=== PATIENT | female | born 1960 | race Caucasian/White ===

== ENCOUNTER 2021-12-13 11:20 | Emergency (ER) | payer MEDICAID, SELFPAY ==
[2021-12-13] VITALS (23 sets, daily range): BP systolic 115–174; BP diastolic 72–111; PULSE 67–89; RESP 4–20; O2SAT 94–100
--- NOTE | 2021-12-13 11:15 | RT.EKG_ITS ---
APPROVED REPORT Exam: Resting ECG Reason for Exam: Patient Location: E HR:83 bpm ECG Measurements Heart Rate 83 AXIS RI 141 P 57 QRSd 86 QRS -33 QT 361 T 60 QTc 425 Conclusion Sinus rhythm...normal P axis Probable left atrial enlargement Left ventricular hypertrophy
--- NOTE | 2021-12-13 11:43 | ED.GENADUL_ITS ---
Discharge Plan Disposition Patient Disposition: HOME Condition: Improving Discharge Details Clinical Impression: Atypical chest pain, Hydronephrosis Primary Care Provider: Lyubov Delgado ED Provider: Alex Barrett Home Meds and New Rx's Prescriptions: Continued meloxicam 15 mg Tablet 15 mg PO DAILY 0RF valacyclovir 500 mg Tablet 500 mg PO DAILY 0RF fluoxetine 20 mg Capsule 60 mg PO DAILY 0RF Discontinued nitrofurantoin monohyd/m-cryst 100 mg Capsule 100 mg PO DAILY 0RF Discharge Instructions Instructions: Chest Pain (ED), DASH Eating Plan (ED) Additional Instructions: Our care management team will place a follow-up for you to urology clinic for recheck. You no longer have signs of active urinary tract infection. You may stop the previously prescribed nitrofurantoin. Please observe a low-salt diet. Please see enclosed information on the Dash diet. Please follow-up with your regular doctor in [place] next week for recheck. Continue once or twice daily home blood pressure monitoring. Return return to the emergency department for any acute concerns. Your work-up today included blood work with cardiac troponin, screening blood work, CT scan of the chest as well as abdomen and pelvis Medical Decision Making 61-year-old female presents from home. She was seen by her primary care physician yesterday for urinary tract infection symptoms sent for which she was placed on nitrofurantoin. At that visit they noted high blood pressure and patient was instructed to check the blood pressures at home. This morning she noted hypertension to 150s over 100 or so at home. This is associated with left frontal headache and left anterior chest discomfort. Patient presents to the ER with a blood pressure 170/110, pulse of 83, oxygenating normally. A broad differential diagnosis is considered, including pneumonia, pneumonitis, gastritis, acute coronary syndrome, PE, hypertensive crisis. Note of recent diagnosis of UTI. Patient given clonidine and a GI cocktail. She is referred for laboratory testing, EKG, chest x-ray. Chest x-ray without acute pulmonary findings. Laboratory analysis notes a white count of 4, hematocrit 42, platelets 217. Chemistries reassuring, troponin negative, D-dimer elevated at 737. Patient referred for CT of the chest to rule out PE given the elevated D-dimer. There is no evidence of chest pathology, but note is made of right hydronephrosis. The patient's urine does not show any evidence of infection, nor of hematuria. We will have her follow-up with Dr. Hendricks in clinic. I discussed with her that she may stop the previously prescribed nitrofurantoin. I will have her observe the Dash diet with low salt and ongoing checks of blood pressure at home. She will follow-up with her primary care for recheck. She is stable and improved, appropriate for discharge to home HPI General Mode of arrival: ambulatory . Date/Time Provider Initiated Documentation: 12/13/21 11:21 . Limitations to Documentation: no limitations . Information obtained by: patient . History of Present Illness 61 year old F presents to the emergency department with the chief complaint of Left-sided chest pain and headache with elevated blood pressure, described as moderate, Quality is described as dull, and is localized to the left. Patient reports no radiation. Patient started experiencing this hour(s) and it has been constant. improves with No relieving factors improve symptom(s), No exacerbating factors reported . Patient notes chest pain and headaches; denies cough, fever/chills, nausea/vomiting and syncope. Patient did receive the following treatments prior to arrival, none Related Data Home Medications Medication Instructions Recorded Confirmed fluoxetine 20 mg capsule 60 mg PO DAILY 12/13/21 12/13/21 meloxicam 15 mg tablet 15 mg PO DAILY 12/13/21 12/13/21 valacyclovir 500 mg tablet 500 mg PO DAILY 12/13/21 12/13/21 Allergies Allergy/AdvReac Type Severity Reaction Status Date / Time iodine Allergy Unverified 12/13/21 13:06 General Stated Complaint: Chest Pain MILA: 2 Review of Systems Narrative: Taking nitrofurantoin for UTI. Has mild upper epigastric burning discomfort. No vomiting, no change to stool. 8 systems were reviewed and otherwise negative PFSH All Active Problems (Updated 12/13/21 @ 18:06 by Alex Barrett MD) Atypical chest pain (Acute) Hydronephrosis (Acute) Medical History (Updated 12/13/21 @ 18:06 by Alex Barrett MD) Breast CA HTN (hypertension) Social History Smoking/Tobacco Use Status: Former Tobacco Use Smoking risk assessment performed?: Yes Drug use: Socially Substance use type: marijuana Do you feel safe at home: Yes Do you feel safe in your relationship?: Yes Exam Narrative Exam Narrative: GEN: awake, alert, oriented 3. Pleasant, well groomed, interactive. HEAD: Normocephalic, atraumatic ENT: Mucous membranes moist, oropharynx unremarkable, External ear exam unremarkable EYES: PERRL, EOMI NECK: Full ROM, no KAYCE, no menigismus CHEST/RESP: Nontender, clear to auscultation bilateral, no wheeze/rhonchi/rales CARDIOVASCULAR: RRR, no murmur, rub ann-marie. 2+ Rad pulse bilateral ABDOMEN: Soft, nontender, no mass. +Bowel sounds EXT: Full ROM, no edema, no rash Neuro: Grossly normal neurologic exam, conversant, interactive. Psych: Speech fluent, thoughts congruent, affect normal Course Vital Signs Vital signs: Vital Signs Pulse 83 12/13/21 11:30 Respiratory Rate 10 L 12/13/21 11:30 Blood Pressure 173/111 H 12/13/21 11:30 Pulse Oximetry 98 12/13/21 11:30 Pulse 83 12/13/21 11:30 Respiratory Rate 10 L 12/13/21 11:30 Respiratory Effort 12/13/21 11:33 Blood Pressure 173/111 H 12/13/21 11:30 Blood Pressure Position Supine 12/13/21 11:30 Pulse Oximetry 98 12/13/21 11:30 Oxygen Delivery Method Room Air 12/13/21 11:30 Oxygen Flow Rate 0 12/13/21 11:30 Pain Level 3 12/13/21 11:30
[2021-12-13] MEDS: ACETAMINOPHEN 1,000 MG/100 ML BTL 400 MG IVPB (12:04)
[2021-12-13] MEDS: Normal Saline Flush 10 ML SYR IVP (12:05)
[2021-12-13] MEDS: Normal Saline 1,000 ML 125 ML IV (12:05)
[2021-12-13] MEDS: cloNIDine 0.1 MG TAB 0.2 MG PO (12:05)
[2021-12-13] MEDS: Lidocaine 2% Viscous 1 ML Solution 15 ML PO (12:18)
[2021-12-13 12:19] LABS: Absolute Basophil Count 0.03 10^3/uL (0.0-0.2); Absolute Eosinophil Count 0.15 10^3/uL (0.0-0.7); Absolute Lymphocyte Count 1.45 10^3/uL (1.2-3.4); Absolute Monocyte Count 0.39 10^3/uL (0.1-0.8); Absolute Neutrophil Count 2.23 10^3/uL (1.2-6.7); Basophils % 0.7; Eosinophils % 3.5; HCT 42.7 % (36.0-46.0); HGB 14.1 g/dL (11.2-15.7); Lymphocytes % 34.1; MCH 29.7 pg (27.0-33.0); MCV 89.9 fL (80-95); MPV 9.7 fL (8.0-11.0); Monocytes % 9.2; Neutrophils % 52.5; Nucleated RBC 0 %; Platelet Count 217 10^3/uL (130-400); RBC 4.75 10^6/uL (3.93-5.22); RDW 13.6 % (11.7-14.6); RDW-SD 45.3 fL; WBC 4.25 10^3/uL (4.4-10.8)
--- NOTE | 2021-12-13 12:26 | DI.RAD_ITS ---
Exam(s) XR PORTABLE CHEST AP EXAM: XR PORTABLE CHEST AP CLINICAL HISTORY: L chest pain TECHNIQUE: 2D digital imaging was performed of the chest. One image was obtained. An AP view was ob tained. COMPARISON: No exams were available for comparison FINDINGS: MEDIASTINUM: Normal. HEART: Normal. PULMONARY VASCULATURE: Normal. LUNGS: Clear. PLEURAL SPACE: No pleural effusion or pneumothorax. BONE:Within normal limits for the patient's age. OTHER FINDINGS:Normal. IMPRESSION: No acute pulmonary findings. DATA REPOSITORY: RADIATION DOSE DELIVERED:
[2021-12-13 12:35] LABS: ALT 21 U/L (14-59); AST 15 U/L (15-37); Albumin 3.7 g/dL (3.4-5.0); Alkaline Phosphatase 60 U/L (46-116); Anion Gap 12.4 mmol/L (3-11); BUN 14 mg/dL (7-18); Bilirubin, Total 0.4 mg/dL (0.2-1.0); CO2 24.6 mmol/L (21.0-32.0); CREATININE 0.9 mg/dL (0.55-1.02); Calcium 9.1 mg/dL (8.5-10.1); Chloride 103 mmol/L (98-107); Glucose 109 mg/dL (74-106); Potassium 3.9 mmol/L (3.5-5.1); Sodium 140 mmol/L (136-145); Total Protein 7.6 g/dL (6.4-8.2); Troponin I < 50 ng/L (<or=60)
--- NOTE | 2021-12-13 12:45 | DI.CT_ITS ---
Exam(s) CT CHEST PE CTA EXAM: CT CHEST PE CTA CLINICAL HISTORY: L chest pain, elev DDImer. TECHNIQUE: Imaging Protocol: Axial CT angiography was performed with multi-slice acquisition and mu lti-planar and/or 3D reconstructions. CONTRAST MATERIAL: Intravenous: Omnipaque 350 Contrast volume:76 mL COMPARISON: CR XR PORTABLE CHEST AP from 12/13/2021 FINDINGS: Tracheobronchial tree: Patent where visualized. Pulmonary parenchyma: No consolidation or dominant measurable mass. No architectural distortion. Ther e is a 3.8 mm nodule associated with the right minor fissure. There is dependent atelectasis in the lung bases. Pulmonary Arteries: No evidence of filling defect to suggest pulmonary emboli. Mediastinum and Darshnaa: No dominant adenopathy or fluid collection. The esophagus is unremarkable. Visualized thyroid gland: Unremarkable. Pleura: No effusion or pneumothorax. Heart: The heart is not dilated. Coronary artery calcification is present. No pericardial effusion. Aorta: Thoracic aorta non-dilated. No evidence of dissection. Upper abdomen: There is dilatation of the right renal pelvis and asymmetric enhancement of the right kidney relative to the left. This is suspicious for hydronephrosis. There is mild stranding around the right kidney. There is a 1.1 cm round hypodense lesion in the left lobe of the liver. Its appe arance is suggestive of a cyst. Soft tissues: Unremarkable. Bones: Within normal limits for the patient's age. IMPRESSION: 1. No evidence of pulmonary embolism, thoracic aortic dissection or aneurysm. 2. Dilatation of the right renal pelvis and mild stranding around the right kidney. The findings are suspicious for hydronephrosis. Renal colic CT may be obtained for further evaluation. 3. Results of this exam have been verbally communicated with provider. RADIATION DOSE DELIVERED: 445.45mGy.cm Total DLP DATA REPOSITORY: All CT scans at this facility are submitted to the National Radiology Data Registry (NRDR) Dose Index Registry (DIR) with the [employer] ([employer]). RADIATION OPTIMIZATION: All CT scans at this facility use at least one of these dose optimization te chniques: automated exposure control; mA and/or kV adjustment per patient size (includes targeted exa ms where dose is matched to clinical indication); or iterative reconstruction.
[2021-12-13 12:51] LABS: D-Dimer 737 ng/mlFEU (<500)
[2021-12-13] MEDS: Ketorolac 15 MG/ML VIAL IVP (13:07)
[2021-12-13] MEDS: diphenhydrAMINE 50 MG/ML VIAL IVP (13:47)
[2021-12-13] MEDS: methylPREDNISolone SUCC 125 MG VIAL IVP (13:47)
[2021-12-13] MEDS: Omnipaque 350 MG/ML 100 ML BTL IJ (15:13)
--- NOTE | 2021-12-13 15:15 | DI.CT_ITS ---
Exam(s) CT RENAL COLIC WO EXAM: CT RENAL COLIC WO CLINICAL HISTORY: R hydronephrosis, pain. TECHNIQUE: Imaging Protocol: Axial computed tomography images with coronal and sagittal reformatted images were created and reviewed. COMPARISON: CT CT CHEST PE CTA from 12/13/2021 FINDINGS: There is IV contrast present secondary to the patient's CT angiography of the chest from earlier in . ABDOMEN: Lung Bases: Normal where visualized. Liver: Normal density. There is a cyst in the left lobe of the liver. Gallbladder and biliary tract: No radiodense calculus or biliary ductal dilation. Pancreas: Normal density, no abnormal calcifications or inflammatory process. Spleen: Normal. Kidneys: Normal size, contour and axis.There is marked dilatation of the right renal collecting syste m and mild dilatation of the right ureter. The IV contrast lingers in the renal pelvis. No calcifie d stone is seen. The right UVJ cannot be well seen due to the IV contrast in the urinary bladder. N o masses seen. The left kidney is unremarkable without evidence of obstruction. Adrenal glands: No mass is seen. Lymph nodes: Within normal limits. Abdominal Aorta: Abdominal portion non-dilated. PELVIS: Bladder:Symmetric distention, no gross wall thickening. Bowel: No obstruction or bowel wall thickening. Appendix is unremarkable. There is a small hiatal he rnia. Peritoneal cavity: No ascites, collection or mesenteric inflammatory response. No free air. Reproductive organs: Within normal limits. Bones: Within normal limits. Soft Tissues: Within normal limits. IMPRESSION: Hydronephrosis of the right kidney. No stone is visualized. This may however be secondary to obscur ation by the IV contrast material in the collecting system and urinary bladder. Follow-up as clinica lly appropriate. Results of this exam have been verbally communicated with provider. RADIATION DOSE DELIVERED: 1,096.48mGy.cm Total DLP DATA REPOSITORY: All CT scans at this facility are submitted to the National Radiology Data Registry (NRDR) Dose Index Registry (DIR) with the [employer] (ACR). RADIATION OPTIMIZATION: All CT scans at this facility use at least one of these dose optimization te chniques: automated exposure control; mA and/or kV adjustment per patient size (includes targeted exa ms where dose is matched to clinical indication); or iterative reconstruction.
[2021-12-13 15:36] LABS: Troponin I < 50 ng/L (<or=60)
[2021-12-13 17:12] LABS: Bilirubin Negative (Negative); Blood Negative (Negative); Clarity Clear (Clear); Glucose Negative (Negative); Ketones Negative (Negative); Leukocyte Esterase Negative (Negative); Nitrite Negative (Negative); Specific Gravity 1.015 (1.005-1.025); Urobilinogen 0.2 EU/dL (Up TO 0.2)
--- NOTE | 2021-12-13 17:32 | NUR.NOTE ---
Nursing Note: Referral faxed to [facility] for right hydronephrosis, with them to determine time of appt. Isela Lobo
== END 2021-12-13 18:08 | disposition home or self-care (01) ==
LOC: ER 17:51
PROVIDERS: Emergency Provider Emergency Medicine; PCP Nurse Practitioner Family
DX: R07.89 Other chest pain (principal)
CPT/HCPCS: 36415; 71275; 80053; 93005; 96361; 96365; 96375; 99285; 71045; 74176; 81003; 83735; 84484; 85025; 85379; 93010; 99284; J0131; J1200; J1885; J2930; J3490

== ENCOUNTER → 2022-02-21 10:08 | Outpatient (CLI) | payer MEDICAID, SELFPAY ==
--- NOTE | 2022-02-21 10:00 | DI.US_ITS ---
Exam(s) US LOWER EXTREMITY VENOUS RT EXAM: US LOWER EXTREMITY VENOUS RT CLINICAL HISTORY: RT CALF PAIN, M79.661. TECHNIQUE: Ultrasound performed using standard protocol. COMPARISON: No exams were available for comparison FINDINGS: Duplex venous ultrasound was performed according to the usual protocol. The deep veins are freely com pressible throughout and there is normal flow augmentation with manual calf compression. 2D and Doppl er evaluation are unremarkable. IMPRESSION: No evidence of deep venous thrombosis of the right lower extremity. DATA REPOSITORY:
== END ==
PROVIDERS: PCP Nurse Practitioner Family; Visit Provider Nurse Practitioner Family
DX: M79.661 Pain in right lower leg (principal)
CPT/HCPCS: 93971

== ENCOUNTER 2023-03-12 15:57 | Emergency (ER) | payer MEDICAID, SELFPAY ==
[2023-03-12] VITALS (51 sets, daily range): BP systolic 138–211; BP diastolic 80–140; PULSE 64–166; RESP 6–34; TEMP 36.4; O2SAT 85–99
--- NOTE | 2023-03-12 16:00 | RT.EKG_ITS ---
APPROVED REPORT Exam: Resting ECG Reason for Exam: chest pain Patient Location: E HR:74 bpm ECG Measurements Heart Rate 74 AXIS DE 143 P 70 QRSd 84 QRS -3 QT 376 T 59 QTc 417 Conclusion Sinus rhythm...normal P axis, V-rate 60- 99 Probable left atrial enlargement...P >50mS, <-0.10mV V1
--- NOTE | 2023-03-12 16:23 | W.ED.GENAD ---
Discharge Plan Disposition Patient Disposition: Home Discharge Details Clinical Impression: Urinary tract infection, Atypical chest pain, HTN (hypertension) Primary Care Provider: Lyubov Delgado ED Provider: Joshua Santo Meds and New Rx's Prescriptions: New ciprofloxacin HCl 250 mg tablet 250 mg PO BID 7 Days Qty: 14 0RF Continued benzonatate 100 mg capsule 100 mg PO TID PRN (Reason: cough) Qty: 14 0RF Patient Comments: not taking meloxicam 15 mg Tablet 15 mg PO DAILY valacyclovir 500 mg Tablet 500 mg PO DAILY fluoxetine 20 mg Capsule 60 mg PO DAILY losartan 100 mg Tablet 100 mg PO DAILY Discharge Instructions Instructions: Chest Pain (ED), Urinary Tract Infection in Women (ED), Hypertension (ED) Referrals: Lyubov Delgado [Primary Care Provider] - 5 days Discharge Data Discharge Physician: Joshua Santo Medical Decision Making Patient who presents to the emergency department with very high blood pressure chest pain very anxious with urinary symptoms. Patient had labs done urinalysis 2 troponins 3 hours apart and a D-dimer. Urinalysis showed a UTI which was treated with ciprofloxacin. EKG was within normal limits bedside echo shows mild LVH but no abnormality. Labs which included 2 troponins were negative. D-dimer was elevated and she subsequently had a CAT scan angiogram of the chest which shows no pulmonary embolus and no other abnormality. It was concerning that she has had high blood pressure all along is uncontrolled although she was sleeping the blood pressure was 130/80 and on discharge was 140/100. I have advised her to follow-up with her primary care physician for she might need another medication to add to her hypertensive regimen Differential Diagnosis Differential Diagnosis: 1. Uncontrolled hypertension 2. Acute coronary syndrome 3. Urinary tract Medical Records Medical records reviewed: Yes I reviewed the patient's medical records. Imaging Data Radiologic Study: Imaging: CT Scan Radiologist's impression: No acute abnormality no evidence of pulmonary embolus Lab Data Lab results reviewed: Yes I reviewed the patient's lab results. Labs: RUN DATE: 03/12/23 [facility] PAGE 1 RUN TIME: [id number] RUN USER: [place] [address] Sunshine Bernal MD PATIENT REPORT PATIENT: Shannon Brock LOC: [facility] #: [id number] /SX: 1960 F ROOM: RE03/12/[address]: Joshua Santo M.D. STATUS: REG ER BED: DIS: SPEC #: [id number] MARTHA: 03/12/23 STATUS: COMP REQ #: [id number] RECD: 03/12/[address]: Joshua Santo M.D. ENTERED: 03/12/[address]: LYUBOV DELGADO APRN FAX #: ORDERED: Urinalysis, UA Micro Test Result Flag Reference Verified Color Yellow Yellow 03/12/23 Clarity Clear Clear 03/12/23 Specific [place] 1.015 1.005-1.025 03/12/23 pH 7.0 5-8 03/12/23 Leukocyte Esterase Large H Negative 03/12/23 Nitrite Negative Negative 03/12/23 Protein Negative Negative mg/dL 03/12/23 Glucose Negative Negative mg/dL 03/12/23 Ketones Negative Negative mg/dL 03/12/23 Urobilinogen 0.2 Up to 0.2 mg/dL 03/12/23 Bilirubin Negative Negative 03/12/23 Blood Small H Negative 03/12/23 WBC 10-20 H 0-5 HPF 03/12/23 RBC 3-5 H 0-2 HPF 03/12/23 Epithelial Cells Few Negative HPF 03/12/23 Bacteria Moderate Negative HPF 03/12/23 Crystals Negative Negative HPF 03/12/23 Mucus Negative Negative 03/12/23 Casts Negative Negative LPF 03/12/23 C & S Indicated? 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 STATUS: REG ER BED: DIS: SPEC #: [id number] MRATHA: 03/12/23 STATUS: COMP REQ #: [id number] RECD: 03/12/[address]: Joshua Santo M.D. ENTERED: 03/12/23 [facility] DR: LYUBOV DELGADO APRN FAX #: ORDERED: CBC/Diff Test Result Flag Reference Verified WBC 6.30 4.4-10.8 10^3/uL 03/12/23 RBC 4.34 3.93-5.22 10^6/uL 03/12/23 HGB 13.1 11.2-15.7 g/dL 03/12/23 HCT 39.4 36.0-46.0 % 03/12/23 MCV 91 80-95 fL 03/12/23 MCH 30.2 27.0-33.0 pg 03/12/23 MCHC 33.2 32.0-36.0 % 03/12/23 RDW 14.2 11.7-14.6 % 03/12/23 Platelet Count 228 130-400 10^3/uL 03/12/23 MPV 9.4 8.0-11.0 fL 03/12/23 Neutrophils % 54.8 03/12/23 Lymphocytes % 32.2 03/12/23 Monocytes % 10.3 03/12/23 Eosinophils % 1.9 03/12/23 Basophils % 0.6 03/12/23 Immature Grans % 0.2 03/12/23 Nucleated RBC 0.0 0.0-0.3 % 03/12/23 Absolute Neutrophil Count 3.45 1.2-6.7 10^3/uL 03/12/23 Absolute Lymphocyte Count 2.03 1.2-3.4 10^3/uL 03/12/23 Absolute Monocyte Count 0.65 0.1-0.8 10^3/uL 03/12/23-1711 Absolute Eosinophil Count 0.12 0.0-0.7 10^3/uL 03/12/23 Absolute Basophil Count 0.04 0.0-0.2 10^3/uL 03/12/23 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 STATUS: REG ER BED: DIS: SPEC #: [id number] MARTHA: 03/12/23 STATUS: COMP REQ #: [id number] RECD: 03/12/[address]: Joshua Santo M.D. ENTERED: 03/12/23 [facility] DR: LYUBOV DELGADO APRN FAX #: ORDERED: CMP, MG, Troponin I, NT-proBNP Test Result Flag Reference Verified Calcium 9.1 8.5-10.1 mg/dL 03/12/23 Glucose 96 74-106 mg/dL 03/12/23 BUN 19 H 7-18 mg/dL 03/12/23 Creatinine 1.1 H 0.55-1.02 mg/dL 03/12/23 Estimated GFR 56.81 mL/min/1.73m2 03/12/23 The eGFR is calculated from a serum creatinine using the CKD-EPI 2020 equation. Other variables required for the equation are gender and age; this equation does not include a race coefficient. This equation has similar overall performance to previous equations except values may differ, in particular, in patients with higher values of eGFR and younger-aged adults. Total Protein 7.3 6.4-8.2 g/dL 03/12/23 Albumin 3.3 L 3.4-5.0 g/dL 03/12/23 Bilirubin, Total 0.2 0.2-1.0 mg/dL 03/12/23 Alk Phos 54 46-116 U/L 03/12/23 Sodium 138 136-145 mmol/L 03/12/23 Potassium 4.3 3.5-5.1 mmol/L 03/12/23 Chloride 103 98-107 mmol/L 03/12/23 CO2 29.8 21.0-32.0 mmol/L 03/12/23 Anion Gap 5.2 3-11 mmol/L 03/12/23 AST 12 L 15-37 U/L 03/12/23 ALT 18 14-59 U/L 03/12/23 Magnesium 2.0 1.8-2.4 mg/dL 03/12/23 Cardiac Troponin I < 50 <or=60 ng/L 03/12/23 NT-proBNP 433 H <300 pg/mL 03/12/23 NT-proBNP values <300 pg/mL have a 98% negative predictive value for excluding acute congestive heart failure (CHF). NT-proBNP values >450 pg/mL are consistent with CHF in adults <50 years of age. A diagnostic cut-off of 900 pg/mL has been suggested in adults >50 years of age in the absence of renal failure. A cut-off of 1200 pg/mL for patients with an eGFR less than 60 yields a diagnostic sensitivity and specificity of 89% and 72% for acute congestive failure. NOTE: Supra-physiologic doses of Biotin(B7)may cause false negative results. RUN DATE: 03/12/23 [facility] PAGE 1 RUN TIME: [phone] RUN USER: [place] [address] Snushine Bernal MD PATIENT REPORT PATIENT: Shannon Brock LOC: ER U #: [id number] /SX: 1960 F ROOM: RE03/12/[address]: Joshua Santo M.D. STATUS: REG ER BED: DIS: SPEC #: [id number] MARTHA: 03/12/23 STATUS: COMP REQ #: [id number] RECD: 03/12/[address]: Joshua Santo M.D. 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 HPI Narrative: Patient who presents to the emergency department complaining of midsternal on and off chest pain anxiety and also reports urinary frequency and urgency. Patient states she is very frustrated was told her primary care physician and they have not treated her urinary infection that she thinks she has. Patient reports dysuria. Also the patient states that her blood pressure has been high and she is sometimes unable to sleep. Denies any sweating denies any syncope denies any palpitation Related Data Home Medications Medication Instructions Recorded Confirmed fluoxetine 20 mg capsule 60 mg PO DAILY 12/13/21 03/12/23 meloxicam 15 mg tablet 15 mg PO DAILY 12/13/21 03/12/23 valacyclovir 500 mg tablet 500 mg PO DAILY 12/13/21 03/12/23 benzonatate 100 mg capsule 100 mg PO TID PRN cough #14 caps 10/12/22 10/12/22 ciprofloxacin HCl 250 mg tablet 250 mg PO BID 7 days #14 tabs 03/12/23 losartan 100 mg tablet 100 mg PO DAILY 03/12/23 03/12/23 Previous Rx's Medication Instructions Recorded benzonatate 100 mg capsule 100 mg PO TID PRN cough #14 caps 10/12/22 ciprofloxacin HCl 250 mg tablet 250 mg PO BID 7 days #14 tabs 03/12/23 Allergies Allergy/AdvReac Type Severity Reaction Status Date / Time fosaprepitant Allergy Unverified 03/12/23 16:09 iodine Allergy Unverified 03/12/23 16:09 General Stated Complaint: Chest Pain MILA: 3 Review of Systems All systems reviewed & are unremarkable except as noted in HPI and below Constitutional Constitutional: Reports as per HPI and Reports difficulty sleeping Eyes Eyes: Reports as per HPI and Reports system reviewed and no additional complaints, except as documented ENT Ears, Nose, Mouth, and Throat: Reports system reviewed and no additional complaints, except as documented and Reports as per HPI Cardiovascular Cardiovascular: Reports as per HPI and Reports system reviewed and no additional complaints, except as documented Respiratory Respiratory: Reports as per HPI Gastrointestinal Gastrointestinal: Reports as per HPI Genitourinary Genitourinary: Reports nocturia and Reports dysuria Musculoskeletal Musculoskeletal: Reports system reviewed and no additional complaints, except as documented Neurologic Neurologic: Reports system reviewed and no additional complaints, except as documented and Reports as per HPI Psychiatric Psychiatric: Reports anxiety PFSH All Active Problems (Updated 03/12/23 @ 22:19 by Joshua Santo MD) Urinary tract infection (Acute) Atypical chest pain (Acute) HTN (hypertension) (Chronic) Medical History Breast CA HTN (hypertension) Social History Smoking/Tobacco Use Status: Former Tobacco Use Smoking risk assessment performed?: Yes Drug use: Socially Substance use type: marijuana Do you feel safe at home: Yes Do you feel safe in your relationship?: Yes Exam Const General: cooperative, healthy appearing, comfortable and no acute distress HENMT Head: normal to inspection, no palpable skull fracture, normocephalic and atraumatic Eyes General: appearance normal, both eyes and all related structures Eyelids: eyelids normal Pupils: PERRL EOM: EOM intact bilaterally Neck Neck: normal visual inspection, full ROM and no lymphadenopathy Chest Chest: normal inspection of the chest Breast inspection: Other (Patient with bilateral mastectomies) Resp Effort & Inspection: normal respiratory effort and able to speak in complete sentences Auscultation: clear to auscultation bilaterally Cardio Jugular venous pressure: no JVD Palpation: normal PMI Rate: regular rate Rhythm: regular rhythm Heart Sounds: S1 normal and S2 normal GI Inspection: normal to inspection Palpation: soft Back/Spine/Pelvis Back: no CVA tenderness Skin General skin exam: no rashes or lesions noted Neuro General: patient alert, patient awake and patient oriented x3 Cranial Nerves: CN's II-XI intact bilaterally Extrem General: normal to inspection and full ROM Psych Appearance: grossly normal Mood: anxious mood Course Patient presents to the emergency department complaining of chest pain was noted to be hypertensive with initial pressures in 160/125 but subsequently she calmed down and the pressure came down to 130/80. Vital Signs Vital signs: Vital Signs Temperature 36.4 C 03/12/23 16:07 Pulse 81 03/12/23 16:07 Respiratory Rate 18 03/12/23 16:07 Blood Pressure 195/125 H 03/12/23 16:07 Pulse Oximetry 99 03/12/23 16:07 Temperature 36.4 C 03/12/23 16:07 Temperature Source Oral 03/12/23 16:07 Pulse 81 03/12/23 16:07 Respiratory Rate 18 03/12/23 16:07 Respiratory Effort Normal, Non-Labored 03/12/23 16:07 Blood Pressure 195/125 H 03/12/23 16:07 Pulse Oximetry 99 03/12/23 16:07 POCUS Exam (ED) Limited Cardiac Exam DATE OF EXAM: 03/12/23 TIME OF EXAM: 22:17 PROVIDER THAT PERFORMED THE STUDY: Joshua Santo IS THIS A REPEAT EXAM DURING THIS ENCOUNTER: no REASON FOR EXAM: Chest pain VISUALIZED STRUCTURES: Four Chambers, Left atrium, Left ventricle, LVOT, Right atrium, Right ventricle, Aortic valve, Mitral valve, Interventricular septum and IVC VIEW OBTAINED: Apical 4-Chamber, Parasternal long-axis, Parasternal short-axis and Subxiphoid PERTINENT FINDINGS/IMPRESSION: IVC inspiratory collapsability and No apparent abnormalities; No LV dysfunction, No pericardial effusion, No plethoric IVC and No RV dysfunction DIFFERENTIAL DIAGNOSES: Normal left ventricular function normal IVC collapsibility mild LVH no pericardial effusion normal bedside echo Exam complete
--- NOTE | 2023-03-12 16:45 | DI.RAD_ITS ---
Exam(s) XR PORTABLE CHEST AP EXAM: XR PORTABLE CHEST AP CLINICAL HISTORY: chest pain TECHNIQUE: 2D digital imaging was performed of the chest. One image was obtained. An AP view was ob tained. COMPARISON: CR XR PORTABLE CHEST AP from 12/13/2021 FINDINGS: MEDIASTINUM: Normal. HEART: Normal. PULMONARY VASCULATURE: Normal. LUNGS: Clear. PLEURAL SPACE: No pleural effusion or pneumothorax. BONE:Within normal limits for the patient's age. OTHER FINDINGS:Normal. IMPRESSION: No acute pulmonary findings. DATA REPOSITORY: RADIATION DOSE DELIVERED:
[2023-03-12 17:08] LABS: Abs Immature Grans 0.01 10^3/uL (0.0-0.06); Absolute Basophil Count 0.04 10^3/uL (0.0-0.2); Absolute Eosinophil Count 0.12 10^3/uL (0.0-0.7); Absolute Lymphocyte Count 2.03 10^3/uL (1.2-3.4); Absolute Monocyte Count 0.65 10^3/uL (0.1-0.8); Absolute Neutrophil Count 3.45 10^3/uL (1.2-6.7); Basophils % 0.6; Eosinophils % 1.9; HCT 39.4 % (36.0-46.0); HGB 13.1 g/dL (11.2-15.7); Immature Grans % 0.2; Lymphocytes % 32.2; MCH 30.2 pg (27.0-33.0); MCHC 33.2 % (32.0-36.0); MCV 91 fL (80-95); MPV 9.4 fL (8.0-11.0); Monocytes % 10.3; Neutrophils % 54.8; Platelet Count 228 10^3/uL (130-400); RBC 4.34 10^6/uL (3.93-5.22); RDW 14.2 % (11.7-14.6); RDW-SD 47.8 fL
[2023-03-12 17:27] LABS: ALT 18 U/L (14-59); AST 12 U/L (15-37); Albumin 3.3 g/dL (3.4-5.0); Alkaline Phosphatase 54 U/L (46-116); Anion Gap 5.2 mmol/L (3-11); BUN 19 mg/dL (7-18); Bilirubin, Total 0.2 mg/dL (0.2-1.0); CO2 29.8 mmol/L (21.0-32.0); CREATININE 1.1 mg/dL (0.55-1.02); Calcium 9.1 mg/dL (8.5-10.1); Chloride 103 mmol/L (98-107); Estimated GFR 56.81 (mL/min/1.73m2); Glucose 96 mg/dL (74-106); NT-proBNP 433 pg/mL (<300); Potassium 4.3 mmol/L (3.5-5.1); Sodium 138 mmol/L (136-145); Total Protein 7.3 g/dL (6.4-8.2); Troponin I < 50 ng/L (<or=60)
[2023-03-12 17:40] LABS: D-Dimer 752 ng/mlFEU (<500)
--- NOTE | 2023-03-12 17:46 | DI.VRAD_ITS ---
PROCEDURE INFORMATION: Exam: XR Chest Exam date and time: 03/12/2023 5:19 PM Age: 62 years old Clinical indication: Chest pain TECHNIQUE: Imaging protocol: Radiologic exam of the chest. Views: 1 view. COMPARISON: CR XR PORTABLE CHEST AP 12/13/2021 12:12 PM FINDINGS: Lungs: Unremarkable. No consolidation. Pleural spaces: Unremarkable. No pleural effusion. No pneumothorax. Heart/Mediastinum: Unremarkable. No cardiomegaly. Bones/joints: Unremarkable. IMPRESSION: No acute findings. Dictated and Authenticated by: Dorothy Tillman MD. Ordering:JERZY Lewis MD
--- NOTE | 2023-03-12 18:30 | DI.CT_ITS ---
Exam(s) CT CHEST PE CTA EXAM: CT CHEST PE CTA CLINICAL HISTORY: chest pain and dyspnea. TECHNIQUE: Imaging Protocol: Axial CT angiography was performed with multi-slice acquisition and mu lti-planar and/or 3D reconstructions. CONTRAST MATERIAL: Intravenous: Omnipaque 350 contrast volume:100 mL COMPARISON: CT CT RENAL COLIC WO from 12/13/[address] CHEST PE CTA from 12/13/2021 FINDINGS: Tracheobronchial tree: Patent where visualized. Pulmonary parenchyma: No consolidation or dominant measurable mass. There is a stable perifissural no dule associated with the right middle lobe. There also stable peripheral nodules in the medial aspec t of the right lower lobe. The largest nodule is 5 mm. No new pulmonary nodules are seen. There ar e dependent atelectatic changes in the lungs. No focal consolidating infiltrates are present. Pulmonary Arteries: No evidence of filling defect to suggest pulmonary emboli. Mediastinum and [place]arshana: No dominant adenopathy or fluid collection. The esophagus is unremarkable. Visualized thyroid gland: Unremarkable. Pleura: No effusion or pneumothorax. Heart: There is mild cardiomegaly. Mild coronary artery calcification is present. No pericardial ef fusion. Aorta: Thoracic aorta non-dilated. No evidence of dissection. Upper abdomen: There is a stable cyst in the left lobe of the liver. Soft tissues: Unremarkable. Bones: Within normal limits for the patient's age. IMPRESSION: No evidence of pulmonary embolism, thoracic aortic dissection or aneurysm. RADIATION DOSE DELIVERED: 399.07mGy.cm Total DLP DATA REPOSITORY: All CT scans at this facility are submitted to the National Radiology Data Registry (NRDR) Dose Index Registry (DIR) with the [employer] (ACR). RADIATION OPTIMIZATION: All CT scans at this facility use at least one of these dose optimization te chniques: automated exposure control; mA and/or kV adjustment per patient size (includes targeted exa ms where dose is matched to clinical indication); or iterative reconstruction.
[2023-03-12 18:40] LABS: Bilirubin Negative (Negative); Blood Small (Negative); Clarity Clear (Clear); Glucose Negative (Negative); Ketones Negative (Negative); Leukocyte Esterase Large (Negative); Nitrite Negative (Negative); Specific Gravity 1.015 (1.005-1.025); Urobilinogen 0.2 mg/dL (Up to 0.2)
[2023-03-12 18:47] LABS: Bacteria Moderate HPF (Negative); Casts Negative LPF (Negative); Crystals Negative HPF (Negative); Epithelial Cells Few HPF (Negative); Mucus Negative (Negative)
[2023-03-12 18:48] LABS: C & S Indicated? Yes
[2023-03-12] MEDS: diphenhydrAMINE 50 MG/ML VIAL 25 MG IVP (19:30)
[2023-03-12] MEDS: methylPREDNISolone SUCC 125 MG VIAL IVP (19:30)
[2023-03-12] MEDS: Omnipaque 350 MG/ML 100 ML BTL IJ (20:22)
[2023-03-12] MEDS: Normal Saline Flush 10 ML SYR IVP (20:25)
[2023-03-12] MEDS: Normal Saline - Diluent 50 ML VIAL IJ (20:25)
[2023-03-12 20:28] LABS: Troponin I < 50 ng/L (<or=60)
--- NOTE | 2023-03-12 21:31 | DI.VRAD_ITS ---
PROCEDURE INFORMATION: Exam: CTA Chest With Contrast Exam date and time: 03/12/2023 8:39 PM Age: 62 years old Clinical indication: Dyspnea and other: Chest pain TECHNIQUE: Imaging protocol: Computed tomographic angiography of the chest with contrast. 3D rendering (Not supervised by radiologist): MIP and/or 3D reconstructed images were created by the technologist. Contrast material: 350; Contrast volume: 100 ml; Contrast route: INTRAVENOUS (IV); COMPARISON: CT CHEST PE CTA 12/13/2021 2:56 PM FINDINGS: Pulmonary arteries: Normal. No pulmonary emboli. Aorta: Unremarkable. No aortic aneurysm. No aortic dissection. Lungs: Unremarkable. No consolidation. No masses. Pleural spaces: Unremarkable. No pneumothorax. No pleural effusion. Heart: Unremarkable. No cardiomegaly. No pericardial effusion. Lymph nodes: Unremarkable. No enlarged lymph nodes. Bones/joints: Unremarkable. No acute fracture. Soft tissues: Unremarkable. IMPRESSION: No acute findings. Dictated and Authenticated by: Clifford Germain MD. Ordering:JERZY Lewis MD
[2023-03-14 10:33] LABS: Lyme Ab w Rflx to Lyme Confirm Negative (Negative)
== END 2023-03-12 22:26 | disposition home or self-care (01) ==
PROVIDERS: Emergency Provider Emergency Medicine Emergency Medical Services; PCP Nurse Practitioner Family
DX: R07.9 Chest pain, unspecified (principal); N39.0 Urinary tract infection, site not specified; I10 Essential (primary) hypertension; Z87.891 Personal history of nicotine dependence
CPT/HCPCS: 36415; 71275; 80053; 93005; 96374; 96375; 99283; 71045; 81003; 81015; 83735; 83880; 84484; 85025; 85379; 86618; 87086; 93010; 99284; J1200; J2930; J3490

== ENCOUNTER 2023-04-04 12:10 | Outpatient (CLI) | payer MEDICAID, SELFPAY ==
[2023-04-04 12:45] LABS: ALT 21 U/L (14-59); AST 17 U/L (15-37); Albumin 3.6 g/dL (3.4-5.0); Alkaline Phosphatase 51 U/L (46-116); Anion Gap 6.8 mmol/L (3-11); BUN 17 mg/dL (7-18); Bilirubin, Total 0.4 mg/dL (0.2-1.0); CO2 30.2 mmol/L (21.0-32.0); Calcium 9.1 mg/dL (8.5-10.1); Chloride 103 mmol/L (98-107); Glucose 104 mg/dL (74-106); Potassium 3.3 mmol/L (3.5-5.1); Sodium 140 mmol/L (136-145); Total Protein 7.2 g/dL (6.4-8.2)
== END 2023-04-04 12:11 | disposition home or self-care (01) ==
LOC: LBO 12:10
PROVIDERS: PCP Nurse Practitioner Family; Visit Provider Nurse Practitioner Family
DX: N28.9 Disorder of kidney and ureter, unspecified (principal)
CPT/HCPCS: 36415; 80053

== ENCOUNTER 2023-04-08 10:29 | Emergency (ER) | payer MEDICAID, SELFPAY ==
[2023-04-08 10:34] VITALS: BP 146/107; PULSE 94; RESP 18; TEMP 36.7; O2SAT 97
--- NOTE | 2023-04-08 11:30 | DI.CT_ITS ---
Exam(s) CT HEAD WO EXAM: CT HEAD WO CLINICAL HISTORY: headache. TECHNIQUE: Imaging Protocol: Axial computed tomography images with coronal and sagittal reformatted images were created and reviewed COMPARISON: No exams were available for comparison FINDINGS: There are no skull fractures. Small amount of fluid is noted in the lateral aspect of the left spheno id sinus. Other paranasal sinuses are clear. There is no evidence of intracranial hemorrhage, mass effect, or shift of midline structures. There are no extra-axial fluid collections. The ventricles are not enlarged or shifted and there is no blo od within the ventricular system nor within the basal cisterns. Mild periventricular hypodensity noted consistent with chronic small vessel disease. IMPRESSION: No acute intracranial findings on this noninfused CT scan of the brain. RADIATION DOSE DELIVERED: 812.64mGy.cm Total DLP DATA REPOSITORY: All CT scans at this facility are submitted to the National Radiology Data Registry (NRDR) Dose Index Registry (DIR) with the [employer] (ACR). RADIATION OPTIMIZATION: All CT scans at this facility use at least one of these dose optimization te chniques: automated exposure control; mA and/or kV adjustment per patient size (includes targeted exa ms where dose is matched to clinical indication); or iterative reconstruction.
--- NOTE | 2023-04-08 11:34 | ED.GENADUL_ITS ---
Discharge Plan Disposition Patient Disposition: Home Condition: Stable Discharge Details Clinical Impression: Hydronephrosis, Headache, Nausea & vomiting Primary Care Provider: Lyubov Delgado ED Provider: Xavier Mcgee Home Meds and New Rx's Prescriptions: New ondansetron 4 mg tablet,disintegrating 4 mg PO Q8H PRN (Reason: nausea and vomiting) Qty: 30 0RF Continued benzonatate 100 mg capsule 100 mg PO TID PRN (Reason: cough) Qty: 14 0RF Patient Comments: not taking meloxicam 15 mg Tablet 15 mg PO DAILY valacyclovir 500 mg Tablet 500 mg PO DAILY fluoxetine 20 mg Capsule 60 mg PO DAILY losartan 100 mg Tablet 100 mg PO DAILY Discharge Instructions Instructions: Acute Nausea and Vomiting (ED), General Headache (ED) Additional Instructions: call nuclear medicine to arrange for your imaging study. Once this is set call urology office, Dr. Hendricks advised they like to see you the day of your imaging study after the study is complete if you feel more ill, have severe worsening pain or difficulty breathing return to the emergency department you should also follow up with your primary care provider within 1-2 weeks Referrals: Blaine Hendricks MD [ [facility] STAFF PHYSICIAN] - Medical Decision Making 62 yo female with hx of htn who comes in with over a day of n/v with right lower abdominal pain and slowly worsening headache as well. She denies fevers/chills, chest pressure, dyspnea. She also notes a month of worsening general fatigue, does note she had a tick on her a month ago and is unclear how long this was on her for, denies rashes. She arrives hemodyanmically stable. She is caox4 speaking clearly. She has no focal mot or deficits, CN II-XII intact, no meningismus, clear lungs, no murmurs, no leg swelling or calf tenderness. She has a soft abdomen with tenderness in the rlq. Given her n/v and abdominal pain will proceed with cbc, cmp, lipase and ct abdomen pelvis to evaluate for possible appendicitis. 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 Will obtain noncontrast ct to evaluate for possible mass though this seems less likely then tension headache. Will treat with fluids, toradol, zofran and reassess. pt feels significantly better, ambulating on her own without issues. UA contaminated but had a negative culture a month ago with similar symptoms. CT head negative, ct abdomen/pelvis has chronic right hydro but now has left sided hydro. Discussed the case with Dr. Hendricks and advised this can be f/u with them with outpatient nuclear medicine renogram with lasix washout and they will f/u with her the same day. His office was contacted and advised to have patient make the appointment with nuclear medicine then call their office to arrange f/u. CT shows questions colitis but has not had diarrhea. Pt stable and feels well enough for d/c, do not feel she requires abx at this time. Will provide prn zofran, return precautions given Differential Diagnosis Differential Diagnosis: food illness, appendicitis, migraine Imaging Data Radiologic Study: Attestation: I personally reviewed and interpreted this imaging study as follows: Imaging: CT Scan Radiologist's impression: IMPRESSION: 1. There is now prominent bilateral hydronephrosis above the ureteropelvic junctions bilaterally.? Mid-lower ureters are not dilated.? However, there is asymmetric enhancing mural density in left side of the urinary bladder which is either related to cystitis or neoplasm.? Recommend urology consultation for this finding. 2. There is a colitis pattern in the rectosigmoid noted. 3. Small amount of free fluid in the pelvis 4. Radiologic Study #2: Attestation: I personally reviewed and interpreted this imaging study as follows: Imaging: CT Scan Radiologist's impression: IMPRESSION: No acute intracranial findings on this noninfused CT scan of the brain. Lab Data Lab results reviewed: Yes I reviewed the patient's lab results. HPI General Mode of arrival: ambulatory . Date/Time Provider Initiated Documentation: 04/08/23 11:20 . Limitations to Documentation: no limitations . Information obtained by: patient . History of Present Illness 62 year old F presents to the emergency department with the chief complaint of n/v, described as moderate, Patient started experiencing this day(s) (1) and it has been constant. No relieving factors improve symptom(s), No exacerbating factors reported . Patient notes weakness. Patient did receive the following treatments prior to arrival, none Related Data Home Medications Medication Instructions Recorded Confirmed fluoxetine 20 mg capsule 60 mg PO DAILY 12/13/21 03/12/23 meloxicam 15 mg tablet 15 mg PO DAILY 12/13/21 03/12/23 valacyclovir 500 mg tablet 500 mg PO DAILY 12/13/21 03/12/23 benzonatate 100 mg capsule 100 mg PO TID PRN cough #14 caps 10/12/22 10/12/22 losartan 100 mg tablet 100 mg PO DAILY 03/12/23 03/12/23 ondansetron 4 mg disintegrating 4 mg PO Q8H PRN nausea and 04/08/23 tablet vomiting #30 tabs Previous Rx's Medication Instructions Recorded benzonatate 100 mg capsule 100 mg PO TID PRN cough #14 caps 10/12/22 ondansetron 4 mg disintegrating 4 mg PO Q8H PRN nausea and 04/08/23 tablet vomiting #30 tabs Allergies Allergy/AdvReac Type Severity Reaction Status Date / Time fosaprepitant Allergy Unverified 03/12/23 16:09 iodine Allergy Unverified 03/12/23 16:09 General Stated Complaint: Nausea/Vomit/Diar MILA: 3 Review of Systems All systems reviewed & are unremarkable except as noted in HPI and below Constitutional Constitutional: Denies chills and Denies fever(s) Cardiovascular Cardiovascular: Denies chest pain and Denies dyspnea Respiratory Respiratory: Denies cough and Denies dyspnea Gastrointestinal Gastrointestinal: Reports abdominal pain and Reports vomiting Integumentary/Breasts Skin/Breast: Denies rash PFSH All Active Problems (Updated 04/08/23 @ 14:59 by Xavier Mcgee MD) Urinary tract infection (Acute) Atypical chest pain (Acute) HTN (hypertension) (Chronic) Hydronephrosis (Acute) Headache (Acute) Nausea & vomiting (Acute) Medical History Breast CA HTN (hypertension) Social History Smoking/Tobacco Use Status: Former Tobacco Use Smoking risk assessment performed?: Yes Drug use: Socially Substance use type: marijuana Do you feel safe at home: Yes Do you feel safe in your relationship?: Yes Course Vital Signs Vital signs: Vital Signs Temperature 36.7 C 04/08/23 10:34 Pulse 94 H 04/08/23 10:34 Respiratory Rate 18 04/08/23 10:34 Blood Pressure 146/107 H 04/08/23 10:34 Pulse Oximetry 97 04/08/23 10:34 Temperature 36.7 C 04/08/23 10:34 Pulse 94 H 04/08/23 10:34 Respiratory Rate 18 04/08/23 10:34 Respiratory Effort Normal 04/08/23 10:37 Blood Pressure 146/107 H 04/08/23 10:34 Blood Pressure Position Supine 04/08/23 10:34 Pulse Oximetry 97 04/08/23 10:34 Oxygen Delivery Method Room Air 04/08/23 10:34 Oxygen Flow Rate 0 04/08/23 10:34 Pain Level 4 04/08/23 10:34
[2023-04-08 11:43] LABS: Bilirubin Negative (Negative); Blood Moderate (Negative); Clarity Clear (Clear); Glucose Negative (Negative); Ketones Trace mg/dL (Negative); Leukocyte Esterase Small (Negative); Nitrite Negative (Negative); Specific Gravity 1.015 (1.005-1.025); Urobilinogen 0.2 mg/dL (Up to 0.2)
[2023-04-08 11:51] LABS: Bacteria Few HPF (Negative); C & S Indicated? No/Sq. Contamination; Casts 0-2 Hyaline LPF (Negative); Crystals Negative HPF (Negative); Epithelial Cells Many HPF (Negative); Mucus Trace (Negative)
[2023-04-08] MEDS: Ondansetron 4 MG/2 ML VIAL IVP (11:51)
[2023-04-08] MEDS: Ketorolac 15 MG/ML VIAL IVP (11:51)
[2023-04-08 11:54] LABS: Absolute Basophil Count 0.02 10^3/uL (0.0-0.2); Absolute Eosinophil Count 0.02 10^3/uL (0.0-0.7); Absolute Lymphocyte Count 0.98 10^3/uL (1.2-3.4); Absolute Monocyte Count 0.68 10^3/uL (0.1-0.8); Absolute Neutrophil Count 2.11 10^3/uL (1.2-6.7); Basophils % 0.5; Eosinophils % 0.5; HCT 41.1 % (36.0-46.0); HGB 14.2 g/dL (11.2-15.7); Lymphocytes % 25.7; MCH 30.8 pg (27.0-33.0); MCHC 34.5 % (32.0-36.0); MCV 89 fL (80-95); Monocytes % 17.8; Neutrophils % 55.5; Platelet Count 208 10^3/uL (130-400); RBC 4.61 10^6/uL (3.93-5.22); RDW 14.6 % (11.7-14.6); RDW-SD 47.9 fL; WBC 3.81 10^3/uL (4.4-10.8)
[2023-04-08] MEDS: Normal Saline - Diluent 50 ML VIAL IV (12:10)
[2023-04-08] MEDS: Omnipaque 350 MG/ML 100 ML BTL IJ (12:11)
[2023-04-08 12:13] LABS: Lipase 20 U/L (16-77); Magnesium 1.9 mg/dL (1.8-2.4); Troponin I < 50 ng/L (<or=60)
[2023-04-08 12:18] LABS: ALT 23 U/L (14-59); AST 19 U/L (15-37); Albumin 3.7 g/dL (3.4-5.0); Alkaline Phosphatase 53 U/L (46-116); Anion Gap 7.5 mmol/L (3-11); BUN 10 mg/dL (7-18); Bilirubin, Total 0.4 mg/dL (0.2-1.0); CO2 26.5 mmol/L (21.0-32.0); Calcium 8.9 mg/dL (8.5-10.1); Chloride 103 mmol/L (98-107); Glucose 107 mg/dL (74-106); Potassium 3.3 mmol/L (3.5-5.1); Sodium 137 mmol/L (136-145); TSH (W/Ref FT4) 1.19 uIU/mL (0.36-3.74); Total Protein 7.7 g/dL (6.4-8.2)
[2023-04-08] MEDS: diphenhydrAMINE 50 MG/ML VIAL 25 MG IVP (12:21)
[2023-04-08 12:49] LABS: COVID-19 PCR Negative (Negative); Influenza A PCR Negative (Negative); Influenza B PCR Negative (Negative); RSV PCR Negative (Negative)
[2023-04-08 12:50] LABS: Source Nasopharynx
[2023-04-08] MEDS: Normal Saline 1,000 ML 1000 ML IV (13:30)
--- NOTE | 2023-04-08 13:30 | DI.CT_ITS ---
Exam(s) CT ABDOMEN PELVIS W EXAM: CT ABDOMEN PELVIS W CLINICAL HISTORY: right lower abdominal pain, n/v. TECHNIQUE: Imaging Protocol: Axial computed tomography images with coronal and sagittal reformatted images were created and reviewed CONTRAST MATERIAL: Intravenous: Omnipaque-350 100cc Oral: None COMPARISON: CT CT RENAL COLIC WO from 12/13/[address] CHEST PE CTA from 03/12/2023 FINDINGS: VISUALIZED LUNG BASES: No nodules nor pleural effusions evident. ABDOMEN: There is no ascites in the upper abdomen but there is small amount of free fluid in the dependent asp ect of the pelvis. LIVER: Small benign cyst in the left hepatic lobe is unchanged. No new focal hepatic lesions identif ied. No dilated intrahepatic ducts. GALLBLADDER/BILIARY: No obvious gallbladder pathology. CBD is not dilated. PANCREAS: No evidence of pancreatic mass nor dilatation of the pancreatic duct. SPLEEN: Spleen is not enlarged. No obvious intrasplenic lesions. Splenic and portal veins are paten t. ADRENALS: There are no significant adrenal masses. KIDNEYS:Prominent right-sided hydronephrosis again noted and there is now significant hydronephrosis on the left side also now evident, more so than previous. Ureters below the UPJ are not dilated. Bu t there is some mild streaking around the UPJ, more so on the left side. ABDOMINAL AORTA: Abdominal aorta is not enlarged. LYMPH NODES:There is no retroperitoneal nor paraaortic adenopathy. ABDOMINAL WALL: No evidence of significant anterior abdominal wall nor inguinal hernia. GI: No evidence of bowel obstruction. There is a colitis pattern in the rectosigmoid evident. This does not appear to involve the upper le ft colon and transverse colon. PELVIS: GI: No evidence of appendicitis.No evidence of sigmoid diverticulitis. LYMPH NODES: There is no intrapelvic nor inguinal adenopathy. REPRODUCTIVE: Age-appropriate URINARY BLADDER: Abnormal mural thickening asymmetric on both sides but affecting the ureterovesical junctions.. Suspicious for malignancy. This finding was not evident on the prior November 2021 stud y. OSSEOUS: No fractures and no significant osseous lesions. IMPRESSION: 1. There is now prominent bilateral hydronephrosis above the ureteropelvic junctions bilaterally. Mi d-lower ureters are not dilated. However, there is asymmetric enhancing mural density in left side o f the urinary bladder which is either related to cystitis or neoplasm. Recommend urology consultatio n for this finding. 2. There is a colitis pattern in the rectosigmoid noted. 3. Small amount of free fluid in the pelvis 4. RADIATION DOSE DELIVERED: 1,123.83mGy.cm Total DLP DATA REPOSITORY: All CT scans at this facility are submitted to the National Radiology Data Registry (NRDR) Dose Index Registry (DIR) with the [employer] (A[employer]). RADIATION OPTIMIZATION: All CT scans at this facility use at least one of these dose optimization te chniques: automated exposure control; mA and/or kV adjustment per patient size (includes targeted exa ms where dose is matched to clinical indication); or iterative reconstruction.
--- NOTE | 2023-04-08 14:42 | NUR.NOTE ---
Nursing Note: REFERRAL FAXED TO UROLOGY , [facility]
[2023-04-08 15:07] VITALS: BP 156/100; PULSE 80; TEMP 36.9; O2SAT 98
[2023-04-09 10:48] LABS: Lyme Ab w Rflx to Lyme Confirm Negative (Negative)
[2023-04-11 21:58] LABS: Anaplasma phagocytophilum Negative (Negative); B. miyamotoi PCR Negative (Negative); Babesia divergens/MO-1 Negative (Negative); Babesia duncani Negative (Negative); Babesia microti Negative (Negative); Ehrlichia chaffeensis Negative (Negative); Ehrlichia ewingii/canis Negative (Negative); Ehrlichia muris eauclairensis Negative (Negative)
== END 2023-04-08 15:25 | disposition home or self-care (01) ==
PROVIDERS: Emergency Provider Emergency Medicine; PCP Nurse Practitioner Family
DX: N13.30 Unspecified hydronephrosis (principal); R51.9 Headache, unspecified; R11.2 Nausea with vomiting, unspecified
CPT/HCPCS: 36415; 80053; 83690; 87637; 87798; 96361; 96374; 96375; 99284; 70450; 74177; 81003; 81015; 83735; 84443; 84484; 85025; 86618; J1200; J1885; J2405; J3490

== ENCOUNTER 2023-04-08 21:19 | Emergency (ER) | payer MEDICAID, SELFPAY ==
[2023-04-08 21:24] VITALS: BP 172/111; PULSE 95; RESP 16; TEMP 36.8; O2SAT 99
[2023-04-08] MEDS: Ondansetron O.D.T. 4 MG TABEF 8 MG PO ×2 (22:05→23:30)
[2023-04-08 22:09] LABS: Abs Immature Grans 0.02 10^3/uL (0.0-0.06); Absolute Basophil Count 0.02 10^3/uL (0.0-0.2); Absolute Eosinophil Count 0.04 10^3/uL (0.0-0.7); Absolute Lymphocyte Count 0.97 10^3/uL (1.2-3.4); Absolute Monocyte Count 0.76 10^3/uL (0.1-0.8); Basophils % 0.4; Eosinophils % 0.7; HGB 14.7 g/dL (11.2-15.7); Immature Grans % 0.4; Lymphocytes % 17.9; MCH 30.4 pg (27.0-33.0); MCHC 34.2 % (32.0-36.0); MCV 89 fL (80-95); MPV 9.8 fL (8.0-11.0); Neutrophils % 66.6; Platelet Count 242 10^3/uL (130-400); RBC 4.84 10^6/uL (3.93-5.22); RDW 14.6 % (11.7-14.6); RDW-SD 47.8 fL; WBC 5.41 10^3/uL (4.4-10.8)
--- NOTE | 2023-04-08 22:11 | NUR.NOTE ---
Nursing Note: Pt keeps removing blood pressure cuff and monitor leads/refusing to place back on , monitor placed on standby at this time
[2023-04-08 22:20] LABS: ALT 25 U/L (14-59); AST 23 U/L (15-37); Albumin 3.9 g/dL (3.4-5.0); Alkaline Phosphatase 53 U/L (46-116); Anion Gap 8.8 mmol/L (3-11); BUN 12 mg/dL (7-18); Bilirubin, Total 0.3 mg/dL (0.2-1.0); CO2 25.2 mmol/L (21.0-32.0); CREATININE 1.1 mg/dL (0.55-1.02); Calcium 8.8 mg/dL (8.5-10.1); Chloride 104 mmol/L (98-107); Estimated GFR 56.81 (mL/min/1.73m2); Glucose 104 mg/dL (74-106); PTT Activated 26.4 sec (21.5-31.9); Potassium 3.6 mmol/L (3.5-5.1); Prothrombin Time 10.6 sec (9.3-11.0); Sodium 138 mmol/L (136-145); Total Protein 8.2 g/dL (6.4-8.2)
--- NOTE | 2023-04-08 23:20 | ED.GENADUL_ITS ---
Discharge Plan Disposition Patient Disposition: Home Condition: Good Discharge Details Clinical Impression: Gastritis Primary Care Provider: Lyubov Delgado ED Provider: Onelia Cardoza Home Meds and New Rx's Prescriptions: New pantoprazole [Protonix] 40 mg tablet,delayed release (DR/EC) 40 mg PO DAILY Qty: 30 0RF Continued benzonatate 100 mg capsule 100 mg PO TID PRN (Reason: cough) Qty: 14 0RF Patient Comments: not taking meloxicam 15 mg Tablet 15 mg PO DAILY valacyclovir 500 mg Tablet 500 mg PO DAILY fluoxetine 20 mg Capsule 60 mg PO DAILY ondansetron 4 mg tablet,disintegrating 4 mg PO Q8H PRN (Reason: nausea and vomiting) Qty: 30 0RF losartan 100 mg Tablet 100 mg PO DAILY Discharge Instructions Instructions: Gastritis (ED) Additional Instructions: Go to the pharmacy this AM to package pick up your acid blocking medicine and antinausea medicine. The stomach inflammation that is causing the bleeding can sometimes make you feel sick to your stomach. The acid blocking medicine should heal the inflammation and make this better. Please follow-up with Dr. Hendricks as vlad nietoly recommended. Call your primary care doc for a follow-up appointment within the next week. Return to ED for fever of 100.4 or above, vomiting large amounts of bright red blood, severe abdominal pain, any other concerns. HPI General Date/Time Provider Initiated Documentation: 04/08/23 21:47 . Related Data Home Medications Medication Instructions Recorded Confirmed fluoxetine 20 mg capsule 60 mg PO DAILY 12/13/21 03/12/23 meloxicam 15 mg tablet 15 mg PO DAILY 12/13/21 03/12/23 valacyclovir 500 mg tablet 500 mg PO DAILY 12/13/21 03/12/23 benzonatate 100 mg capsule 100 mg PO TID PRN cough #14 caps 10/12/22 10/12/22 losartan 100 mg tablet 100 mg PO DAILY 03/12/23 03/12/23 ondansetron 4 mg disintegrating 4 mg PO Q8H PRN nausea and 04/08/23 tablet vomiting #30 tabs pantoprazole 40 mg tablet,delayed 40 mg PO DAILY #30 tabs 04/08/23 release (Protonix) Previous Rx's Medication Instructions Recorded benzonatate 100 mg capsule 100 mg PO TID PRN cough #14 caps 10/12/22 ondansetron 4 mg disintegrating 4 mg PO Q8H PRN nausea and 04/08/23 tablet vomiting #30 tabs pantoprazole 40 mg tablet,delayed 40 mg PO DAILY #30 tabs 04/08/23 release (Protonix) Allergies Allergy/AdvReac Type Severity Reaction Status Date / Time fosaprepitant Allergy Unverified 03/12/23 16:09 iodine Allergy Unverified 03/12/23 16:09 General Stated Complaint: Nausea/Vomit/Diar MILA: 3 PFSH All Active Problems (Updated 04/08/23 @ 23:21 by Onelia Cardoza MD) Urinary tract infection (Acute) Atypical chest pain (Acute) HTN (hypertension) (Chronic) Hydronephrosis (Acute) Headache (Acute) Nausea & vomiting (Acute) Gastritis (Acute) Medical History Breast CA HTN (hypertension) Social History Smoking/Tobacco Use Status: Former Tobacco Use Smoking risk assessment performed?: Yes Drug use: Socially Substance use type: marijuana Do you feel safe at home: Yes Do you feel safe in your relationship?: Yes Course Vital Signs Vital signs: Vital Signs Temperature 36.8 C 04/08/23 21:24 Pulse 95 H 04/08/23 21:24 Respiratory Rate 16 04/08/23 21:24 Blood Pressure 172/111 H 04/08/23 21:24 Pulse Oximetry 99 04/08/23 21:24 Temperature 36.8 C 04/08/23 21:24 Temperature Source Oral 04/08/23 21:24 Pulse 95 H 04/08/23 21:24 Respiratory Rate 16 04/08/23 21:24 Respiratory Effort Normal 04/08/23 21:27 Blood Pressure 172/111 H 04/08/23 21:24 Pulse Oximetry 99 04/08/23 21:24 Oxygen Delivery Method Room Air 04/08/23 21:24 Oxygen Flow Rate 0 04/08/23 21:24 Pain Level 6 04/08/23 21:24 Lab/Test Results Lab/Test Results: Laboratory Tests Range/Units 04/08/23 04/08/23 04/08/23 21:30 21:30 21:30 WBC (4.4-10.8) 10^3/uL 5.41 RBC (3.93-5.22) 10^6/uL 4.84 Hgb (11.2-15.7) g/dL 14.7 Hct (36.0-46.0) % 43.0 MCV (80-95) fL 89 MCH (27.0-33.0) pg 30.4 MCHC (32.0-36.0) % 34.2 RDW (11.7-14.6) % 14.6 Plt Count (130-400) 10^3/uL 242 MPV (8.0-11.0) fL 9.8 Immature Gran % 0.4 Neutrophils % 66.6 Lymphocytes % 17.9 Monocytes % 14.0 Eosinophils % 0.7 Basophils % 0.4 Nucleated RBC % (0.0-0.3) % 0.0 Absolute Neutrophils (1.2-6.7) 10^3/uL 3.60 Absolute Lymphocytes (1.2-3.4) 10^3/uL 0.97 L Absolute Monocytes (0.1-0.8) 10^3/uL 0.76 Absolute Eosinophils (0.0-0.7) 10^3/uL 0.04 Absolute Basophils (0.0-0.2) 10^3/uL 0.02 PT (9.3-11.0) sec 10.6 INR (0.9-1.1) 1.0 APTT (21.5-31.9) sec 26.4 Sodium (136-145) mmol/L 138 Potassium (3.5-5.1) mmol/L 3.6 Chloride (98-107) mmol/L 104 Carbon Dioxide (21.0-32.0) mmol/L 25.2 Anion Gap (3-11) mmol/L 8.8 BUN (7-18) mg/dL 12 Creatinine (0.55-1.02) mg/dL 1.1 H Est GFR (CKD-EPI 2020) (mL/min/1.73m2) 56.81 Glucose (74-106) mg/dL 104 Calcium (8.5-10.1) mg/dL 8.8 Total Bilirubin (0.2-1.0) mg/dL 0.3 AST (15-37) U/L 23 ALT (14-59) U/L 25 Alkaline Phosphatase (46-116) U/L 53 Total Protein (6.4-8.2) g/dL 8.2 Albumin (3.4-5.0) g/dL 3.9 Patient ABO/Rh Antibody Screen Range/Units 04/08/23 22:04 WBC (4.4-10.8) 10^3/uL RBC (3.93-5.22) 10^6/uL Hgb (11.2-15.7) g/dL Hct (36.0-46.0) % MCV (80-95) fL MCH (27.0-33.0) pg MCHC (32.0-36.0) % RDW (11.7-14.6) % Plt Count (130-400) 10^3/uL MPV (8.0-11.0) fL Immature Gran % Neutrophils % Lymphocytes % Monocytes % Eosinophils % Basophils % Nucleated RBC % (0.0-0.3) % Absolute Neutrophils (1.2-6.7) 10^3/uL Absolute Lymphocytes (1.2-3.4) 10^3/uL Absolute Monocytes (0.1-0.8) 10^3/uL Absolute Eosinophils (0.0-0.7) 10^3/uL Absolute Basophils (0.0-0.2) 10^3/uL PT (9.3-11.0) sec INR (0.9-1.1) APTT (21.5-31.9) sec Sodium (136-145) mmol/L Potassium (3.5-5.1) mmol/L Chloride (98-107) mmol/L Carbon Dioxide (21.0-32.0) mmol/L Anion Gap (3-11) mmol/L BUN (7-18) mg/dL Creatinine (0.55-1.02) mg/dL Est GFR (CKD-EPI 2020) (mL/min/1.73m2) Glucose (74-106) mg/dL Calcium (8.5-10.1) mg/dL Total Bilirubin (0.2-1.0) mg/dL AST (15-37) U/L ALT (14-59) U/L Alkaline Phosphatase (46-116) U/L Total Protein (6.4-8.2) g/dL Albumin (3.4-5.0) g/dL Patient ABO/Rh A Positive Antibody Screen NEGATIVE
[2023-04-08] MEDS: Pantoprazole 40 MG TABCR PO (23:29)
[2023-04-08 23:42] VITALS: BP 165/105
--- NOTE | 2023-04-09 02:32 | ED.GENADUL_ITS ---
Discharge Plan Disposition Patient Disposition: Home Condition: Good Discharge Details Clinical Impression: Gastritis Primary Care Provider: Lyubov Delgado ED Provider: Onelia Cardoza Home Meds and New Rx's Prescriptions: New pantoprazole [Protonix] 40 mg tablet,delayed release (DR/EC) 40 mg PO DAILY Qty: 30 0RF Continued benzonatate 100 mg capsule 100 mg PO TID PRN (Reason: cough) Qty: 14 0RF Patient Comments: not taking meloxicam 15 mg Tablet 15 mg PO DAILY valacyclovir 500 mg Tablet 500 mg PO DAILY fluoxetine 20 mg Capsule 60 mg PO DAILY ondansetron 4 mg tablet,disintegrating 4 mg PO Q8H PRN (Reason: nausea and vomiting) Qty: 30 0RF losartan 100 mg Tablet 100 mg PO DAILY Discharge Instructions Instructions: Gastritis (ED) Additional Instructions: 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 The stomach inflammation that is causing the bleeding can sometimes make you feel sick to your stomach. The acid blocking medicine should heal the inflammation and make this better. Please follow-up with Dr. Hendricks as vlad hernandez recommended. Call your primary care doc for a follow-up appointment within the next week. Return to ED for fever of 100.4 or above, vomiting large amounts of bright red blood, severe abdominal pain, any other concerns. Discharge Data Discharge Date/Time-TO BE ENTERED AT DEPARTURE: 04/08/23 23:39 Medical Decision Making I did talk to the patient about gastritis and esophagitis and then used the simpler terms for these. She told me that she understood the medical terms and that I did not need to be condescending to her. I told her that I typically try to say the medical term and then the simpler explanation so that I am not talking up or down to people. I asked her if she was on anticoagulation. She said that maybe she should leave. I explained to her that I was trying to take the best possible care of her and needed to understand some additional history. She said she was not going to take any other medicine even after I explained to her that gastritis could be causing her bleeding. She finally agreed to take a PPI and we talked about speaking to her doctor about possible endoscopy. She has not been taking her blood pressure medication in spite of the fact that she has it at home. We talked about this as well and she promises to discuss this further with her doctor. Has an appointment on Friday. 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 I explained to her that I wrote instructions down on her paperwork and she can refer to this. Patient states she is sick of seeing doctors and overall seemed unhappy with her health. She felt well on discharge and seemed happier with her care. Medical Records Medical records reviewed: Yes I reviewed the patient's medical records. Lab Data Lab results reviewed: Yes I reviewed the patient's lab results. Lab results narrative: Unremarkable HPI General Date/Time Provider Initiated Documentation: 04/08/23 21:47 . HPI Narrative: This 62-year-old female patient was seen earlier with a chief complaint of right lower quadrant pain and headache. Patient also stated she had some nausea and vomiting in addition to heat. She had extensive work-up including a head abdomen and pelvis CT. The head CT was negative. CT abdomen and pelvis showed bilateral hydronephrosis. Reportedly the patient's had chronic right-sided hydronephrosis in the past was new. The case was discussed with Dr. Hendricks outpatient testing and follow-up ordered for the patient. The patient had blood work was essentially unremarkable. 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 She returns tonight with an episode of vomiting which she says was a large amount of blood. The patient actually describes a fairly small amount of blood. She has no fever or belly pain at this time. There is no chest pain or shortness of breath. Her headache is resolved. She is a difficult historian and gets angry when you ask her questions. She has no nausea at this time though was given 8 mg of Zofran by the midlevel provider on arrival in the ED. Related Data Home Medications Medication Instructions Recorded Confirmed fluoxetine 20 mg capsule 60 mg PO DAILY 12/13/21 03/12/23 meloxicam 15 mg tablet 15 mg PO DAILY 12/13/21 03/12/23 valacyclovir 500 mg tablet 500 mg PO DAILY 12/13/21 03/12/23 benzonatate 100 mg capsule 100 mg PO TID PRN cough #14 caps 10/12/22 10/12/22 losartan 100 mg tablet 100 mg PO DAILY 03/12/23 03/12/23 ondansetron 4 mg disintegrating 4 mg PO Q8H PRN nausea and 04/08/23 tablet vomiting #30 tabs pantoprazole 40 mg tablet,delayed 40 mg PO DAILY #30 tabs 04/08/23 release (Protonix) Previous Rx's Medication Instructions Recorded benzonatate 100 mg capsule 100 mg PO TID PRN cough #14 caps 10/12/22 ondansetron 4 mg disintegrating 4 mg PO Q8H PRN nausea and 04/08/23 tablet vomiting #30 tabs pantoprazole 40 mg tablet,delayed 40 mg PO DAILY #30 tabs 04/08/23 release (Protonix) Allergies Allergy/AdvReac Type Severity Reaction Status Date / Time fosaprepitant Allergy Unverified 03/12/23 16:09 iodine Allergy Unverified 03/12/23 16:09 General Stated Complaint: Nausea/Vomit/Diar MILA: 3 Review of Systems Constitutional Constitutional: Denies chills, Denies fever(s), Denies headache(s) and Denies weakness Eyes Eyes: Denies diplopia and Reports other (no redness) ENT Ears, Nose, Mouth, and Throat: Denies otalgia, Denies headache(s), Denies nasal congestion, Denies nasal discharge, Denies neck pain and Denies sore throat Cardiovascular Cardiovascular: Denies chest pain, Denies palpitations and Denies dyspnea Respiratory Respiratory: Denies cough and Denies dyspnea Gastrointestinal Gastrointestinal: Reports abdominal pain (earlier), Denies diarrhea, Reports nausea, Reports vomiting and Reports hematemesis Genitourinary Genitourinary: Denies dysuria Musculoskeletal Musculoskeletal: Denies myalgias, Denies muscle weakness, Denies neck pain, Denies numbness and Reports other (edema) Integumentary/Breasts Skin/Breast: Denies change in pigmentation and Denies rash Neurologic Neurologic: Denies headache(s), Denies numbness and Denies weakness Endocrine Endocrine: Denies palpitations PFSH All Active Problems Urinary tract infection (Acute) Atypical chest pain (Acute) HTN (hypertension) (Chronic) Hydronephrosis (Acute) Headache (Acute) Nausea & vomiting (Acute) Gastritis (Acute) Medical History Breast CA HTN (hypertension) Social History Smoking/Tobacco Use Status: Former Tobacco Use Smoking risk assessment performed?: Yes Drug use: Socially Substance use type: marijuana Do you feel safe at home: Yes Do you feel safe in your relationship?: Yes Exam Const General: no acute distress, well developed, well groomed and not in acute distress Nutritional Appearance: well nourished Orientation: alert and oriented x3 HENMT Head: normocephalic and atraumatic Ears: external ears normal Mouth: oropharynx normal and moist mucous membranes Throat: posterior oropharynx normal Eyes Conjunctivae: conjunctivae normal Neck Neck: full ROM and supple Chest Chest: normal inspection of the chest Resp Effort & Inspection: normal respiratory effort Auscultation: clear to auscultation bilaterally Cardio Rate: regular rate Rhythm: regular rhythm Heart Sounds: no murmurs and no rubs GI Inspection: normal to inspection Palpation: soft, tender (Mild epigastric tenderness to palpation that was not reproducible) and other (non distended) Auscultation: normal bowel sounds Skin General skin exam: no rashes or lesions noted and other (pink, warm, dry) Neuro General: patient alert, patient awake and patient oriented x3 Speech: speech normal Motor: other (BERRY) Sensory Exam: no sensory deficits noted Extrem General: normal to inspection, full ROM and pedal edema present Psych Mental Status: mental status grossly normal Speech and Movement: speech and movement normal Affect: normal affect Course Vital Signs Vital signs: Vital Signs Temperature 36.8 C 04/08/23 21:24 Pulse 95 H 04/08/23 21:24 Respiratory Rate 16 04/08/23 21:24 Blood Pressure 172/111 H 04/08/23 21:24 Pulse Oximetry 99 04/08/23 21:24 Temperature 36.8 C 04/08/23 21:24 Temperature Source Oral 04/08/23 21:24 Pulse 95 H 04/08/23 21:24 Respiratory Rate 16 04/08/23 21:24 Respiratory Effort Normal 04/08/23 21:27 Blood Pressure 165/105 H 04/08/23 23:42 Pulse Oximetry 99 04/08/23 21:24 Oxygen Delivery Method Room Air 04/08/23 21:24 Oxygen Flow Rate 0 06/13/23 21:24 Pain Level 6 04/08/23 21:24 Lab/Test Results Lab/Test Results: Laboratory Tests Range/Units 04/08/23 04/08/23 04/08/23 21:30 21:30 21:30 WBC (4.4-10.8) 10^3/uL 5.41 RBC (3.93-5.22) 10^6/uL 4.84 Hgb (11.2-15.7) g/dL 14.7 Hct (36.0-46.0) % 43.0 MCV (80-95) fL 89 MCH (27.0-33.0) pg 30.4 MCHC (32.0-36.0) % 34.2 RDW (11.7-14.6) % 14.6 Plt Count (130-400) 10^3/uL 242 MPV (8.0-11.0) fL 9.8 Immature Gran % 0.4 Neutrophils % 66.6 Lymphocytes % 17.9 Monocytes % 14.0 Eosinophils % 0.7 Basophils % 0.4 Nucleated RBC % (0.0-0.3) % 0.0 Absolute Neutrophils (1.2-6.7) 10^3/uL 3.60 Absolute Lymphocytes (1.2-3.4) 10^3/uL 0.97 L Absolute Monocytes (0.1-0.8) 10^3/uL 0.76 Absolute Eosinophils (0.0-0.7) 10^3/uL 0.04 Absolute Basophils (0.0-0.2) 10^3/uL 0.02 PT (9.3-11.0) sec 10.6 INR (0.9-1.1) 1.0 APTT (21.5-31.9) sec 26.4 Sodium (136-145) mmol/L 138 Potassium (3.5-5.1) mmol/L 3.6 Chloride (98-107) mmol/L 104 Carbon Dioxide (21.0-32.0) mmol/L 25.2 Anion Gap (3-11) mmol/L 8.8 BUN (7-18) mg/dL 12 Creatinine (0.55-1.02) mg/dL 1.1 H Est GFR (CKD-EPI 2020) (mL/min/1.73m2) 56.81 Glucose (74-106) mg/dL 104 Calcium (8.5-10.1) mg/dL 8.8 Total Bilirubin (0.2-1.0) mg/dL 0.3 AST (15-37) U/L 23 ALT (14-59) U/L 25 Alkaline Phosphatase (46-116) U/L 53 Total Protein (6.4-8.2) g/dL 8.2 Albumin (3.4-5.0) g/dL 3.9 Patient ABO/Rh Antibody Screen Range/Units 04/08/23 22:04 WBC (4.4-10.8) 10^3/uL RBC (3.93-5.22) 10^6/uL Hgb (11.2-15.7) g/dL Hct (36.0-46.0) % MCV (80-95) fL MCH (27.0-33.0) pg MCHC (32.0-36.0) % RDW (11.7-14.6) % Plt Count (130-400) 10^3/uL MPV (8.0-11.0) fL Immature Gran % Neutrophils % Lymphocytes % Monocytes % Eosinophils % Basophils % Nucleated RBC % (0.0-0.3) % Absolute Neutrophils (1.2-6.7) 10^3/uL Absolute Lymphocytes (1.2-3.4) 10^3/uL Absolute Monocytes (0.1-0.8) 10^3/uL Absolute Eosinophils (0.0-0.7) 10^3/uL Absolute Basophils (0.0-0.2) 10^3/uL PT (9.3-11.0) sec INR (0.9-1.1) APTT (21.5-31.9) sec Sodium (136-145) mmol/L Potassium (3.5-5.1) mmol/L Chloride (98-107) mmol/L Carbon Dioxide (21.0-32.0) mmol/L Anion Gap (3-11) mmol/L BUN (7-18) mg/dL Creatinine (0.55-1.02) mg/dL Est GFR (CKD-EPI 2020) (mL/min/1.73m2) Glucose (74-106) mg/dL Calcium (8.5-10.1) mg/dL Total Bilirubin (0.2-1.0) mg/dL AST (15-37) U/L ALT (14-59) U/L Alkaline Phosphatase (46-116) U/L Total Protein (6.4-8.2) g/dL Albumin (3.4-5.0) g/dL Patient ABO/Rh A Positive Antibody Screen NEGATIVE
== END 2023-04-08 23:39 | disposition home or self-care (01) ==
PROVIDERS: Nurse Practitioner Family; Emergency Provider Emergency Medicine; PCP Nurse Practitioner Family
DX: R11.2 Nausea with vomiting, unspecified (principal); R10.31 Right lower quadrant pain; R51.9 Headache, unspecified
CPT/HCPCS: 36415; 80053; 86850; 86900; 86901; 99283; 85025; 85610; 85730; 99284

== ENCOUNTER 2023-04-11 00:45 | Outpatient (CLI) | payer MEDICAID, SELFPAY ==
--- NOTE | 2023-04-11 07:30 | DI.NM_ITS ---
Exam(s) NM DTPA RENOGRAM W LASIX CLINICAL HISTORY: ? obstruction,d/t hydro increasing,N13.30. COMPARISON: CT CT RENAL COLIC WO from 12/13/[address] CHEST PE CTA from 03/12/[address] ABDOMEN PELVIS W from 04/08/2023 EXAMINATION: Dose: 11 mCi Tc-99m DTPA Images: Immediately for 1 minute followed by dynamic for 30 minutes. Intravenous 27mg Lasix was administered 12 minutes post radiopharmaceutical injection. FINDINGS: Flow phase images reveal relatively symmetrical arterial uptake in the kidneys. Both kidneys exhibit normal size. Computer generated time activity curves somewhat asymmetric uptake curves. On the right side there i s an obstructive upward slope time activity curve evident. Following IV Lasix administration there i s change of the right kidney slope to relatively shallow downward slope. Moody of the opposite-left kidney is somewhat more shallow and less responsive to intravenous Lasix a dministration. IMPRESSION: 1. Right kidney curves reveal what is probably moderate UPJ obstruction pattern. 2. Left kidney time activity curve reveals somewhat less response to intravenous Lasix administratio n. I note that on the CT scan of 12/13/2021 there was unilateral right-sided hydronephrosis to the UPJ l evel and no obstruction on the opposite-left side.
[2023-04-11] MEDS: Furosemide 40 MG/4 ML VIAL 27 MG IVP (11:18)
== END 2023-04-11 01:05 ==
LOC: DI 00:46
PROVIDERS: PCP Nurse Practitioner Family; Visit Provider Nurse Practitioner Gerontology
DX: N13.2 Hydronephrosis with renal and ureteral calculous obstruction (principal); N32.89 Other specified disorders of bladder
CPT/HCPCS: 78708; J1940

== ENCOUNTER 2023-04-15 13:38 | Outpatient (REF) | payer MEDICAID, SELFPAY ==
[2023-04-15 14:36] LABS: Bilirubin Negative (Negative); Blood Trace-lysed (Negative); Clarity Clear (Clear); Glucose Negative (Negative); Ketones Negative (Negative); Leukocyte Esterase Large (Negative); Nitrite Negative (Negative); Specific Gravity 1.015 (1.005-1.025); Urobilinogen 0.2 mg/dL (Up to 0.2)
[2023-04-15 14:53] LABS: Bacteria Negative HPF (Negative); C & S Indicated? C&S Done As Ordered; Casts Negative LPF (Negative); Crystals Negative HPF (Negative); Epithelial Cells Few HPF (Negative); Mucus Negative (Negative); RBC 0-2 HPF (0-2)
== END 2023-04-15 13:39 | disposition home or self-care (01) ==
LOC: LBN 13:38
PROVIDERS: PCP Nurse Practitioner Family; Visit Provider Nurse Practitioner Gerontology
DX: R30.0 Dysuria (principal)
CPT/HCPCS: 81003; 81015; 87086

== ENCOUNTER 2023-04-21 01:53 | Emergency (ER) | payer MEDICAID, SELFPAY ==
--- NOTE | 2023-04-21 01:45 | RT.EKG_ITS ---
APPROVED REPORT Exam: Resting ECG Reason for Exam: sob Patient Location: E HR:76 bpm ECG Measurements Heart Rate 76 AXIS DE 148 P 69 QRSd 86 QRS 12 QT 389 T 57 QTc 439 Conclusion Sinus rhythm...normal P axis, V-rate 60- 99
[2023-04-21 01:48] VITALS: BP 161/107; PULSE 80; RESP 16; TEMP 37.1; O2SAT 94
--- NOTE | 2023-04-21 02:00 | DI.RAD_ITS ---
Exam(s) XR FEMUR LT EXAM: XR FEMUR LT CLINICAL HISTORY: leg pain. TECHNIQUE: 2D digital imaging was performed of the left femur. Four images were obtained. AP and lat eral views were obtained. COMPARISON: No exams were available for comparison FINDINGS: BONES: No acute fracture is present. No bony destructive lesion is seen. There are degenerative garces es seen of the left hip and left knee characterized by joint space narrowing and bony hypertrophy. SOFT TISSUE: Normal. IMPRESSION: Degenerative changes of the left hip and left knee. DATA REPOSITORY: RADIATION DOSE DELIVERED:
--- NOTE | 2023-04-21 02:00 | DI.RAD_ITS ---
Exam(s) XR FEMUR RT EXAM: XR FEMUR RT CLINICAL HISTORY: leg pain. TECHNIQUE: 2D digital imaging was performed of the right femur. Four images were obtained. AP and l ateral views were obtained. COMPARISON: No exams were available for comparison FINDINGS: BONES: No acute fracture is present. No bony destructive lesion is seen. There are degenerative garces es seen in the right hip and right knee characterized by joint space narrowing and osteophyte. There is a well-circumscribed bony density adjacent to the right acetabulum. SOFT TISSUE: Normal. IMPRESSION: Degenerative changes of the right knee and hip. DATA REPOSITORY: RADIATION DOSE DELIVERED:
--- NOTE | 2023-04-21 02:00 | DI.CT_ITS ---
Exam(s) CT HEAD CERVICAL SPINE WO EXAM: CT HEAD CERVICAL SPINE WO CLINICAL HISTORY: trauma. TECHNIQUE: Imaging Protocol: Axial computed tomography images with coronal and sagittal reformatted images were created and reviewed COMPARISON: CT CT HEAD WO from 04/08/2023 FINDINGS: CT Head: Ventricles and Extra axial spaces: Normal in size and morphology for the patient's age. Hemorrhage: None. Cerebral parenchyma: There is no evidence of an acute territorial infarct. There are areas of decrea sed attenuation in the white matter suggesting small vessel ischemic disease. Midline shift: None. Brainstem/Cerebellum: Normal. Calvarium: Normal. Visualized Paranasal sinuses/Mastoids: There is mucosal thickening in the sphenoid sinuses. The juan antonio ining visualized paranasal sinuses are clear as are the mastoid air cells. Soft Tissues: Unremarkable. CT Cervical Spine: Bones: No acute fracture or subluxation. Age-appropriate degenerative changes are seen in the cervica l spine. There is a hemangioma of the C7 vertebral body. Soft Tissues: Unremarkable. Lung Apices: Clear. IMPRESSION: 1. No acute intracranial process. 2. No acute fracture or subluxation in the cervical spine. RADIATION DOSE DELIVERED: 1,265.04mGy.cm Total DLP DATA REPOSITORY: All CT scans at this facility are submitted to the National Radiology Data Registry (NRDR) Dose Index Registry (DIR) with the [employer] (A[employer]). RADIATION OPTIMIZATION: All CT scans at this facility use at least one of these dose optimization te chniques: automated exposure control; mA and/or kV adjustment per patient size (includes targeted exa ms where dose is matched to clinical indication); or iterative reconstruction.
--- NOTE | 2023-04-21 02:08 | ED.GENADUL_ITS ---
Discharge Plan Disposition Patient Disposition: Home Discharge Details Clinical Impression: Fall, Weakness, Concussion Primary Care Provider: Lyubov Delgado ED Provider: Bronson Mcgee Home Meds and New Rx's Prescriptions: Continued benzonatate 100 mg capsule 100 mg PO TID PRN (Reason: cough) Qty: 14 0RF Patient Comments: not taking meloxicam 15 mg Tablet 15 mg PO DAILY valacyclovir 500 mg Tablet 500 mg PO DAILY fluoxetine 20 mg Capsule 60 mg PO DAILY ondansetron 4 mg tablet,disintegrating 4 mg PO Q8H PRN (Reason: nausea and vomiting) Qty: 30 0RF pantoprazole [Protonix] 40 mg tablet,delayed release (DR/EC) 40 mg PO DAILY Qty: 30 0RF potassium chloride 20 mEq tablet,ER particles/crystals 20 meq PO DAILY losartan 100 mg Tablet 100 mg PO DAILY Discharge Instructions Instructions: Concussion (ED), Weakness (ED), Fall Prevention (ED) Additional Instructions: You were seen in the emergency department after a few falls at home due to weakness. We performed labs and CAT scans as well as some x-rays that were unremarkable. We were able to ambulate here. We agreed to be safe for you to go home. Return for any other worsening symptoms such as headache, intractable nausea or vomiting, or worsening weakness.. Follow-up with your primary care doctor. You still have hydronephrosis seen on your CAT scan and you should simply follow-up with the urology team concerning this finding. Referrals: Blaine Hendricks MD [ [facility] STAFF PHYSICIAN] - 1 week Medical Decision Making This is a 62-year-old female who presents with falls. Did fall and hit her head so we will get CT head and cervical spine to rule out hematoma or fracture. She has some low back pain and will get CT abdomen pelvis which will include lumbar spine to evaluate for bony injury or other intra-abdominal pathology referring to the back though I do think that these are less likely. Suspect she likely has the back pain from her multiple falls today. She does not have any other obvious injuries on exam but is reporting bilateral hip pain so we will get plain films of the femurs as well to evaluate for fracture. No clear cause for the patient's weakness on my examination. She does not have any fever so I doubt infection as the cause especially in the absence of any focal signs of infection on examination. We will get broad labs to look for electrolyte or metabolic derangements that could be contributing to weakness. Doubt ACS or arrhythmia but will check EKG and cardiac enzymes. It does sound like the patient's weakness has been progressively getting worse over months and I suspect some of this may be deconditioning. We will perform testing as above and reevaluate. 0400 Imaging unremarkable. Labs grossly unremarkable. Still has some hydronephrosis bilaterally but needs to follow-up with urology and renal function here is normal and she has voided without difficulty. She is ambulatory here and feeling better. Feels safe to go home. Will discharge with return precautions. Medical Records Medical records reviewed: Yes I reviewed the patient's medical records. Imaging Data Radiologic Study: Imaging: CT Scan (head and cervical spine) Radiologist's impression: Unremarkable Radiologic Study #2: Attestation: I personally reviewed and interpreted this imaging study as follows: Imaging: CT Scan (chest/abd/pelvis) Radiologist's impression: Persistent hydronephrosis. Otherwise unremarkable Radiologic Study #3: Imaging: X-Ray (bilateral femurs) Radiologist's impression: Unremarkable Lab Data Lab results reviewed: Yes I reviewed the patient's lab results. Labs: Unremarkable ECG Data Attestation: I personally reviewed and interpreted this ECG (s) as follows: Interpretation: Normal sinus rhythm with normal rate and axis. Normal AR interval. No ST or T wave changes. HPI General Mode of arrival: EMS . Date/Time Provider Initiated Documentation: 04/21/23 02:01 . Limitations to Documentation: no limitations . Information obtained by: patient and EMS . HPI Narrative: 62-year-old female presents after multiple falls at home. She tells me she has had chronically worsening weakness in her bilateral lower legs. This has led to about 5 falls today. No syncope or fainting episodes. She says she hit her head and she also has some low back pain. She says that she hit her head and now she has been having headaches all day and is also having some visual disturbances where she occasionally sees a halo and has some sensitivity to light. Denies any other injuries from the falls. Denies any other symptoms. Related Data Home Medications Medication Instructions Recorded Confirmed fluoxetine 20 mg capsule 60 mg PO DAILY 12/13/21 04/21/23 meloxicam 15 mg tablet 15 mg PO DAILY 12/13/21 04/21/23 valacyclovir 500 mg tablet 500 mg PO DAILY 12/13/21 04/21/23 benzonatate 100 mg capsule 100 mg PO TID PRN cough #14 caps 10/12/22 04/21/23 losartan 100 mg tablet 100 mg PO DAILY 03/12/23 04/21/23 ondansetron 4 mg disintegrating 4 mg PO Q8H PRN nausea and 04/08/23 04/21/23 tablet vomiting #30 tabs pantoprazole 40 mg tablet,delayed 40 mg PO DAILY #30 tabs 04/08/23 04/21/23 release (Protonix) potassium chloride 20 mEq 20 meq PO DAILY 04/21/23 04/21/23 tablet,extended release(part/cryst) Previous Rx's Medication Instructions Recorded benzonatate 100 mg capsule 100 mg PO TID PRN cough #14 caps 10/12/22 ondansetron 4 mg disintegrating 4 mg PO Q8H PRN nausea and 04/08/23 tablet vomiting #30 tabs pantoprazole 40 mg tablet,delayed 40 mg PO DAILY #30 tabs 04/08/23 release (Protonix) Allergies Allergy/AdvReac Type Severity Reaction Status Date / Time fosaprepitant Allergy Unverified 04/15/23 11:09 iodine Allergy Unverified 04/15/23 11:09 General Stated Complaint: GenMedical MILA: 3 Review of Systems Constitutional Constitutional: Denies chills, Denies fever(s), Reports headache(s) and Reports weakness Eyes Eyes: Denies change in vision ENT Ears, Nose, Mouth, and Throat: Reports headache(s) and Denies odynophagia Cardiovascular Cardiovascular: Denies chest pain and Denies dyspnea Respiratory Respiratory: Denies dyspnea Gastrointestinal Gastrointestinal: Denies abdominal pain, Denies diarrhea, Denies nausea, Denies odynophagia and Denies vomiting Genitourinary Genitourinary: Denies dysuria Musculoskeletal Musculoskeletal: Reports back pain and Denies myalgias Integumentary/Breasts Skin/Breast: Denies changing lesions Neurologic Neurologic: Denies behavioral changes, Reports headache(s) and Reports weakness Psychiatric Psychiatric: Denies behavioral changes Endocrine Endocrine: Denies heat intolerance Hematologic/Lymphatic Hematologic/Lymphatic: Denies lymphadenopathy PFSH All Active Problems (Updated 04/21/23 @ 03:56 by Bronson Mcgee MD) Hydronephrosis (Acute) Headache (Acute) Nausea & vomiting (Acute) Gastritis (Acute) Fall (Acute) Weakness (Acute) Concussion (Acute) Medical History Breast CA left HTN (hypertension) Memory problem per patient Surgical History H/O mastectomy Bilat History of shoulder surgery S/P hernia repair Social History Smoking/Tobacco Use Status: Former Tobacco Use Smoking risk assessment performed?: Yes Drug use: Socially Substance use type: marijuana Details: MARIJUANA TONIGHT Do you feel safe at home: Yes Do you feel safe in your relationship?: Yes Exam Const General: cooperative Nutritional Appearance: average body habitus Orientation: alert, awake and oriented x3 HENMT Head: normal to inspection, no palpable skull fracture, normocephalic and atraumatic Ears: external ears normal Mouth: moist mucous membranes Eyes Pupils: PERRL EOM: EOM intact bilaterally and No nystagmus Neck Neck: normal visual inspection, full ROM, trachea midline, not supple, nontender and no tracheal deviation Chest Chest: normal inspection of the chest, normal palpation of entire chest wall, no crepitus and no tenderness Resp Auscultation: clear to auscultation bilaterally Cardio Rate: regular rate Rhythm: regular rhythm GI Inspection: normal to inspection Palpation: soft, no guarding, not rigid and nontender Back/Spine/Pelvis Back: No no CVA tenderness Other: Tenderness in the lumbar spine but no thoracic spine tenderness. No deformities or step-offs. Skin General skin exam: no rashes or lesions noted Neuro General: patient alert, patient awake and patient oriented x3 Cranial Nerves: CN's II-XI intact bilaterally, PERRL and no nystagmus Cognition: normal cognition Motor: muscle tone normal throughout and strength 5/5 throughout Sensory Exam: no sensory deficits noted Extrem General: normal to inspection Other: Tenderness to bilateral hips and femurs. Full range of motion in bilateral lower extremities. Generalized weakness but strength is still intact in all 4 extremities. 2+ DP and PT pulses. Good circulation in all 4 extremities. No signs of any injuries or tenderness to the upper extremities. Course Vital Signs Vital signs: Vital Signs Temperature 37.1 C 04/21/23 01:48 Pulse 80 04/21/23 01:48 Respiratory Rate 16 04/21/23 01:48 Blood Pressure 161/107 H 04/21/23 01:48 Pulse Oximetry 94 04/21/23 01:48 Temperature 37.1 C 04/21/23 01:48 Temperature Source Oral 04/21/23 01:48 Pulse 80 04/21/23 01:48 Respiratory Rate 16 04/21/23 01:48 Respiratory Effort Normal 04/21/23 01:48 Blood Pressure 161/107 H 04/21/23 01:48 Blood Pressure Position Supine 04/21/23 01:48 Pulse Oximetry 94 04/21/23 01:48 Oxygen Delivery Method Room Air 04/21/23 01:48 Oxygen Flow Rate 0 04/21/23 01:48 Pain Level 5 04/21/23 01:48
[2023-04-21] MEDS: Normal Saline 1,000 ML 1000 ML IV (02:14)
--- NOTE | 2023-04-21 02:15 | DI.CT_ITS ---
Exam(s) CT CHEST/ABD/PEL WO CT THORACIC LUMBAR SPINE REC EXAM: CT CHEST/ABD/PEL WO and CT thoracic and lumbar spine recons CLINICAL HISTORY: trauma TECHNIQUE: Imaging Protocol: Axial computed tomography images with coronal and sagittal reformatted images were created and reviewed COMPARISON: CT CT CHEST PE CTA from 12/13/[address] CHEST PE CTA from 03/12/[address] ABDOMEN PELVIS W from 04/08/[address] THORACIC LUMBAR SPINE REC from 04/21/2023 FINDINGS: Examination limited by lack of IV contrast material. CHEST: Tracheobronchial tree: Patent where visualized. Pulmonary parenchyma: There is a 4 mm triangular shaped noncalcified nodule associated with the right minor fissure. No focal consolidating infiltrates are present. Small unchanged peripheral infiltra sakina are seen in the anterior aspect of the left upper lobe and the medial aspect of the left lower lo be. No new infiltrates are present. Mediastinum and Darshana: No dominant adenopathy or fluid collection. The esophagus is unremarkable. Ther e is a small hiatal hernia. Thyroid gland: Unremarkable. Pleura: No effusion or pneumothorax. Heart: The heart is not dilated. Moderate coronary artery calcification is present particularly in th e distribution of the LAD. No pericardial effusion. Aorta: Thoracic aorta non-dilated. Lymph nodes: Within normal limits. Bones:Within normal limits for the patient's age. Postsurgical changes are seen in the left humeral head. There are no displaced rib fractures. Soft tissues: Unremarkable. Thoracic spine CT recons: Age-appropriate degenerative changes are seen in the thoracic spine. No ac [place] fractures or subluxations are present. ABDOMEN: Liver: Normal density. Stable hepatic cyst. Gallbladder and Biliary Tract: No radiodense calculus or dilation. Pancreas: Normal density, no abnormal calcifications or inflammatory process. Spleen: Normal. Adrenals: No masses seen. Kidneys: Normal size, contour and axis. No radiodense stones. There is persistent stable dilatation of both renal pelves. No masses seen. Abdominal Aorta: Abdominal portion non-dilated. Bowel: There is no evidence of bowel obstruction. There is mild thickening of the wall of the sigmoi d colon. No definite pericolonic inflammatory stranding is seen. There is a normal appendix. Peritoneal Cavity: Trace free fluid in the pelvis. No free air. Lymph Nodes: Within normal limits. Bones: Within normal limits for the patient's age. Soft Tissues: Unremarkable. PELVIS: Bladder: Symmetric distention, stable wall thickening. Reproductive Organs: Unremarkable as visualized. Lymph Nodes: Within normal limits. Bones: Within normal limits for the patient's age. Lumbar spine recons: Age-appropriate degenerative changes are present. No acute fractures or subluxa tions are present. IMPRESSION: 1. No acute pulmonary process. 2. Stable perifissural nodule. Optional CT scan in 12 months may be obtained for for re-evaluation. 3. No acute traumatic abdominal pelvic organ injury. 4. Mild thickening of the wall of the sigmoid colon which may represent colitis. 5. Stable findings in the abdomen and pelvis. 6. No acute fracture or subluxation in the thoracic or lumbar spines. RADIATION DOSE DELIVERED: 1235.76 mGy.cm Total DLP 1235.76 mGy.cm Total DLP DATA REPOSITORY: All CT scans at this facility are submitted to the National Radiology Data Registry (NRDR) Dose Index Registry (DIR) with the [employer] (ACR). RADIATION OPTIMIZATION: All CT scans at this facility use at least one of these dose optimization te chniques: automated exposure control; mA and/or kV adjustment per patient size (includes targeted exa ms where dose is matched to clinical indication); or iterative reconstruction.
[2023-04-21 02:54] LABS: Abs Immature Grans 0.03 10^3/uL (0.0-0.06); Absolute Basophil Count 0.03 10^3/uL (0.0-0.2); Absolute Eosinophil Count 0.07 10^3/uL (0.0-0.7); Absolute Lymphocyte Count 1.78 10^3/uL (1.2-3.4); Absolute Monocyte Count 0.76 10^3/uL (0.1-0.8); Basophils % 0.4; Eosinophils % 0.8; HCT 38.1 % (36.0-46.0); HGB 12.8 g/dL (11.2-15.7); Immature Grans % 0.4; MCH 30.3 pg (27.0-33.0); MCHC 33.6 % (32.0-36.0); MCV 90 fL (80-95); MPV 9.6 fL (8.0-11.0); Neutrophils % 68.4; Platelet Count 238 10^3/uL (130-400); RBC 4.22 10^6/uL (3.93-5.22); RDW 14.2 % (11.7-14.6); RDW-SD 46.5 fL; WBC 8.47 10^3/uL (4.4-10.8)
[2023-04-21 03:12] LABS: ALT 17 U/L (14-59); AST 15 U/L (15-37); Albumin 3.4 g/dL (3.4-5.0); Alkaline Phosphatase 44 U/L (46-116); Anion Gap 10.5 mmol/L (3-11); BUN 16 mg/dL (7-18); Bilirubin, Total 0.3 mg/dL (0.2-1.0); CO2 24.5 mmol/L (21.0-32.0); CREATININE 0.9 mg/dL (0.55-1.02); Calcium 8.9 mg/dL (8.5-10.1); Chloride 104 mmol/L (98-107); Estimated GFR 72.28 (mL/min/1.73m2); Glucose 105 mg/dL (74-106); Potassium 3.5 mmol/L (3.5-5.1); Sodium 139 mmol/L (136-145); Total Protein 7.1 g/dL (6.4-8.2)
[2023-04-21 03:17] LABS: Lipase 183 U/L (16-77); Troponin I < 50 ng/L (<or=60)
[2023-04-21 03:22] LABS: ETHANOL BLOOD < 3.0 mg/dL (<10)
[2023-04-21 03:23] LABS: TSH (W/Ref FT4) 2.12 uIU/mL (0.36-3.74)
--- NOTE | 2023-04-21 03:31 | DI.VRAD_ITS ---
PROCEDURE INFORMATION: Exam: CT Head Without Contrast Exam date and time: 04/21/2023 2:24 AM Age: 62 years old Clinical indication: Injury or trauma; Fall; Blunt trauma (contusions or hematomas); Consciousness not specified; Injury date: 04/20/23 TECHNIQUE: Imaging protocol: Computed tomography of the head without contrast. Radiation optimization: All CT scans at this facility use at least one of these dose optimization techniques: automated exposure control; mA and/or kV adjustment per patient size (includes targeted exams where dose is matched to clinical indication); or iterative reconstruction. COMPARISON: CT HEAD WO 04/08/2023 1:06 PM FINDINGS: Brain: Periventricular white matter lucencies compatible with chronic microvascular ischemic changes. No intracranial hemorrhage. No mass effect or midline shift. Cerebral ventricles: The ventricles and sulci are prominent compatible with age-related involutional changes. Paranasal sinuses: Visualized sinuses are unremarkable. No fluid levels. Mastoid air cells: Visualized mastoid air cells are well aerated. Bones/joints: Unremarkable. No acute fracture. Soft tissues: Unremarkable. IMPRESSION: No acute intracranial findings. PROCEDURE INFORMATION: Exam: CT Cervical Spine Without Contrast Exam date and time: 04/21/2023 2:24 AM Age: 62 years old Clinical indication: Injury or trauma; Fall; Blunt trauma (contusions or hematomas); Consciousness not specified; Injury date: 04/20/23 TECHNIQUE: Imaging protocol: Computed tomography of the cervical spine without contrast. Radiation optimization: All CT scans at this facility use at least one of these dose optimization techniques: automated exposure control; mA and/or kV adjustment per patient size (includes targeted exams where dose is matched to clinical indication); or iterative reconstruction. COMPARISON: CT HEAD WO 04/08/2023 1:06 PM FINDINGS: Bones/joints: Normal alignment. No acute fracture or subluxation. Multilevel degenerative disc disease. Lungs: Possible scarring/fibrosis in the left apex. Soft tissues: Unremarkable. IMPRESSION: No fracture. Dictated and Authenticated by: Danish Ventura MD. Ordering:JAMEY Dobson MD
--- NOTE | 2023-04-21 03:54 | DI.VRAD_ITS ---
PROCEDURE INFORMATION: Exam: XR Right Femur Exam date and time: 04/21/2023 3:10 AM Age: 62 years old Clinical indication: Injury or trauma; Blunt trauma; Thigh or upper leg; Right; Injury date: 04/20; Injury details: Fall, pain TECHNIQUE: Imaging protocol: Radiologic exam of the right femur. Views: 2 views. COMPARISON: CT CHEST/ABD/PEL WO 04/21/2023 2:45 AM FINDINGS: Normal alignment. No acute fracture or dislocation. Large body at the lateral aspect of the right acetabulum. IMPRESSION: No fracture. Dictated and Authenticated by: Danish Ventura MD. Ordering:JAMEY Dobson MD
--- NOTE | 2023-04-21 03:56 | DI.VRAD_ITS ---
PROCEDURE INFORMATION: Exam: XR Left Femur Exam date and time: 04/21/2023 3:08 AM Age: 62 years old Clinical indication: Injury or trauma; Blunt trauma; Thigh or upper leg; Left; Injury date: 04/20; Injury details: Fall, pain TECHNIQUE: Imaging protocol: Radiologic exam of the left femur. Views: 2 views. COMPARISON: CT CHEST/ABD/PEL WO 04/21/2023 2:45 AM FINDINGS: Normal alignment. No acute fracture or dislocation. IMPRESSION: No fracture. Dictated and Authenticated by: Danish Ventura MD. Ordering:JAMEY Dobson MD
--- NOTE | 2023-04-21 04:13 | DI.VRAD_ITS ---
PROCEDURE INFORMATION: Exam: CT Thoracic Spine Without Contrast Exam date and time: 04/21/2023 2:45 AM Age: 62 years old Clinical indication: Other: Back pain; Patient HX: Fall, pain TECHNIQUE: Imaging protocol: Computed tomography of the thoracic spine without contrast. Radiation optimization: All CT scans at this facility use at least one of these dose optimization techniques: automated exposure control; mA and/or kV adjustment per patient size (includes targeted exams where dose is matched to clinical indication); or iterative reconstruction. COMPARISON: CT HEAD CERVICAL SPINE WO 04/21/2023 2:24 AM FINDINGS: Normal alignment. No acute fracture. Multilevel degenerative disc disease. IMPRESSION: No fracture. PROCEDURE INFORMATION: Exam: CT Lumbar Spine Without Contrast Exam date and time: 04/21/2023 2:45 AM Age: 62 years old Clinical indication: Other: Back pain; Patient HX: Fall, pain TECHNIQUE: Imaging protocol: Computed tomography of the lumbar spine without contrast. Radiation optimization: All CT scans at this facility use at least one of these dose optimization techniques: automated exposure control; mA and/or kV adjustment per patient size (includes targeted exams where dose is matched to clinical indication); or iterative reconstruction. COMPARISON: CT ABDOMEN PELVIS W 04/08/2023 1:10 PM FINDINGS: Normal alignment. No acute fracture. Degenerative disc disease at L5-S1. Transitional vertebra at S1. IMPRESSION: No acute fracture. Dictated and Authenticated by: Danish Ventura MD. Ordering:JAMEY Dobson MD
--- NOTE | 2023-04-21 04:19 | DI.VRAD_ITS ---
PROCEDURE INFORMATION: Exam: CT Chest Without Contrast; Diagnostic Exam date and time: 04/21/2023 2:45 AM Age: 62 years old Clinical indication: Injury or trauma; Fall; Generalized; Blunt trauma (contusions or hematomas); Injury date: 04/20 TECHNIQUE: Imaging protocol: Diagnostic computed tomography of the chest without contrast. 3D rendering (Not supervised by radiologist): MIP and/or 3D reconstructed images were created by the technologist. Radiation optimization: All CT scans at this facility use at least one of these dose optimization techniques: automated exposure control; mA and/or kV adjustment per patient size (includes targeted exams where dose is matched to clinical indication); or iterative reconstruction. COMPARISON: CT CHEST PE CTA 03/12/2023 8:39 PM FINDINGS: Lungs: Peripheral fibrotic changes in the left lung. No airspace consolidation or ground-glass opacities. Pleural spaces: No pleural effusion or pneumothorax. Heart: Unremarkable. No cardiomegaly. No pericardial effusion. Lymph nodes: Unremarkable. No enlarged lymph nodes. Vasculature: Unremarkable. No aortic aneurysm. Bones/joints: No acute fracture. Soft tissues: Unremarkable. IMPRESSION: No acute findings. PROCEDURE INFORMATION: Exam: CT Abdomen And Pelvis Without Contrast Exam date and time: 04/21/2023 2:45 AM Age: 62 years old Clinical indication: Injury or trauma; Fall; Generalized; Blunt trauma (contusions or hematomas); Injury date: 04/20 TECHNIQUE: Imaging protocol: Computed tomography of the abdomen and pelvis without contrast. 3D rendering (Not supervised by radiologist): MIP and/or 3D reconstructed images were created by the technologist. Radiation optimization: All CT scans at this facility use at least one of these dose optimization techniques: automated exposure control; mA and/or kV adjustment per patient size (includes targeted exams where dose is matched to clinical indication); or iterative reconstruction. COMPARISON: CT ABDOMEN PELVIS W 04/08/2023 1:10 PM FINDINGS: Liver: Probable cyst in the left lobe. Gallbladder and bile ducts: Normal. No calcified stones. No ductal dilation. Pancreas: Normal. No ductal dilation. Spleen: Normal. No splenomegaly. Adrenal glands: Normal. No mass. Kidneys and ureters: Stable hydronephrosis bilaterally. Stomach and bowel: No evidence of bowel obstruction. Large amount of stool in the colon. Persistent mucosal thickening of the sigmoid colon. Appendix: Normal appendix. Intraperitoneal space: Trace fluid in the pelvis. No free air. Vasculature: Unremarkable. No abdominal aortic aneurysm. Lymph nodes: Unremarkable. No enlarged lymph nodes. Urinary bladder: Predominantly left-sided bladder wall thickening. Reproductive: Unremarkable as visualized. Bones/joints: No acute fracture. Soft tissues: Unremarkable. IMPRESSION: 1. No acute traumatic findings. 2. Stable hydronephrosis bilaterally and bladder wall thickening. 3. Suspected sigmoid colitis. Dictated and Authenticated by: Danish Ventura MD. Ordering:JAMEY Dobson MD
[2023-04-21 04:27] VITALS: BP 149/72; PULSE 79; RESP 16; TEMP 36.6; O2SAT 99
--- NOTE | 2023-04-21 07:09 | NUR.NOTE ---
Nursing Note: Accessed patient chart to determine how many EKG orders were in the chart from the ED. There was an outstanding EKG in ordered status. There are no EKG's in the [employer] system that are outstanding. EKG order was deleted.
== END 2023-04-21 04:30 | disposition home or self-care (01) ==
PROVIDERS: Emergency Provider Student in an Organized Health Care Education/Training Program; PCP Nurse Practitioner Family
DX: S06.0X0A Concussion without loss of consciousness, initial encounter (principal); W19.XXXA Unspecified fall, initial encounter; R53.1 Weakness; N13.30 Unspecified hydronephrosis; M25.551 Pain in right hip; M25.552 Pain in left hip; M54.9 Dorsalgia, unspecified
CPT/HCPCS: 36415; 71250; 73552; 80053; 83690; 93005; 96360; 99284; 70450; 72125; 74176; 80320; 83735; 84443; 84484; 85025; 93010

== ENCOUNTER 2023-04-21 10:24 | Day surgery (SDC) | payer MEDICAID, SELFPAY ==
[2023-04-21 10:48] VITALS: BP 167/114; PULSE 82; RESP 126; TEMP 36.4; O2SAT 97
--- NOTE | 2023-04-21 11:07 | W.PM.HP.N ---
Date of service: 04/21/23 Time of Service: 11:07 Assessment and Plan Assessment and plan (1) Bladder mass: Status: Acute (2) Hydronephrosis: Status: Acute Assessment and plan: We will plan on cystoscopy and possible TUR bladder tumor History of Present Illness History of Present Illness Chief Complaint: Bladder mass Narrative: This is a 62-year-old woman who was seen in the emergency department for gastritis. She had a CT scan which demonstrated bilateral hydronephrosis. There was also some thickening of her bladder wall. We evaluated her with a nuclear renogram with Lasix washout. There was no complete obstruction on either side, but there was some delayed response to the Lasix. Her renal function is normal and she has no flank pain. She has had 5-10 red blood cells per high-power field on recent urinalysis. She presents now for cystoscopy to evaluate the bladder wall thickening. Review of Systems Narrative: c/o weakness. No fevers or chills No vision change or dysphasia No diabetes or thyroid dysfunction No shortness of breath, cough or hemoptysis No chest pain or palpitations No hepatitis, ulcers, jaundice c/o dizziness and frequent falls. No seizures, strokes or peripheral neuropathy No bleeding disorders or anemia No gout PFSH All Active Problems (Updated 04/21/23 @ 11:07 by Blaine Hendrciks MD) Bladder mass (Acute) Hydronephrosis (Acute) Headache (Acute) Nausea & vomiting (Acute) Gastritis (Acute) Fall (Acute) Weakness (Acute) Concussion (Acute) Medical History Breast CA left HTN (hypertension) Memory problem per patient Surgical History H/O mastectomy Bilat History of shoulder surgery S/P hernia repair Social History Smoking/Tobacco Use Status: Former Tobacco Use Smoking risk assessment performed?: Yes Drug use: Socially Substance use type: marijuana Details: MARIJUANA TONIGHT Do you feel safe at home: Yes Do you feel safe in your relationship?: Yes Meds Allergies and Home Medications Allergies Allergy/AdvReac Type Severity Reaction Status Date / Time fosaprepitant Allergy Unverified 04/15/23 11:09 iodine Allergy Unverified 04/15/23 11:09 Home Medications Medication Instructions Recorded Confirmed Type fluoxetine 20 mg capsule 60 mg PO DAILY 12/13/21 04/21/23 History meloxicam 15 mg tablet 15 mg PO DAILY 12/13/21 04/21/23 History valacyclovir 500 mg tablet 500 mg PO DAILY 12/13/21 04/21/23 History benzonatate 100 mg capsule 100 mg PO TID PRN cough #14 caps 10/12/22 04/21/23 Rx losartan 100 mg tablet 100 mg PO DAILY 03/12/23 04/21/23 History ondansetron 4 mg disintegrating 4 mg PO Q8H PRN nausea and 04/08/23 04/21/23 Rx tablet vomiting #30 tabs pantoprazole 40 mg tablet,delayed 40 mg PO DAILY #30 tabs 04/08/23 04/21/23 Rx release (Protonix) potassium chloride 20 mEq 20 meq PO DAILY 04/21/23 04/21/23 History tablet,extended release(part/cryst) Exam Const General: cooperative Neck Neck: supple Resp Effort & Inspection: normal respiratory effort Auscultation: clear to auscultation bilaterally Cardio Rate: regular rate Rhythm: regular rhythm GI Palpation: soft Neuro General: patient alert, patient awake and patient oriented x3 Results Last Vital Signs Temp 36.4 C L 04/21/23 10:48 Pulse 82 04/21/23 10:48 Resp 126 H 04/21/23 10:48 BP 167/114 H 04/21/23 10:48 Pulse Ox 97 04/21/23 10:48 Time Spent Time spent with Patient: <40 minutes Time was spent: other
--- NOTE | 2023-04-21 11:15 | W.ANESPRE ---
General Info Date of Service Date Performed: 04/21/23 Height: 5 ft 8 in Weight: 88 kg Body Mass Index (BMI): 29.5 Surgical Procedure: Operation Date: 04/21/23 11:40 Proposed Procedure Side Surgeon p Cysto, Possible Transurethral Resection Bladder Tumor Blaine Hendricks MD Meds Allergies and Home Medications Allergies Allergy/AdvReac Type Severity Reaction Status Date / Time fosaprepitant Allergy Unverified 04/15/23 11:09 iodine Allergy Unverified 04/15/23 11:09 Home Medication Medication Instructions Recorded fluoxetine 20 mg capsule 60 mg PO DAILY 12/13/21 meloxicam 15 mg tablet 15 mg PO DAILY 12/13/21 valacyclovir 500 mg tablet 500 mg PO DAILY 12/13/21 benzonatate 100 mg capsule 100 mg PO TID PRN cough #14 caps 10/12/22 losartan 100 mg tablet 100 mg PO DAILY 03/12/23 ondansetron 4 mg disintegrating 4 mg PO Q8H PRN nausea and 04/08/23 tablet vomiting #30 tabs pantoprazole 40 mg tablet,delayed 40 mg PO DAILY #30 tabs 04/08/23 release (Protonix) potassium chloride 20 mEq 20 meq PO DAILY 04/21/23 tablet,extended release(part/cryst) Current Visit Medications: Current Medications Generic Name Dose Route Start Last Admin Trade Name Freq PRN Reason Stop Dose Admin Ringer's Solution 1,000 mls @ 80 mls/hr 04/21/23 06:00 IV 04/21/23 23:59 INFUSION NABILA Cefazolin Sodium/Dextrose 2 gm in 50 mls @ 100 mls/hr 04/21/23 06:00 Ancef Duplex IVPB 04/21/23 23:59 PREOP NABILA IV Miscellaneous Supplies 1 each 04/21/23 06:00 Iv Access IV 04/21/23 23:59 DIRECTED NABILA Sodium Chloride 0 ml 04/21/23 06:00 Normal Saline Flush 10 Ml Syr IV 04/21/23 23:59 PRN PRN Sodium Chloride 0 ml 04/21/23 06:00 Normal Saline 10 Ml Vial IJ 04/21/23 23:59 DIRECTED PRN Sterile Water 0 ml 04/21/23 06:00 Water,Injection,Sterile 10 Ml Vial IJ 04/21/23 23:59 DIRECTED PRN PFSH Active Problems Active Problems: Problem Status Onset Code Bladder mass N32.89 Hydronephrosis N13.30 Headache R51.9 Nausea & vomiting R11.2 Gastritis K29.70 Fall W19.XXXA Weakness R53.1 Concussion [id number] Medical History Medical History Breast CA left HTN (hypertension) Memory problem per patient Surgical History Surgical History H/O mastectomy Bilat History of shoulder surgery S/P hernia repair Tobacco Smoking/Tobacco Use Status: Former Tobacco Use Substance Use Substance use: Socially Substance use type: marijuana Details: MARIJUANA TONIGHT Vital Signs and Lab Results Vital Signs Most Recent Vital Signs in EMR: Most Recent Vital Signs Temp Pulse Resp BP Pulse Ox 36.4 C L 82 126 H 167/114 H 97 04/21/23 10:48 04/21/23 10:48 04/21/23 10:48 04/21/23 10:48 04/21/23 10:48 Lab Results Blood Type / Crossmatch: Patient ABO/Rh A Positive 04/08/23 Antibody Screen NEGATIVE 04/08/23 Complete Blood Count: White Blood Count 8.47 10^3/uL (4.4-10.8) 04/21/23 02:15 Red Blood Count 4.22 10^6/uL (3.93-5.22) 04/21/23 02:15 Hemoglobin 12.8 g/dL (11.2-15.7) 04/21/23 02:15 Hematocrit 38.1 % (36.0-46.0) 04/21/23 02:15 Platelet Count 238 10^3/uL (130-400) 04/21/23 02:15 Complete Metabolic Panel: Sodium 139 mmol/L (136-145) 04/21/23 02:15 Potassium 3.5 mmol/L (3.5-5.1) 04/21/23 02:15 Chloride 104 mmol/L (98-107) 04/21/23 02:15 Carbon Dioxide 24.5 mmol/L (21.0-32.0) 04/21/23 02:15 BUN 16 mg/dL (7-18) 04/21/23 02:15 Creatinine 0.9 mg/dL (0.55-1.02) 04/21/23 02:15 Est GFR (CKD-EPI 2020) 72.28 (mL/min/1.73m2) 04/21/23 02:15 Magnesium 2.0 mg/dL (1.8-2.4) 04/21/23 02:15 Calcium 8.9 mg/dL (8.5-10.1) 04/21/23 02:15 Albumin 3.4 g/dL (3.4-5.0) 04/21/23 02:15 Glucose 105 mg/dL (74-106) 04/21/23 02:15 Liver Function Panel: Alanine Aminotransferase (ALT/SGPT) 17 U/L (14-59) 04/21/23 02:15 Aspartate Amino Transf (AST/SGOT) 15 U/L (15-37) 04/21/23 02:15 Coagulation Panel: INR International Normalized Ratio 1.0 (0.9-1.1) 04/08/23 21:30 Prothrombin Time 10.6 sec (9.3-11.0) 04/08/23 21:30 Activated Partial Thromboplast Time 26.4 sec (21.5-31.9) 04/08/23 21:30 Cardiac Panel: Troponin I < 50 ng/L (<or=60) 04/21/23 Arterial Blood Gas: No Data to Display Venous Blood Gas: No Data to Display Pancreas Panel: Lipase 183 U/L (16-77) H 04/21/23 02:15 Thyroid Panel: Thyroid Stimulating Hormone (TSH) 2.12 uIU/mL (0.36-3.74) 04/21/23 02:15 Infectious Disease: Coronavirus (COVID-19)(PCR) Negative (Negative) 04/08/23 11:46 Coronavirus 2019 Source Nasopharynx 04/08/23 11:46 Influenza Virus Type A (PCR) Negative (Negative) 04/08/23 11:46 Influenza Virus Type B (PCR) Negative (Negative) 04/08/23 11:46 Respiratory Syncytial Virus (PCR) Negative (Negative) 04/08/23 11:46 Blood Cultures: No Data to Display Toxicology Panel: Ethyl Alcohol Level < 3.0 mg/dL (<10) 04/21/23 02:15 Imaging and Studies Imaging and Studies Study information below may be from another EMR and interpreted by another provider. Please see original notes in EMR for more complete details. EKG Summary: Conclusion Sinus rhythm...normal P axis, V-rate 60- 99 04/21/23 Anesthesia Assessment and Plan Anesthesia History Personal History: No History of Anesthesia Complications Family History: No Family History of Anesthesia Complications Exercise Tolerance Exercise Tolerance: Metabolic Equivalents<4 Pertinent Negatives Pertinent Negatives: No Symptoms of GERD (none today, occ burping with nausea), No Major Cardiovascular Symptoms or Complaints and No Major Pulmonary Symptoms or Complaints Cardiac & Pulmonary Exam Cardiac Exam: Normal S1/S2 Heart Sounds Pulmonary Exam: Clear Bilateral Breath Sounds Implantable Cardiac Device Does patient have a Pacemaker or an ICD?: No Airway Exam Known Difficult Airway: No Mallampati Class: 2 Mouth Opening: Normal (> 3cm) Thyromental Distance: Greater than 3 cm Neck Range of Motion: Full ROM Neck Circumference: Normal Teeth Condition: Loose or Chipped (upper right molars loose) ASA Classification ASA Score: ASA 3 Emergency Case?: No NPO Status NPO Status: NPO Clears >2 hours, Solids >8 hours Anesthesia Plan Resuscitation Status: Full Code Anesthesia Technique: General Anesthesia Airway Planned: Natural Airway Monitors Used: Standard Monitors Preoperative Comments:: ER visit last night for bilateral leg weakness and multiple falls resulting in hitting her head. Work up negative and patient discharged home. Weakness in lower extremities continues. Discussed with marciano Berry to proceed.
[2023-04-21] MEDS: Lactated Ringers 1,000 ML 80 ML IV (11:43)
[2023-04-21 11:52] VITALS: BMI 29.5
[2023-04-21] MEDS: ceFAZolin 2 GM/50 ML BAG IVPB (11:57)
[2023-04-21] MEDS: Lidocaine 2% Jelly 6 ML SYR (12:19)
--- NOTE | 2023-04-21 12:27 | W.PM.DSUDISC ---
Date of service: 04/21/23 Time of Service: 12:27 Discharge Plan Disposition Patient Disposition: Home Condition: Stable Discharge Details Reason For Visit: cystoscopy Attending Provider: Blaine Hendricks Primary Care Provider: Lyubov Delgado Home Meds and New Rx's Prescriptions: No Action benzonatate 100 mg capsule 100 mg PO TID PRN (Reason: cough) Qty: 14 0RF Patient Comments: not taking meloxicam 15 mg Tablet 15 mg PO DAILY valacyclovir 500 mg Tablet 500 mg PO DAILY fluoxetine 20 mg Capsule 60 mg PO DAILY ondansetron 4 mg tablet,disintegrating 4 mg PO Q8H PRN (Reason: nausea and vomiting) Qty: 30 0RF pantoprazole [Protonix] 40 mg tablet,delayed release (DR/EC) 40 mg PO DAILY Qty: 30 0RF potassium chloride 20 mEq tablet,ER particles/crystals 20 meq PO DAILY losartan 100 mg Tablet 100 mg PO DAILY Discharge Instructions Additional Instructions: followup 1 year for urinalysis and nuclear renogram f/u for renal US in 6 months Activity:: Activity as Tolerated Shower/Bathe:: 24 hours Diet:: As Tolerated Discharge Orders Discharge Orders: Discharge Order (Routine); Ordered 04/21/23 Ordered By: Blaine Hendricks DS: Diagnosis Discharge Diagnosis (1) Bladder mass: Status: Acute (2) Hydronephrosis: Status: Acute
[2023-04-21 12:35] VITALS: BP 128/95; PULSE 73; RESP 16; TEMP 36.2; O2SAT 95
--- NOTE | 2023-04-21 12:41 | ROE_ITS ---
Date of service: 04/21/23 Time of Service: 12:41 Operative Note Operative Note DATE OF PROCEDURE: 04/21/23 PRE-OP DIAGNOSIS: Bladder mass POST-OP DIAGNOSIS: same PROCEDURE: cystoscopy SURGEON: Blaine Hendricks ANESTHESIA TYPE: General:No Airway Refer to Anesthesia Record ESTIMATED BLOOD LOSS: 5 PATHOLOGY: none sent COMPLICATIONS: None Patient was transported to: same day Patient's condition: stable Implants: none Indications: This is a 62-year-old woman who describes having had gross hematuria about 2 or 3 years ago. She recently had a CT of the abdomen and pelvis as part of her evaluation of gastritis. She was found to have bilateral hydronephrosis. On the right side, she has a known chronic ureteropelvic junction obstruction. The hydronephrosis on the left side was new and there was a question of thickening of the bladder wall on the left side. She then had a nuclear renogram which showed good renal function bilaterally with somewhat delayed response to Lasix injection. She now presents for cystoscopy to evaluate for possible bladder mass Findings: no visible bladder tumor or mass Procedure Description: The patient was brought to the operating room on 04/21/2023. She was given p reoperative antibiotics. After successful induction of general anesthesia, she was placed in the dorsal lithotomy position. Her genitalia was prepped and draped. 2% Xylocaine jelly was instilled into the urethra to act as a local anesthetic. A 24 [place] resectoscope sheath was passed through the urethra into the bladder. The urethra and bladder were inspected with a 30 degree lens. Both ureteral orifices appeared normal with no blood coming from either side. The bladder appeared smooth-walled with no papillary or nodular lesions. No erythematous patches of mucosa were identified. These findings were confirmed on reinspection of the bladder using a 70 degree lens. The bladder was emptied and the cystoscope was withdrawn.
[2023-04-21 13:15] VITALS: BP 168/100; PULSE 75; RESP 16; TEMP 36.3; O2SAT 96
--- NOTE | 2023-04-21 13:36 | W.ANESPOSTOP ---
Postoperative Evaluation Date, Time and Location Date Performed: 04/21/23 Time Performed: 12:41 Patient Location: Day Surgery Unit Vital Signs Most Recent Imported Vital Signs: Most Recent Vital Signs Temp Pulse Resp BP Pulse Ox 36.2 C L 73 16 128/95 H 95 04/21/23 12:35 04/21/23 12:35 04/21/23 12:35 04/21/23 12:35 04/21/23 12:35 Pain Score Most Recent Pain Score: Most Recent Pain Score Pain Level 0 04/21/23 12:35 Assessment Mental Status: Awake (Alert & Oriented to Patient Baseline) Airway and Respiratory Function: Patent airway with normal (patient baseline) respiratory exam Cardiovascular Function: Hemodynamically Stable Hydration Status: Adequately Hydrated Nausea & Vomiting: No Nausea or Vomiting Pain: Pt. Denies Any Pain Peripheral Nerve Block: Patient did not receive a nerve block
--- NOTE | 2023-04-21 14:41 | NUR.NOTE ---
Nursing Note: Pt due to her memory recall and her unsteadiness she took a lot of time. Due to this I neglected to provide Pyridium to this patient prior to her discharge. I made the DSU coordinator aware as well as Dr. Hendricks. Dr. Hendricks advised that it was not a big problem and was OK with the oversight.
== END 2023-04-21 14:20 | disposition home or self-care (01) ==
PROVIDERS: PCP Nurse Practitioner Family; Visit Provider Urology
PROC: 0TBB8ZZ Excision of Bladder, Via Natural or Artificial Opening Endoscopic (ICD-10-PCS; CPT 52000; principal; 2023-04-21 11:30)
DX: N32.89 Other specified disorders of bladder (principal); R31.0 Gross hematuria; Q62.11 Congenital occlusion of ureteropelvic junction
CPT/HCPCS: 52000; J0690; J1100; J1885; J2001; J2405

== ENCOUNTER 2023-04-23 00:33 | Outpatient (CLI) | payer MEDICAID, SELFPAY ==
--- NOTE | 2023-04-23 | DI.MRI_ITS ---
Exam(s) MR BRAIN WO EXAM: MR BRAIN WO CLINICAL HISTORY: IMPAIRED BALANCE,R26.89 TECHNIQUE: Multiplanar multisequence MRI of the brain was performed. COMPARISON: CT CT HEAD CERVICAL SPINE WO from 04/21/2023 FINDINGS: The examination is limited due to patient motion artifact. VENTRICLES AND EXTRA AXIAL SPACES: Normal in size and morphology for the patient's age. MIDLINE SHIFT: None. CEREBRAL PARENCHYMA: No focus of restricted diffusion to suggest acute infarct. No space-occupying le jono identified. There are areas of hyperintense signal on the T2 and FLAIR images in the white matte r most consistent with small vessel ischemic disease. HEMORRHAGE: None. BRAINSTEM/CEREBELLUM: Normal. CALVARIUM: Normal. VISUALIZED PARANASAL SINUSES/MASTOIDS:There is mild mucosal thickening in the left sphenoid sinus. T he remaining visualized paranasal sinuses are clear as are the mastoid air cells. [place]: Normal flow void. PITUITARY GLAND: Unremarkable. OTHER FINDINGS: None. IMPRESSION: Age-related cerebral atrophy and small vessel ischemic disease. DATA REPOSITORY:
== END 2023-04-23 00:53 ==
LOC: DI 00:33
PROVIDERS: PCP Nurse Practitioner Family; Visit Provider Nurse Practitioner Family
DX: I67.82 Cerebral ischemia (principal)
CPT/HCPCS: 70551

== ENCOUNTER 2023-05-02 15:27 | Inpatient (IN) | payer MEDICAID, SELFPAY ==
--- NOTE | 2023-05-02 15:15 | RT.EKG_ITS ---
APPROVED REPORT Exam: Resting ECG Reason for Exam: Dizziness Patient Location: E HR:81 bpm ECG Measurements Heart Rate 81 AXIS AZ 139 P 59 QRSd 94 QRS -30 QT 393 T 40 QTc 456 Conclusion Sinus rhythm...normal P axis, V-rate 60- 99 Left ventricular hypertrophy...multiple LVH criteria Inferior infarct, old...Q >35mS, II III aVF sinus rhythm, left axis, non ischemic
[2023-05-02 15:28] VITALS: BP 154/105; PULSE 82; RESP 18; O2SAT 98
--- NOTE | 2023-05-02 15:30 | DI.CT_ITS ---
Exam(s) CT HEAD WO EXAM: CT HEAD WO CLINICAL HISTORY: Trauma, Fall, LOC. TECHNIQUE: Imaging Protocol: Axial computed tomography images with coronal and sagittal reformatted images were created and reviewed COMPARISON: CT CT HEAD CERVICAL SPINE WO from 04/21/2023 FINDINGS: Ventricles and Extra axial spaces: Normal in size and morphology for the degree of atrophy. Hemorrhage: None. Cerebral parenchyma: No evidence of acute infarct or mass. Atrophy. Mild white matter changes of small vessel disease. Midline shift: None. Brainstem/Cerebellum: Normal. Calvarium: Normal. Visualized Paranasal sinuses/Mastoids: Mild mucous retention in the left sphenoid which appears impro aubrey when compared with the prior exam. Soft Tissues: Unremarkable. IMPRESSION: No acute intracranial process. RADIATION DOSE DELIVERED: 774.53mGy.cm Total DLP DATA REPOSITORY: All CT scans at this facility are submitted to the National Radiology Data Registry (NRDR) Dose Index Registry (DIR) with the [employer] (A[employer]). RADIATION OPTIMIZATION: All CT scans at this facility use at least one of these dose optimization te chniques: automated exposure control; mA and/or kV adjustment per patient size (includes targeted exa ms where dose is matched to clinical indication); or iterative reconstruction.
--- NOTE | 2023-05-02 15:43 | ED.GENADUL_ITS ---
Discharge Plan Disposition Patient Disposition: Admit to [facility] Condition: Serious Discharge Details Clinical Impression: Acute hypokalemia, Weakness, Laceration of scalp Admit Date/Time: 05/02/23 18:38 Admit Provider: Phong Wise Attending Provider: Phong Wise Primary Care Provider: Lyubov Delgado ED Provider: Leonora White Medical Decision Making 62 year old female with a Pmhx of Bladder Mass, weakness, falls, Breast CA, HTN, and memory problem, mastectomy presents after a fall today hitting her head on a radiator, unknown LOC, actively vomiting LAWYER PROBATE per EMS and here upon arrival. She is slow to respond, weak bilateral lower extremities, She is a&O x 2. She does not remember having surgery on 04/21 for a bladder mass. SHe has a approx 2 cm lac noted to the right parietal scalp. Bleeding controlled. She received 4 mg Zofran LAWYER PROBATE by EMS. Denies abd pain or diarrhea. Cardiac workup ordered Prior to my entrance into room. CT head ordered, CXR, and additional 4 zofran. Differential Dx incudes CVA, Dementia, MS 1552: Spoke with daughter Claire who states she is living with her ex due to patient being more forgetful and more weak recently. Claire daughter lives in [place] and has not seen her in 10 days, she was at that time up with assist to BSC, and wearing a depends. THey have been trying to get her into neurology and rehab with no avail. 1609: Spoke with Ex Issa who states she has gradually been weaker with frequent falls, vomiting,and declining over the last 4-5 weeks. Patient seen here multiple times over the last month, Does not have Neurology appointment until Sep and is now requiring home health and live in assistance for increasing falls, weakness, and vomiting. Potassium received from lab 2.8, Will order 10 meq Potassium IV. 1631: Patient continuing to vomit after 8 mg Zofran, Reglan 10mg Ordered. CT shows no acute changes. Laceration cleaned with Chlorahexadine, Krzysztof applied, wound well approximated. Will recommend admission for progressing weakness, confusion, frequent falls, and hypokalemia. UA shows no evidence of UTI, I did discuss with rn care manager-family Issa that they do not feel that patient is safe to be at home in her current condition. He states She is with it just enough that she will probably fall again and hurt herself more. 1809: Hospitalist tia. Spoke with Dr. Gamino regarding patient case and details he agrees to accept patient for admission. He does recommend an additional 20 of IV potassium which the order was placed. Holding orders placed for inpatient MedSurg telemetry. This text was generated using [employer] dictation system, please disregard any oddities of phrase or misspellings. Medical Records Medical records reviewed: Yes I reviewed the patient's medical records. Medical records narrative: Patient had MRI 04/23/23 Which showed : FINDINGS: The examination is limited due to patient motion artifact. VENTRICLES AND EXTRA AXIAL SPACES: Normal in size and morphology for the patient's age. MIDLINE SHIFT: None. CEREBRAL PARENCHYMA: No focus of restricted diffusion to suggest acute infarct. No space-occupying lesion identified. There are areas of hyperintense signal on the T2 and FLAIR images in the white matter most consistent with small vessel ischemic disease. HEMORRHAGE: None. BRAINSTEM/CEREBELLUM: Normal. CALVARIUM: Normal.? VISUALIZED PARANASAL SINUSES/MASTOIDS:There is mild mucosal thickening in the left sphenoid sinus.? The remaining visualized paranasal sinuses are clear as are the mastoid air cells.? [place]: Normal flow void. [place]: Unremarkable. OTHER FINDINGS: None. IMPRESSION: Age-related cerebral atrophy and small vessel ischemic disease.? Imaging Data Radiologic Study: Imaging: CT Scan Radiologist's impression: CLINICAL HISTORY: ? Trauma, Fall, LOC. ? TECHNIQUE:? Imaging Protocol: Axial computed tomography images with coronal and sagittal reformatted images were created and reviewed COMPARISON:? CT CT HEAD ? CERVICAL SPINE WO from 04/21/2023 FINDINGS: Ventricles and Extra axial spaces: Normal in size and morphology for the? degree of atrophy.? Hemorrhage: None. Cerebral parenchyma: No evidence of acute infarct or mass.? Atrophy.? ? Mild white matter changes of small vessel disease. Midline shift: None. Brainstem/Cerebellum: Normal. Calvarium: Normal. Visualized Paranasal sinuses/Mastoids: Mild mucous retention in the left sp henoid which appears improved when compared with the prior exam. Soft Tissues: Unremarkable. IMPRESSION: No acute intracranial process. Lab Data Lab results reviewed: Yes I reviewed the patient's lab results. Labs: Laboratory Tests Range/Units 05/02/23 05/02/23 05/02/23 15:52 15:52 15:52 WBC (4.4-10.8) 10^3/uL 5.69 RBC (3.93-5.22) 10^6/uL 4.79 Hgb (11.2-15.7) g/dL 14.4 Hct (36.0-46.0) % 41.6 MCV (80-95) fL 87 MCH (27.0-33.0) pg 30.1 MCHC (32.0-36.0) % 34.6 RDW (11.7-14.6) % 13.4 Plt Count (130-400) 10^3/uL 269 MPV (8.0-11.0) fL 9.2 Immature Gran % 0.2 Neutrophils % 51.1 Lymphocytes % 35.3 Monocytes % 11.8 Eosinophils % 1.2 Basophils % 0.4 Nucleated RBC % (0.0-0.3) % 0.0 Absolute Neutrophils (1.2-6.7) 10^3/uL 2.91 Absolute Lymphocytes (1.2-3.4) 10^3/uL 2.01 Absolute Monocytes (0.1-0.8) 10^3/uL 0.67 Absolute Eosinophils (0.0-0.7) 10^3/uL 0.07 Absolute Basophils (0.0-0.2) 10^3/uL 0.02 PT (9.3-11.0) sec 10.1 INR (0.9-1.1) 1.0 APTT (21.5-31.9) sec 25.2 Sodium (136-145) mmol/L 140 Potassium (3.5-5.1) mmol/L 2.8 L* Chloride (98-107) mmol/L 100 Carbon Dioxide (21.0-32.0) mmol/L 27.3 Anion Gap (3-11) mmol/L 12.7 H BUN (7-18) mg/dL 17 Creatinine (0.55-1.02) mg/dL 1.0 Est GFR (CKD-EPI 2020) (mL/min/1.73m2) 63.70 Glucose (74-106) mg/dL 99 Calcium (8.5-10.1) mg/dL 9.6 Magnesium (1.8-2.4) mg/dL 1.8 Total Bilirubin (0.2-1.0) mg/dL 0.3 AST (15-37) U/L 13 L ALT (14-59) U/L 19 Alkaline Phosphatase (46-116) U/L 50 Troponin I (<or=60) ng/L < 50 Total Protein (6.4-8.2) g/dL 7.8 Albumin (3.4-5.0) g/dL 3.9 Lipase (16-77) U/L Urine Color (Yellow) Urine Clarity (Clear) Urine pH (5-8) Ur Specific Marcus (1.005-1.025) Urine Protein (Negative) mg/dL Urine Ketones (Negative) mg/dL Urine Blood (Negative) Urine Nitrite (Negative) Urine Bilirubin (Negative) Urine Urobilinogen (Up to 0.2) mg/dL Ur Leukocyte Esterase (Negative) Urine RBC (0-2) HPF Urine WBC (0-5) HPF Ur Epithelial Cells (Negative) HPF Urine Crystals (Negative) HPF Urine Bacteria (Negative) HPF Urine Casts (Negative) LPF Urine Mucus (Negative) Ur Culture Indicated? Urine Glucose (Negative) mg/dL Add-On Test Request Range/Units 05/02/23 05/02/23 05/02/23 15:52 16:33 17:25 WBC (4.4-10.8) 10^3/uL RBC (3.93-5.22) 10^6/uL Hgb (11.2-15.7) g/dL Hct (36.0-46.0) % MCV (80-95) fL MCH (27.0-33.0) pg MCHC (32.0-36.0) % RDW (11.7-14.6) % Plt Count (130-400) 10^3/uL MPV (8.0-11.0) fL Immature Gran % Neutrophils % Lymphocytes % Monocytes % Eosinophils % Basophils % Nucleated RBC % (0.0-0.3) % Absolute Neutrophils (1.2-6.7) 10^3/uL Absolute Lymphocytes (1.2-3.4) 10^3/uL Absolute Monocytes (0.1-0.8) 10^3/uL Absolute Eosinophils (0.0-0.7) 10^3/uL Absolute Basophils (0.0-0.2) 10^3/uL PT (9.3-11.0) sec INR (0.9-1.1) APTT (21.5-31.9) sec Sodium (136-145) mmol/L Potassium (3.5-5.1) mmol/L Chloride (98-107) mmol/L Carbon Dioxide (21.0-32.0) mmol/L Anion Gap (3-11) mmol/L BUN (7-18) mg/dL Creatinine (0.55-1.02) mg/dL Est GFR (CKD-EPI 2020) (mL/min/1.73m2) Glucose (74-106) mg/dL Calcium (8.5-10.1) mg/dL Magnesium (1.8-2.4) mg/dL Total Bilirubin (0.2-1.0) mg/dL AST (15-37) U/L ALT (14-59) U/L Alkaline Phosphatase (46-116) U/L Troponin I (<or=60) ng/L Total Protein (6.4-8.2) g/dL Albumin (3.4-5.0) g/dL Lipase (16-77) U/L 35 Urine Color (Yellow) Yellow Urine Clarity (Clear) Clear Urine pH (5-8) 5.5 Ur Specific Marcus (1.005-1.025) 1.015 Urine Protein (Negative) mg/dL Negative Urine Ketones (Negative) mg/dL Negative Urine Blood (Negative) Trace-intact H Urine Nitrite (Negative) Negative Urine Bilirubin (Negative) Negative Urine Urobilinogen (Up to 0.2) mg/dL 0.2 Ur Leukocyte Esterase (Negative) Negative Urine RBC (0-2) HPF 0-2 Urine WBC (0-5) HPF 0-2 Ur Epithelial Cells (Negative) HPF Few Urine Crystals (Negative) HPF Negative Urine Bacteria (Negative) HPF Negative Urine Casts (Negative) LPF Negative Urine Mucus (Negative) Negative Ur Culture Indicated? No Urine Glucose (Negative) mg/dL Negative Add-On Test Request DONE HPI General Mode of arrival: EMS . Date/Time Provider Initiated Documentation: 05/02/23 15:34 . Limitations to Documentation: altered mental status . Information obtained by: patient, RN notes reviewed and old records reviewed . HPI Narrative: 62 year old female with a Pmhx of Bladder Mass, weakness, falls, Breast CA, HTN, and memory problem, mastectomy presents after a fall today hitting her head on a radiator, unknown LOC, actively vomiting LAWYER PROBATE per EMS and here upon arrival. She is slow to respond, weak bilateral lower extremities, She is a&O x 2. She does not remember having surgery on 04/21 for a bladder mass. SHe has a approx 2 cm lac noted to the right parietal scalp. Bleeding controlled. She received 4 mg Zofran LAWYER PROBATE by EMS. Related Data Home Medications Medication Instructions Recorded Confirmed fluoxetine 20 mg capsule 60 mg PO DAILY 12/13/21 05/02/23 meloxicam 15 mg tablet 15 mg PO DAILY 12/13/21 05/02/23 valacyclovir 500 mg tablet 500 mg PO DAILY 12/13/21 05/02/23 benzonatate 100 mg capsule 100 mg PO TID PRN cough #14 caps 10/12/22 05/02/23 losartan 100 mg tablet 100 mg PO DAILY 03/12/23 05/02/23 ondansetron 4 mg disintegrating 4 mg PO Q8H PRN nausea and 04/08/23 05/02/23 tablet vomiting #30 tabs pantoprazole 40 mg tablet,delayed 40 mg PO DAILY #30 tabs 04/08/23 05/02/23 release (Protonix) potassium chloride 20 mEq 20 meq PO DAILY 04/21/23 05/02/23 tablet,extended release(part/cryst) Previous Rx's Medication Instructions Recorded benzonatate 100 mg capsule 100 mg PO TID PRN cough #14 caps 10/12/22 ondansetron 4 mg disintegrating 4 mg PO Q8H PRN nausea and 04/08/23 tablet vomiting #30 tabs pantoprazole 40 mg tablet,delayed 40 mg PO DAILY #30 tabs 04/08/23 release (Protonix) Allergies Allergy/AdvReac Type Severity Reaction Status Date / Time fosaprepitant Allergy Unverified 05/02/23 15:35 iodine Allergy Unverified 05/02/23 15:35 General Stated Complaint: Trauma MILA: 2 Review of Systems All systems reviewed & are unremarkable except as noted in HPI and below Constitutional Constitutional: Reports frequent falls, Reports headache(s) and Reports weakness Eyes Eyes: Denies loss of vision ENT Ears, Nose, Mouth, and Throat: Reports headache(s) Gastrointestinal Gastrointestinal: Reports nausea and Reports vomiting Neurologic Neurologic: Reports as per HPI, Reports abnormal movements (Tremor to RLE), Reports confusion, Reports frequent falls, Reports headache(s), Denies loss of vision, Reports memory loss and Reports weakness Psychiatric Psychiatric: Reports confusion and Reports memory loss PFSH All Active Problems (Updated 05/02/23 @ 18:42 by Leonora White NP) Acute hypokalemia (Acute) Laceration of scalp (Acute) Bladder mass (Acute) Hydronephrosis (Acute) Headache (Acute) Nausea & vomiting (Acute) Gastritis (Acute) Fall (Acute) Weakness (Acute) Concussion (Acute) Medical History Breast CA left HTN (hypertension) Memory problem per patient Surgical History H/O mastectomy Bilat History of shoulder surgery S/P hernia repair Social History Smoking/Tobacco Use Status: Former Tobacco Use Smoking risk assessment performed?: Yes Drug use: Socially Substance use type: marijuana Details: MARIJUANA TONIGHT Do you feel safe at home: Yes Do you feel safe in your relationship?: Yes Exam Narrative Exam Narrative: General: Well Developed, Awake and, conversant. Skin: Warm and Dry HEENT: Head: No palpable deformities, Normocephalic approximately 3 cm laceration noted to right parietal scalp, partial-thickness slight surrounding hematoma noted. No other injuries. Eyes: Pupils PERRLA, EOM's intact. No periorbital eccymosis or step off Ears: Canal patent. Tympanic membranes are clear . No painting's sign, no hemptympanum. Nose/Face: Atraumatic. Facial bones nontender to palpation and stable with manipulation. Mouth/Throat: No intraoral trauma. Teeth and mandible are intact. Neck: No midline tenderness, no step off, no deformity to palpation of C-spine. Trachea midline. Chest: No surface trauma. Nontender without crepitus or deformity. Lungs clear to ausculatation bilaterally. Heart: RRR, no rubs, murmurs or gallop. Abdomen: No abrasions, ecchymosis, or surface trauma. Nondistended. Nontender to palpation no guarding, rebound, or rigidity. Patient is actively vomiting upon initial presentation. Pelvis: Nontender to palpation and stable to compression. Femoral pulses strong and equal Extremities: no surface trauma. Sensation intact. Peripheral pulses intact and equal. Neuro: ANO x2, GCS 15, cranial nerves II through XII intact. Right lower extre mity tremulous and much weaker than the left lower extremity. Hand Binder Cutter are equal bilaterally. Intact shoulder raise, no facial droop, . Course Vital Signs Vital signs: Vital Signs Pulse 82 05/02/23 15:28 Respiratory Rate 18 05/02/23 15:28 Blood Pressure 154/105 H 05/02/23 15:28 Pulse Oximetry 98 05/02/23 15:28 Pulse 82 05/02/23 15:28 Respiratory Rate 18 05/02/23 15:28 Respiratory Effort Normal 05/02/23 15:36 Blood Pressure 154/105 H 05/02/23 15:28 Pulse Oximetry 98 05/02/23 15:28 Oxygen Delivery Method Room Air 05/02/23 15:28 Oxygen Flow Rate 0 05/02/23 15:28 Pain Level 6 05/02/23 15:28 Procedures Laceration Laceration 1: Site: scalp Side (If applicable): right Size (cm): 3 Description: irregular Depth: simple, single layer Local Anesthetic: Lidocaine 1% and with Epi Amount of anesthesia used (mL): 2 Pre-repair: wound explored, irrigated extensively and deep structures intact Skin layer closed with: other (Dwight) Size (cm): other (3 krzysztof)
--- NOTE | 2023-05-02 15:45 | DI.RAD_ITS ---
Exam(s) XR CHEST 1V IN DI DEPT EXAM: XR CHEST 1V IN DI DEPT CLINICAL HISTORY: Trauma, Fall TECHNIQUE: 2D digital imaging was performed. COMPARISON: CT CT CHEST/ABD/PEL WO from 04/21/2023 FINDINGS: LUNGS: Clear. No pleural abnormality seen. HEART: Normal size. AORTA: Normal diameter. BONES: Degenerative changes in the spine and left shoulder. Soft tissues: Calcifications in the left subcoracoid region may be loose bodies in the subcoracoid bu rsa. IMPRESSION: No acute findings. DATA REPOSITORY: RADIATION DOSE DELIVERED:
[2023-05-02] MEDS: Ondansetron 4 MG/2 ML VIAL (15:56)
[2023-05-02 16:10] LABS: Abs Immature Grans 0.01 10^3/uL (0.0-0.06); Absolute Basophil Count 0.02 10^3/uL (0.0-0.2); Absolute Eosinophil Count 0.07 10^3/uL (0.0-0.7); Absolute Lymphocyte Count 2.01 10^3/uL (1.2-3.4); Absolute Monocyte Count 0.67 10^3/uL (0.1-0.8); Absolute Neutrophil Count 2.91 10^3/uL (1.2-6.7); Basophils % 0.4; Eosinophils % 1.2; HCT 41.6 % (36.0-46.0); HGB 14.4 g/dL (11.2-15.7); Immature Grans % 0.2; Lymphocytes % 35.3; MCH 30.1 pg (27.0-33.0); MCHC 34.6 % (32.0-36.0); MCV 87 fL (80-95); MPV 9.2 fL (8.0-11.0); Monocytes % 11.8; Neutrophils % 51.1; Platelet Count 269 10^3/uL (130-400); RBC 4.79 10^6/uL (3.93-5.22); RDW 13.4 % (11.7-14.6); RDW-SD 43.3 fL; WBC 5.69 10^3/uL (4.4-10.8)
[2023-05-02 16:14] LABS: PTT Activated 25.2 sec (21.5-31.9); Prothrombin Time 10.1 sec (9.3-11.0)
[2023-05-02 16:22] LABS: ALT 19 U/L (14-59); AST 13 U/L (15-37); Albumin 3.9 g/dL (3.4-5.0); Alkaline Phosphatase 50 U/L (46-116); Anion Gap 12.7 mmol/L (3-11); BUN 17 mg/dL (7-18); Bilirubin, Total 0.3 mg/dL (0.2-1.0); CO2 27.3 mmol/L (21.0-32.0); Calcium 9.6 mg/dL (8.5-10.1); Chloride 100 mmol/L (98-107); Glucose 99 mg/dL (74-106); Magnesium 1.8 mg/dL (1.8-2.4); Sodium 140 mmol/L (136-145); Total Protein 7.8 g/dL (6.4-8.2); Troponin I < 50 ng/L (<or=60)
[2023-05-02 16:24] LABS: Potassium 2.8 mmol/L (3.5-5.1)
[2023-05-02] MEDS: Metoclopramide 10 MG/2 ML VIAL IVP (16:38)
[2023-05-02] MEDS: Lidocaine/Epinephri/Tetracaine Topical Gel 3 ML TP (16:38)
[2023-05-02] MEDS: POTASSIUM CHLORIDE 10 MEQ/100 ML BAG 100 MEQ IVPB (16:42)
[2023-05-02 17:14] LABS: Lab Add On Test DONE
[2023-05-02 17:22] LABS: Lipase 35 U/L (16-77)
[2023-05-02 17:40] LABS: Bilirubin Negative (Negative); Blood Trace-intact (Negative); Clarity Clear (Clear); Glucose Negative (Negative); Ketones Negative (Negative); Leukocyte Esterase Negative (Negative); Nitrite Negative (Negative); Specific Gravity 1.015 (1.005-1.025); Urobilinogen 0.2 mg/dL (Up to 0.2); pH 5.5 (5-8)
[2023-05-02 17:50] LABS: Bacteria Negative HPF (Negative); C & S Indicated? No; Casts Negative LPF (Negative); Crystals Negative HPF (Negative); Epithelial Cells Few HPF (Negative); Mucus Negative (Negative); RBC 0-2 HPF (0-2); WBC 0-2 HPF (0-5)
[2023-05-02] MEDS: POTASSIUM CHLORIDE 20 MEQ/100 ML BAG 50 MEQ IVPB (19:16)
[2023-05-02 20:01] VITALS: BP 126/87; PULSE 76; RESP 16; TEMP 36.4; O2SAT 96
[2023-05-02 20:04] VITALS: BP 126/87; PULSE 76; RESP 16; TEMP 36.4; O2SAT 96
--- NOTE | 2023-05-02 20:59 | W.PM.HP.N ---
Date of service: 05/02/23 Time of Service: 20:59 Assessment and Plan Assessment and plan (1) Acute hypokalemia: Status: Acute Assessment and plan: In the setting of vomiting, which is likely the acute cause. She does have some chronic hypokalemia and hypertension which raises concern for hyperaldosteronism. SHe is also on chlorthalidone which is clearly contributing. I will replace this with spironolactone. Normal magnesium. Replacing with IV fluids given her nausea and vomiting (2) Memory problem: Assessment and plan: I am concerned with her clear memory deficit that has been associated with leg weakness (non-focal on my exam) as well as headache and urinary incontinence. Multiple CTs and and MRI have not revealed bleeding, CVA, mass, or signs of other pathology. NPH in DDx but normal ventrical size. She is not showing signs of infection. This seems to be progressing relatively rapidly over a period of weeks to the point where she is not safe living alone. - getting additional labs including B12, RPR, HIV, UDS, ESR. - I think an LP is warranted, though not c/w acute infection things like prion disease and inflammatory disorders are in the differential. - EEG would be useful - Consult Neurology (3) Headache: Status: Acute Assessment and plan: See above, this may be a part of a neurological disorder. Per history this started after her 04/08 fall suggesting this could simply be post-traumatic, but headache was a complaint at her 03/12 visit as well. Consulting neurology. (4) Bladder mass: Status: Acute Assessment and plan: Associated with hydronephrosis, but the hydroneprosis is 2-3 years old per urology. SHe just had cystoscopy with biopsy 04/21, and I don't see results. (5) HTN (hypertension): Assessment and plan: BP okay now. Given low K+ I am stopping chlorthalidone and starting spironolactone. (6) Nausea & vomiting: Status: Acute Assessment and plan: Seems associated with her neurologic symptoms. See above. Treat with metoclopramide prn and ondanzatron. (7) DVT prophylaxis: Status: Acute Assessment and plan: LMWH given decreased mobility and recent trauma (8) Discharge planning issues: Status: Acute Assessment and plan: She may need placement given falls and cognitive decline. Get PT to assess safety/mobility History of Present Illness History of Present Illness Chief Complaint: falls, vomiting Narrative: 62 year old female with history of hypertension, remote breast cancer, and recently noted bladder mass associated with hydronephrosis presenting today to the emergency room for the fourth time in the past month, this time with headache and vomiting after falling and hitting her head on the radiator. She has had memory loss recently and can't recall if she lost consciousness or exactly how she fell, but she has had some difficulty with balance over the past year that is worse in the last few weeks. She tends to fall to the right. She was aware enough to call EMS. She has a left sided headache deep to her ear, but this started after her first fall weeks ago. She has had episodic vomiting that is worse when she tries to stand up today after her fall. Her recent visits are as below: 03/07/23 presented with very high blood pressure and chest pain, negative troponins, EKG, POC echo, and CTA of chest. Treated for UTI. Lyme negative. 04/08/23: Presented with one day of nausea and vomiting and RLQ abdominal pain and headaches. One month of fatigue noted. Labs and CT A/P done. Bilateral hydronephrosis and bladder wall density noted. Colitis in rectosigmoid colon also noted, but no diarrhea. Normal non-enhanced brain CT. 04/09/23 presented with vomiting blood, given pantoprazole and plan outpatient endoscopy. 04/21/23 presented with falls, hit head. Complained of bilateral leg weakness and multiple falls at home, headache. Negative CT head and cervical spine. She also had some back pain and CT C/A/P also done with was unrevealing. She states her PCP did change some of her medication recently (in [place], no records). She has old medication bottles and recently stopped gabapenting, methylfenidate. Review of Systems Constitutional Constitutional: Denies anorexia, Denies chills, Denies fever(s), Reports lethargy and Denies night sweats Eyes Eyes: Reports change in vision (left eye getting worse over past few weeks), Denies diplopia, Denies irritation and Reports seeing flashes ENT Ears, Nose, Mouth, and Throat: Reports change in voice (new stutter, seems like over the past few weeks), Denies dysphagia, Denies vertigo, Denies dizziness, Denies otalgia, Denies hearing loss, Denies hoarseness, Denies nasal congestion, Denies nasal discharge, Denies neck pain and Denies sore throat Cardiovascular Cardiovascular: Denies chest pain, Denies syncope, Reports irregular heart rhythm and Denies orthopnea Respiratory Respiratory: Denies cough, Denies excessive phlegm production and Denies wheezing Gastrointestinal Gastrointestinal: Denies melena, Denies dysphagia, Denies heartburn, Denies diarrhea and Reports vomiting Genitourinary Genitourinary: Denies hematuria, Denies dysuria and Reports urinary incontinence (new per family over the past few weeks) Musculoskeletal Musculoskeletal: Denies neck pain Integumentary/Breasts Skin/Breast: Denies rash and Denies skin ulcer Neurologic Neurologic: Reports confusion, Denies vertigo, Denies dizziness, Denies syncope and Denies sensory deficit Psychiatric Psychiatric: Reports confusion, Reports difficulty concentrating, Denies mood swings, Denies visual hallucinations and Denies hallucinations Hematologic/Lymphatic Hematologic/Lymphatic: Denies easy bleeding Allergic/Immunologic Allergic/Immunologic: Denies wheezing PFSH All Active Problems (Updated 05/02/23 @ 21:45 by hPong Wise) Discharge planning issues (Acute) DVT prophylaxis (Acute) Acute hypokalemia (Acute) Laceration of scalp (Acute) Bladder mass (Acute) Hydronephrosis (Acute) Headache (Acute) Nausea & vomiting (Acute) Gastritis (Acute) Fall (Acute) Weakness (Acute) Concussion (Acute) Medical History Breast CA left HTN (hypertension) Memory problem per patient Surgical History H/O mastectomy Bilat History of shoulder surgery S/P hernia repair Family History (Updated 05/02/23 @ 21:31 by Phong Wise) Father Hypokalemia Mother Schizophrenia Cancer Liver Brother Heart disease Social History (Updated 05/02/23 @ 21:29 by Phong Wise) Smoking/Tobacco Use Status: Former Tobacco Use Smoking risk assessment performed?: Yes Alcohol Intake: former Drug use: Socially Substance use type: marijuana Details: MARIJUANA TONIGHT Do you feel safe at home: Yes Do you feel safe in your relationship?: Yes Additional Social history: Was living and working at [employer] in [place], [place], recently closed , but went to live with ex Issa crenshaw 04/08 ED visit. 3 daughters, two in [place] Meds Allergies and Home Medications Allergies Allergy/AdvReac Type Severity Reaction Status Date / Time fosaprepitant Allergy Unverified 05/02/23 15:35 iodine Allergy Unverified 05/02/23 15:35 Home Medications Medication Instructions Recorded Confirmed Type fluoxetine 20 mg capsule 60 mg PO DAILY 12/13/21 05/02/23 History meloxicam 15 mg tablet 15 mg PO DAILY 12/13/21 05/02/23 History valacyclovir 500 mg tablet 500 mg PO DAILY 12/13/21 05/02/23 History benzonatate 100 mg capsule 100 mg PO TID PRN cough #14 caps 10/12/22 05/02/23 Rx losartan 100 mg tablet 100 mg PO DAILY 03/12/23 05/02/23 History ondansetron 4 mg disintegrating 4 mg PO Q8H PRN nausea and 04/08/23 05/02/23 Rx tablet vomiting #30 tabs pantoprazole 40 mg tablet,delayed 40 mg PO DAILY #30 tabs 04/08/23 05/02/23 Rx release (Protonix) potassium chloride 20 mEq 20 meq PO DAILY 04/21/23 05/02/23 History tablet,extended release(part/cryst) Exam Narrative Exam Narrative: GEN: Alert and oriented, pleasant and cooperative, gives limited history, doesn't remember recent events over days to weaks. No acute distress at rest. HEENT: Head with closed laceration right parietal scalp. Conjunctiva clear, no icterus. PEERL, EOMI. no nystagmus. no rhinorrhea. MMM, OP benign. Neck is supple with normal ROM, no masses or lymphadenopathy, trachea midline LUNGS: CTAB with normal effort CV: RRR with no murmurs, gallops, or rubs. ABD: +BS, soft, non-distended. Mild epigastric tenderness EXT: no cyanosis, clubbing, or edema MSK: No joint redness or swelling NEURO: CN 2-12 grossly intact. Normal movement of 4 extremities with symmetrical strength in LE. She has bilaterally ~5 beats of clonus, but DTRs 1+ in patella bilaterally, toes downgoing. Sensation normal to light touch, but poor spacial proprioception. She was too afraid of nausea/vomiting to attempt to get up. Normal speech but she does have a mild stutter. Normal coordination. Mild tremor with hands extended, sometimes in right hand at rest. Normal tone. SKIN: No rashes or open wounds. Some bruising from IVs. PSYCH: slightly anxious mood and affect Results Imaging Chest x-ray: report reviewed (No acute findings.) Imaging Studies: CT head w/o No acute intracranial process. Atrophy and small vessel white matter changes MRI brain 04/23/23: Age-related cerebral atrophy and small vessel ischemic disease.? Labs 05/02/23 15:52 05/02/23 15:52 Labs: Laboratory Results - last 24 hr 05/02/23 05/02/23 05/02/23 15:52 15:52 15:52 WBC 5.69 RBC 4.79 Hgb 14.4 Hct 41.6 MCV 87 MCH 30.1 MCHC 34.6 RDW 13.4 Plt Count 269 MPV 9.2 Immature Gran % 0.2 Neutrophils % 51.1 Lymphocytes % 35.3 Monocytes % 11.8 Eosinophils % 1.2 Basophils % 0.4 Nucleated RBC % 0.0 Absolute Neutrophils 2.91 Absolute Lymphocytes 2.01 Absolute Monocytes 0.67 Absolute Eosinophils 0.07 Absolute Basophils 0.02 PT 10.1 INR 1.0 APTT 25.2 Sodium 140 Potassium 2.8 L* Chloride 100 Carbon Dioxide 27.3 Anion Gap 12.7 H BUN 17 Creatinine 1.0 Est GFR (CKD-EPI 2020) 63.70 Glucose 99 Calcium 9.6 Magnesium 1.8 Total Bilirubin 0.3 AST 13 L ALT 19 Alkaline Phosphatase 50 Troponin I < 50 Total Protein 7.8 Albumin 3.9 Lipase Urine Color Urine Clarity Urine pH Ur Specific [place] Urine Protein Urine Ketones Urine Blood Urine Nitrite Urine Bilirubin Urine Urobilinogen Ur Leukocyte Esterase Urine RBC Urine WBC Ur Epithelial Cells Urine Crystals Urine Bacteria Urine Casts Urine Mucus Ur Culture Indicated? Urine Glucose Add-On Test Request 05/02/23 05/02/23 05/02/23 15:52 16:33 17:25 WBC RBC Hgb Hct MCV MCH MCHC RDW Plt Count MPV Immature Gran % Neutrophils % Lymphocytes % Monocytes % Eosinophils % Basophils % Nucleated RBC % Absolute Neutrophils Absolute Lymphocytes Absolute Monocytes Absolute Eosinophils Absolute Basophils PT INR APTT Sodium Potassium Chloride Carbon Dioxide Anion Gap BUN Creatinine Est GFR (CKD-EPI 2020) Glucose Calcium Magnesium Total Bilirubin AST ALT Alkaline Phosphatase Troponin I Total Protein Albumin Lipase 35 Urine Color Yellow Urine Clarity Clear Urine pH 5.5 Ur Specific [place] 1.015 Urine Protein Negative Urine Ketones Negative Urine Blood Trace-intact H Urine Nitrite Negative Urine Bilirubin Negative Urine Urobilinogen 0.2 Ur Leukocyte Esterase Negative Urine RBC 0-2 Urine WBC 0-2 Ur Epithelial Cells Few Urine Crystals Negative Urine Bacteria Negative Urine Casts Negative Urine Mucus Negative Ur Culture Indicated? No Urine Glucose Negative Add-On Test Request DONE Last Vital Signs Temp 36.4 C L 05/02/23 20:01 Pulse 76 05/02/23 20:01 Resp 16 05/02/23 20:01 BP 126/87 05/02/23 20:01 Pulse Ox 96 05/02/23 20:01 Time Spent Time spent with Patient: >75 minutes Time was spent: preparing to see the patient(eg.review tests), obtaining and/or reviewing separately otained hiistory, ordering medications,tests, procedures, referring, communicating with other health progressive care unit registered nurse, indepentently interpreting results and counseling the patient
[2023-05-02 22:03] VITALS: BP 123/83; PULSE 78; RESP 16; TEMP 36.3; O2SAT 97
[2023-05-02 22:19] VITALS: PULSE 70
[2023-05-02 23:00] VITALS: PULSE 77
[2023-05-03] VITALS (7 sets, daily range): BP systolic 118–149; BP diastolic 76–99; PULSE 75–89; RESP 18–20; TEMP 36.4–37; O2SAT 91–97
[2023-05-03] MEDS: POTASSIUM CHLORIDE/D5-0.9%NACL 1,000 ML 120 MEQ IV ×2 (00:37→09:42)
[2023-05-03] MEDS: Metoclopramide 10 MG/2 ML VIAL IVP ×2 (00:48→05:40)
[2023-05-03 05:06] LABS: *AMPHETAMINES SCREEN URINE Negative (Negative); *BARBITURATES SCREEN URINE Negative (Negative); *BENZODIAZEPINES SCREEN URINE Negative (Negative); Cannabinoids THC Negative (Negative); Cocaine Screen,Urine Negative (Negative); METHADONE URINE SCREEN Negative (Negative); OPIATES URINE SCREEN Negative (Negative)
[2023-05-03 05:08] LABS: Tricyclic Antidepressants Negative (Negative)
[2023-05-03 08:17] LABS: ESR 21 mm/hr (0-30)
[2023-05-03] MEDS: Potassium Chloride 20 MEQ TABCR PO (08:24)
[2023-05-03] MEDS: Spironolactone 25 MG TAB PO (08:24)
[2023-05-03] MEDS: Pantoprazole 40 MG TABCR PO (08:24)
[2023-05-03] MEDS: FLUoxetine 20 MG CAP 60 MG PO (08:24)
[2023-05-03] MEDS: Losartan 50 MG TAB 100 MG PO (08:24)
[2023-05-03 08:57] LABS: Anion Gap 9.1 mmol/L (3-11); BUN 11 mg/dL (7-18); CO2 26.9 mmol/L (21.0-32.0); Calcium 8.8 mg/dL (8.5-10.1); Chloride 106 mmol/L (98-107); Glucose 127 mg/dL (74-106); Potassium 3.1 mmol/L (3.5-5.1); Sodium 142 mmol/L (136-145); Vitamin B12 557 pg/mL (193-986)
--- NOTE | 2023-05-03 09:29 | PT.INIE ---
Date of service: 05/03/23 Time of Service: 08:50 PT Notes Visit Reasons: Hypokalemia, Weakness, Frequent Falls, Head Injury Inpatient Physical Therapy Evaluation Date: 05/03/23 Referring Doctor: Phong Wise MD PT Orders: PT CONSULT: Fall Safety Assessment, Eval for Asistive Device - fall, leg weakness, neurodegernation? Precautions: Fall risk Patient Profile/Admitting Diagnosis: 62 year old female with history of multiple falls increasing in number of the past year, and leg weakness, presenting 05/02/23 to the emergency room for the fourth time in the past month, this time with headache and vomiting after falling and hitting her head on the radiator.? She does not recall if she lost consciousness or exactly how she fell. Negative CT head and cervical spine.? She also had some back pain and CT C/A/P also done with was unrevealing.?Neurodegeneration or other neurological factor potential. suspected. Frequent vomitting throughout the day, most induced with movement. Bladder mass associated with hydronephrosis, she just had cystoscopy with biopsy 04/21, and results unkown. Progressing memory loss. ? PMHX: All Active Problems?(Updated 05/02/23 @ 21:45 by Phong Wise) Discharge planning issues (Acute) DVT prophylaxis (Acute) Acute hypokalemia (Acute) Laceration of scalp (Acute) Bladder mass (Acute) Hydronephrosis (Acute) Headache (Acute) Nausea & vomiting (Acute) Gastritis (Acute) Fall (Acute) Weakness (Acute) Concussion (Acute) Medical History? Breast CA leftHTN (hypertension) Memory problem per patient Surgical History? H/O mastectomy BilatHistory of shoulder surgery S/P hernia repair Social History/Home Situation: Currently living with ex-. 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 Reports she was walking normally about 1 month ago, must recently has been using a SPC. Lives in a two story home, but resides on single level, with bathroom on same floor. Current Functional Limitations: Unable to ambulate or change position in bed due to nausea/vomiting and dizziness. Equipment Owned/DME: SPC Subjective: Reporting increasing frequency of falls, and poor memory over the past few months. Her legs have been giving way on her, she usually can feel it coming - it feels like the floor is giving way underneath her. She usually falls to the left or right and can't control it. Recent onset of R UE and R LE tremor. She has had history of vertigo, but this feels much different. She feels floaty - hard for her to describe. Admits to cognitive changes, and difficulty describing her condition. She does not recall the most recent fall she had. Objective: General Observation: Lying reclined in hospital bed. IV R cubital fossa. Tremor of R UE and R LE. Mental Status: Alert to person, place and time. Poor memory of recent events. Very articulate and aware of person during my time with her. Pain: Headache, but unable to give a number. Vital Signs: Stable per nursing BP 118/76, HR 89 ROM: Right Upper Extremity: Shoulder elevation of 130 deg scapular plane with pain, she thinks she fell on her right shoulder. Otherwise R elbow, wrist and digits WNL Left Upper Extremity: WNL Right Lower Extremity: WNL Left Lower Extremity: WNL Strength: Right Upper Extremity: Ava flex 3+/5 w pain, abd 3+/5 w pain. Otherwise R UE WNL Left Upper Extremity: WNL Right Lower Extremity: Demonstrated 5/5 throughout toes and ankles, knee and hip demonstrating at least 3/5 - nausea induced with attempt of testing due to movement Left Lower Extremity: Demonstrated 5/5 throughout toes and ankles, knee and hip demonstrating at least 3/5 - nausea induced with attempt of testing due to movement Demonstrating strength ability to perform B SLR, and mini bridge to get bed locke under her when lying in bed. Sensation: WNL Bed Mobility/Transfers: Attempt of change of position in bed produced nauseau - patient eventually requests to stop, but did provide good effort. Sits up in bed, and then returns to reclined with poor motor control, shift weight to left and unable to coordinate her trunk movement. Not able to assess mobility otherwise, limited by mobility. Will attempt later today, or tomorrow. Gait: Unable Balance: Unable to assess. Special Tests: Mobility Limitations Standardized Measure [facility]-PAC 6 clicks Basic Mobility Inpatient Short Form: 100% disability VOR testing: negative VOR cancellation: Struggles to maintain eye focus on moving object, but moves head. Questionable nystagmus. Unable to perform [place] due intolerance to supine position. Informed Consent/Education: Patient instructed in purpose of PT consult and plan of care. Assessment: Patient is a 62 year old female referred to physical therapy services with the diagnosis of LE weakness and falls, with question of neurogeneration process. Patient does demonstrate neurological impairments of R UE and LE tremor, nauseau and dizziness with attempt of movement, and inability to cancel vestibular occular reflex during todays evaluation, in presence of reported memory loss and frequency increase of falls, with poor proprioception of LE's. Patient presents with clinical signs and symptoms consistent with neurological changes, per the above findings, allowing for functional inability to transfer, ambulate, or perform bed mobility. AMPAC score 100% disability. She requires skilled PT service to attempt functional mobility as we hopefully anticipate her condition to improve with medical care, and provide skilled treatment to restore her functional transfer and ambulation ability, and safety with functional tasks. Patient is assessed as a Moderate 53011 complexity based on the above history, examination, evolving presentation, and moderate decision making. Goals: Goals X1 week 1. Supine-Sit supervision 2. Sit-Supine supervision 3. Sit-Stand supervision 4. Stand-Sit CGx1 5. Bed-Chair CGx1 6. Chair-Bed CGx1 7. Gait CGx1 8. Stairs CHx1 9. Independent with home exercise program 10. Balance Fair with use of AD with dynami movements, stable and good with static movements. Plan of Care/Treatment Plan: 1-2x/day, 7 days/week x 1 week. Plan of care has been reviewed with the SHANK RANDER providing the service under Physical Therapy direction. Initiate Physical Therapy intervention for strengthening, bed mobility, transfers, gait, stairs, balance training, use of assistive device. Ongoing evaluation of balance and transfer ability as her condition hopefully improves over the course of coming days. DISCHARGE RECOMMENDATIONS: SNF for continued rehabilitation TREATMENT CODE/TIME: 80592, 30 min, 8:30-9:20
--- NOTE | 2023-05-03 13:50 | PDOC.CMIN ---
Date of service: 05/03/23 Time of Service: 14:07 Care Management Initial Assmt Initial Assessment REASON FOR HOSPITALIZATION:: Hypokalemia, weakness, frequent falls PREVIOUS FUNCTIONAL STATUS/SOCIAL/FAMILY SUPPORTS:: Shannon lives in [facility] with her ex , Issa, who is assisting her currently with her ADL's. She was independent with ADL's until recently, as she has states that she has been falling at home, and has been having difficulty with her memory. She has three adult children, two of which live locally, and one lives out of state. CURRENT FUNCTIONAL STATUS:: Shannon was lying in bed when CM met with her. She stated that she has been falling at home, and has quickly declined, not being able to ambulate. CM discussed discharge considerations, and she stated that she is agreeable to go to rehab if PT feels it is appropriate. She stated that PT did not work with her very long today because she was not well enough to get out of bed. Shannon stated that she would prefer to remain local, and is interested in [facility]. CM verified her insurance, which she stated is [facility]. CM provided information about the process for going to rehab, including limitations of insurance benefits; [facility] will pay for 30 days of rehab. Per report, Shannon is awaiting a neurology consult, which will likely happen on Friday. CM will continue to follow. ADVANCE DIRECTIVES:: Not on file, CM will offer forms. Has patient been provided with info about the portal/API?: Yes Did the patient sign up for the portal?: Yes CODE STATUS:: Full Code INSURANCE COVERAGE / FINANCIAL ISSUES:: [facility] CURRENT HOME/COMMUNITY SERVICES/EQUIPMENT:: Her ex , Issa helps support her at home currently. PRIMARY CARE PHYSICIAN:: Lyubov Delgado POTENTIAL DISCHARGE NEEDS:: Possible SNF placement vs increased support at home, evaluations for further needs, follow up appointments. PATIENT/FAMILY EDUCATION NEEDS:: Review discharge instructions and limitations, discussion of self care needs including ask me three. ANTICIPATED BARRIERS TO DISCHARGE:: None. TRANSPORTATION:: To be determined by disposition. PLAN:: Anticipate Shannon will return home with supports vs SNF for continued rehabilitation. Her transport will depend on her disposition, likely private vehicle by family vs facility w/c van. She will follow up with her PCP and discharge plan of care. CM will continue to follow. PFSH All Active Problems (Updated 05/02/23 @ 21:45 by Phong Wise) Discharge planning issues (Acute) DVT prophylaxis (Acute) Acute hypokalemia (Acute) Laceration of scalp (Acute) Bladder mass (Acute) Hydronephrosis (Acute) Headache (Acute) Nausea & vomiting (Acute) Gastritis (Acute) Fall (Acute) Weakness (Acute) Concussion (Acute) Medical History Breast CA left HTN (hypertension) Memory problem per patient Surgical History H/O mastectomy Bilat History of shoulder surgery S/P hernia repair Family History (Updated 05/02/23 @ 21:31 by Phong Wise) Father Hypokalemia Mother Schizophrenia Cancer Liver Brother Heart disease Social History (Updated 05/02/23 @ 21:29 by Phong Wise) Smoking/Tobacco Use Status: Former Tobacco Use Smoking risk assessment performed?: Yes Alcohol Intake: former Drug use: Socially Substance use type: marijuana Details: MARIJUANA TONIGHT Housing: house Do you feel safe at home: Yes Do you feel safe in your relationship?: Yes Additional Social history: Was living and working at [employer] in [place], [place], recently closed , but went to live with ex Issa crenshaw 04/08 ED visit. 3 daughters, two in [place]
--- NOTE | 2023-05-03 14:38 | PGE_ITS ---
Date of Service Date of service: 05/03/23 Time of Service: 12:38 Assessment and Plan Assessment and plan (1) Acute hypokalemia: Status: Acute Assessment and plan: 3.8 today, (2) Memory problem: Assessment and plan: Pending additional labs including B12, RPR, HIV, UDS, ESR. Pending consult Neurology (3) Headache: Status: Acute Assessment and plan: See above, this may be a part of a neurological disorder. Per history this started after her 04/08 fall suggesting this could simply be post-traumatic, but headache was a complaint at her 03/12 visit as well. Consulting neurology. (4) Bladder mass: Status: Acute Assessment and plan: Associated with hydronephrosis, but the hydroneprosis is 2-3 years old per urology. She just had cystoscopy with biopsy 04/21, and I don't see results. (5) HTN (hypertension): Assessment and plan: BP - continues to be hypertensive 150-160/90-100 (6) Nausea & vomiting: Status: Acute Assessment and plan: Seems associated with her neurologic symptoms. See above. Treat with metoclopramide prn, ondansetron, and lorazepam (7) DVT prophylaxis: Status: Acute Assessment and plan: LMWH given decreased mobility and recent trauma (8) Discharge planning issues: Status: Acute Assessment and plan: Pending placement given falls and cognitive decline. PT to assess safety/mobility Subjective Subjective Patient reports: no new complaints, voiding w/o difficulty (indwelling urinary catheter), no bowel movement, nausea and vomiting; denies tolerating liquids well, tolerating a regular diet, diarrhea or shortness of breath Interval history since last seen: Sleeping, states ifs feeling better when woken up, IVF infusing Exam Narrative Exam Narrative: GEN: Alert and oriented, no acute distress, sleeping prior to exam HEENT: Head with closed laceration right parietal scalp. Conjunctiva clear, no icterus. PEERL, EOMI. no nystagmus. no rhinorrhea. MMM, OP benign. Neck is supple with normal ROM, no masses or lymphadenopathy, trachea midline LUNGS: CTAB with normal effort CV: RRR with no murmurs, gallops, or rubs. ABD: +BS, soft, non-distended EXT: no cyanosis, clubbing, or edema MSK: No joint redness or swelling NEURO: CN 2-12 grossly intact. Normal movement of 4 extremities with symmetrical strength in LE. PSYCH: slightly anxious mood and affect, flat, Objective Last Vital Signs Temp 37.2 C 05/04/23 11:24 Pulse 73 05/04/23 11:24 Resp 18 05/04/23 11:24 BP 169/109 H 05/04/23 11:24 Pulse Ox 97 05/04/23 11:24 Laboratory Results - last 24 hr 05/04/23 05/04/23 06:39 06:39 WBC 6.71 RBC 4.12 Hgb 12.5 Hct 37.1 MCV 90 MCH 30.3 MCHC 33.7 RDW 13.8 Plt Count 214 MPV 9.3 Immature Gran % 0.3 Neutrophils % 65.5 Lymphocytes % 23.7 Monocytes % 8.9 Eosinophils % 1.3 Basophils % 0.3 Nucleated RBC % 0.0 Absolute Neutrophils 4.39 Absolute Lymphocytes 1.59 Absolute Monocytes 0.60 Absolute Eosinophils 0.09 Absolute Basophils 0.02 Sodium 146 H Potassium 3.8 Chloride 111 H Carbon Dioxide 27.3 Anion Gap 7.7 BUN 7 Creatinine 1.0 Est GFR (CKD-EPI 2020) 63.70 Glucose 102 Calcium 9.3 Magnesium 1.5 L Time Spent with Patient Time Spent with Patient: 35-49 minutes Time was spent: preparing to see the patient(eg.review tests), ordering medications,tests, procedures, referring, communicating with other health residential child care counselor, indepentently interpreting results, counseling the patient and care coordination
[2023-05-03] MEDS: Potassium Chloride 20 MEQ TABCR 40 MEQ PO (15:09)
[2023-05-03] MEDS: POTASSIUM CHLORIDE 20 MEQ/100 ML BAG 50 MEQ IVPB ×2 (15:09→16:28)
[2023-05-03] MEDS: Ondansetron O.D.T. 4 MG TABEF PO (16:28)
[2023-05-03] MEDS: LORazepam 2 MG/ML VIAL 1 MG IVP (16:35)
[2023-05-03] MEDS: Ondansetron 4 MG/2 ML VIAL IVP (16:35)
[2023-05-03] MEDS: Normal Saline 1,000 ML 125 ML IV (17:12)
[2023-05-04] VITALS (9 sets, daily range): BP systolic 145–171; BP diastolic 97–122; PULSE 73–88; RESP 18–20; TEMP 36.9–37.3; O2SAT 94–98
[2023-05-04 07:05] LABS: Abs Immature Grans 0.02 10^3/uL (0.0-0.06); Absolute Basophil Count 0.02 10^3/uL (0.0-0.2); Absolute Eosinophil Count 0.09 10^3/uL (0.0-0.7); Absolute Lymphocyte Count 1.59 10^3/uL (1.2-3.4); Absolute Neutrophil Count 4.39 10^3/uL (1.2-6.7); Basophils % 0.3; Eosinophils % 1.3; HCT 37.1 % (36.0-46.0); HGB 12.5 g/dL (11.2-15.7); Immature Grans % 0.3; Lymphocytes % 23.7; MCH 30.3 pg (27.0-33.0); MCHC 33.7 % (32.0-36.0); MCV 90 fL (80-95); MPV 9.3 fL (8.0-11.0); Monocytes % 8.9; Neutrophils % 65.5; Platelet Count 214 10^3/uL (130-400); RBC 4.12 10^6/uL (3.93-5.22); RDW 13.8 % (11.7-14.6); RDW-SD 45.8 fL; WBC 6.71 10^3/uL (4.4-10.8)
[2023-05-04 07:18] LABS: Anion Gap 7.7 mmol/L (3-11); BUN 7 mg/dL (7-18); CO2 27.3 mmol/L (21.0-32.0); Calcium 9.3 mg/dL (8.5-10.1); Chloride 111 mmol/L (98-107); Glucose 102 mg/dL (74-106); Magnesium 1.5 mg/dL (1.8-2.4); Potassium 3.8 mmol/L (3.5-5.1); Sodium 146 mmol/L (136-145)
[2023-05-04] MEDS: Potassium Chloride 20 MEQ TABCR PO (08:08)
[2023-05-04] MEDS: Ondansetron 4 MG/2 ML VIAL IVP (08:08)
[2023-05-04] MEDS: FLUoxetine 20 MG CAP 60 MG PO (08:09)
[2023-05-04] MEDS: Potassium Chloride 20 MEQ TABCR 40 MEQ PO (08:09)
[2023-05-04] MEDS: Pantoprazole 40 MG TABCR PO (08:09)
[2023-05-04] MEDS: Losartan 50 MG TAB 100 MG PO (08:09)
[2023-05-04] MEDS: Normal Saline Flush 10 ML SYR IVP ×3 (08:10→18:35)
[2023-05-04] MEDS: Spironolactone 25 MG TAB PO (08:10)
[2023-05-04] MEDS: Acetaminophen 325 MG TAB PO (10:02)
--- NOTE | 2023-05-04 10:47 | PT.INTREAT ---
PT Notes Visit Reasons: Hypokalemia, Weakness, Frequent Falls, Head Injury Inpatient Physical Therapy Treatment Note [facility] Date: 05/04/23 PRECAUTIONS: SUBJECTIVE: Pt reports that she has a very bad headache today. OBJECTIVE: THEREX: When asked if pt would like to sit at the edge of the bed for exercises she reports that she is not able and if I would like her to sit at the OOB she can puke on my floor if I would like. Pt while supine in bed completed heel slides x10, hip abd x 10, shoulder rowing x 10, horz abd x 10, and circles x 10 and requested to be done. ASSESSMENT: Pt reports that she is frustrated with her current functional status and is tired of people trying to push her OOB when she can not and reports she is in a foul mood today and is sorry for that. PLAN: Cont as per PT POC as per lois. TREATMENT CODE/TIME: 9:35-9:50 (15) TP
[2023-05-04] MEDS: MAGNESIUM SULFATE 2 GM/50 ML BAG IVPB (11:10)
--- NOTE | 2023-05-04 11:21 | PGE_ITS ---
Date of Service Date of service: 05/04/23 Time of Service: 11:21 Assessment and Plan Assessment and plan (1) Acute hypokalemia: Status: Acute Assessment and plan: In the setting of vomiting, which is likely the acute cause. She does have some chronic hypokalemia and hypertension which raises concern for hyperaldosteronism. SHe is also on chlorthalidone which is clearly co ntributing. I will replace this with spironolactone. Normal magnesium. Replacing with IV fluids given her nausea and vomiting (2) Memory problem: Status: Acute Assessment and plan: I am concerned with her clear memory deficit that has been associated with leg weakness (non-focal on my exam) as well as headache and urinary incontinence. Multiple CTs and and MRI have not revealed bleeding, CVA, mass, or signs of other pathology. NPH in DDx but normal ventrical size. She is not showing signs of infection. This seems to be progressing relatively rapidly over a period of weeks to the point where she is not safe living alone. - getting additional labs including B12, RPR, HIV, UDS, ESR. - I think an LP is warranted, though not c/w acute infection things like prion disease and inflammatory disorders are in the differential. - EEG would be useful - Consult Neurology (3) Headache: Status: Acute Assessment and plan: See above, this may be a part of a neurological disorder. Per history this started after her 04/08 fall suggesting this could simply be post-traumatic, but headache was a complaint at her 03/12 visit as well. Consulting neurology. (4) Bladder mass: Status: Acute Assessment and plan: Associated with hydronephrosis, but the hydroneprosis is 2-3 years old per urology. SHe just had cystoscopy with biopsy 04/21, and I don't see results. (5) HTN (hypertension): Assessment and plan: BP - continues to be hypertensive 150-160/90-100 Amlodipine 5 mg daily started (6) Nausea & vomiting: Status: Acute Assessment and plan: Seems associated with her neurologic symptoms. See above. Treat with metoclopramide prn, ondansetron, scopalamine patch and lorazepam (7) DVT prophylaxis: Status: Acute Assessment and plan: LMWH given decreased mobility and recent trauma (8) Discharge planning issues: Status: Acute Assessment and plan: Pending placement given falls and cognitive decline. PT to assess safety/mobility Subjective Subjective Patient reports: tolerating liquids well, voiding w/o difficulty (indwelling urinary cath out), nausea and afebrile; denies tolerating a regular diet, bowel movement, diarrhea, vomiting or shortness of breath Interval history since last seen: Shannon is supine in bed, room dark, asking lights are kept off, continues to complain of nausea, has hospital gown off and using it to catch emesis, blue vomit bag right beside her. She has no clothes on and barely covered with sheet only. States she is comfortable in this state and would not like another hospital gown or blanket. She states she smokes marijuana, however has not used it in over a week and has never had vomiting from not using marijuana. She is aware of self, place, time, events Exam Narrative Exam Narrative: GEN: Alert and oriented, pleasant and cooperative, gives limited history, doesn't remember recent events over days to weeks. No acute distress at rest. HEENT: Head with closed laceration right parietal scalp. Conjunctiva clear, no icterus. PEERL, EOMI. no nystagmus. no rhinorrhea. MMM, OP benign. Neck is supple with normal ROM, no masses or lymphadenopathy, trachea midline LUNGS: CTAB with normal effort CV: RRR with no murmurs, gallops, or rubs. ABD: +BS, soft, non-distended EXT: no cyanosis, clubbing, or edema MSK: No joint redness or swelling NEURO: CN 2-12 grossly intact. Normal movement of 4 extremities with symmetrical strength in LE. She has bilaterally ~5 beats of clonus, but DTRs 1+ in patella bilaterally, toes downgoing. Sensation normal to light touch, continues to have poor spacial proprioception. She won't stand. Normal speech, good eye contact, Normal coordination. Complete body shaking at rest, but without fever and denies feeling chills, Normal tone. SKIN: No rashes or open wounds. Some bruising from IVs. PSYCH: slightly anxious mood and affect, flat, Objective Last Vital Signs Temp 36.9 C 05/03/23 11:05 Pulse 75 05/03/23 11:05 Resp 18 05/03/23 11:05 BP 149/99 H 05/03/23 11:05 Pulse Ox 96 05/03/23 11:05 Laboratory Results - last 24 hr 05/02/23 05/02/23 05/02/23 15:52 15:52 15:52 WBC 5.69 RBC 4.79 Hgb 14.4 Hct 41.6 MCV 87 MCH 30.1 MCHC 34.6 RDW 13.4 Plt Count 269 MPV 9.2 Immature Gran % 0.2 Neutrophils % 51.1 Lymphocytes % 35.3 Monocytes % 11.8 Eosinophils % 1.2 Basophils % 0.4 Nucleated RBC % 0.0 Absolute Neutrophils 2.91 Absolute Lymphocytes 2.01 Absolute Monocytes 0.67 Absolute Eosinophils 0.07 Absolute Basophils 0.02 ESR PT 10.1 INR 1.0 APTT 25.2 Sodium 140 Potassium 2.8 L* Chloride 100 Carbon Dioxide 27.3 Anion Gap 12.7 H BUN 17 Creatinine 1.0 Est GFR (CKD-EPI 2020) 63.70 Glucose 99 Calcium 9.6 Magnesium 1.8 Total Bilirubin 0.3 AST 13 L ALT 19 Alkaline Phosphatase 50 Troponin I < 50 Total Protein 7.8 Albumin 3.9 Lipase Vitamin B12 Urine Color Urine Clarity Urine pH Ur Specific Hurley Urine Protein Urine Ketones Urine Blood Urine Nitrite Urine Bilirubin Urine Urobilinogen Ur Leukocyte Esterase Urine RBC Urine WBC Ur Epithelial Cells Urine Crystals Urine Bacteria Urine Casts Urine Mucus Ur Culture Indicated? Urine Glucose Urine Opiates Screen Urine Methadone Screen Ur Barbiturates Screen Ur Tricyclics Screen Ur Amphetamines Screen U Benzodiazepines Scrn Urine Cocaine Screen Ur THC Screen Add-On Test Request 05/02/23 05/02/23 05/02/23 15:52 16:33 17:25 WBC RBC Hgb Hct MCV MCH MCHC RDW Plt Count MPV Immature Gran % Neutrophils % Lymphocytes % Monocytes % Eosinophils % Basophils % Nucleated RBC % Absolute Neutrophils Absolute Lymphocytes Absolute Monocytes Absolute Eosinophils Absolute Basophils ESR PT INR APTT Sodium Potassium Chloride Carbon Dioxide Anion Gap BUN Creatinine Est GFR (CKD-EPI 2020) Glucose Calcium Magnesium Total Bilirubin AST ALT Alkaline Phosphatase Troponin I Total Protein Albumin Lipase 35 Vitamin B12 Urine Color Yellow Urine Clarity Clear Urine pH 5.5 Ur Specific Hurley 1.015 Urine Protein Negative Urine Ketones Negative Urine Blood Trace-intact H Urine Nitrite Negative Urine Bilirubin Negative Urine Urobilinogen 0.2 Ur Leukocyte Esterase Negative Urine RBC 0-2 Urine WBC 0-2 Ur Epithelial Cells Few Urine Crystals Negative Urine Bacteria Negative Urine Casts Negative Urine Mucus Negative Ur Culture Indicated? No Urine Glucose Negative Urine Opiates Screen Urine Methadone Screen Ur Barbiturates Screen Ur Tricyclics Screen Ur Amphetamines Screen U Benzodiazepines Scrn Urine Cocaine Screen Ur THC Screen Add-On Test Request DONE 05/03/23 05/03/23 05/03/23 04:21 07:50 07:58 WBC RBC Hgb Hct MCV MCH MCHC RDW Plt Count MPV Immature Gran % Neutrophils % Lymphocytes % Monocytes % Eosinophils % Basophils % Nucleated RBC % Absolute Neutrophils Absolute Lymphocytes Absolute Monocytes Absolute Eosinophils Absolute Basophils ESR 21 PT INR APTT Sodium 142 Potassium 3.1 L Chloride 106 Carbon Dioxide 26.9 Anion Gap 9.1 BUN 11 Creatinine 1.0 Est GFR (CKD-EPI 2020) 63.70 Glucose 127 H Calcium 8.8 Magnesium Total Bilirubin AST ALT Alkaline Phosphatase Troponin I Total Protein Albumin Lipase Vitamin B12 557 Urine Color Urine Clarity Urine pH Ur Specific Hurley Urine Protein Urine Ketones Urine Blood Urine Nitrite Urine Bilirubin Urine Urobilinogen Ur Leukocyte Esterase Urine RBC Urine WBC Ur Epithelial Cells Urine Crystals Urine Bacteria Urine Casts Urine Mucus Ur Culture Indicated? Urine Glucose Urine Opiates Screen Negative Urine Methadone Screen Negative Ur Barbiturates Screen Negative Ur Tricyclics Screen Negative Ur Amphetamines Screen Negative U Benzodiazepines Scrn Negative Urine Cocaine Screen Negative Ur THC Screen Negative Add-On Test Request Time Spent with Patient Time Spent with Patient: 25-34 minutes Time was spent: preparing to see the patient(eg.review tests), obtaining and/or reviewing separately otained hiistory, ordering medications,tests, procedures, referring, communicating with other health senior resident care director, indepentently interpreting results, counseling the patient and care coordination
[2023-05-04] MEDS: LORazepam 2 MG/ML VIAL 1 MG IVP ×2 (11:32→18:35)
[2023-05-04] MEDS: Metoclopramide 10 MG/2 ML VIAL IVP ×2 (11:33→18:36)
[2023-05-04] MEDS: Scopolamine 1 MG/3 DAYS PATCH TD (13:42)
[2023-05-04] MEDS: amLODIPine 5 MG TAB PO (13:58)
[2023-05-05] MEDS: Ondansetron 4 MG/2 ML VIAL IVP ×3 (06:51→19:47)
[2023-05-05 07:16] LABS: Abs Immature Grans 0.02 10^3/uL (0.0-0.06); Absolute Basophil Count 0.04 10^3/uL (0.0-0.2); Absolute Eosinophil Count 0.06 10^3/uL (0.0-0.7); Absolute Lymphocyte Count 1.57 10^3/uL (1.2-3.4); Absolute Monocyte Count 0.55 10^3/uL (0.1-0.8); Absolute Neutrophil Count 4.75 10^3/uL (1.2-6.7); Basophils % 0.6; Eosinophils % 0.9; HCT 40.3 % (36.0-46.0); HGB 13.6 g/dL (11.2-15.7); Immature Grans % 0.3; Lymphocytes % 22.5; MCHC 33.7 % (32.0-36.0); MCV 89 fL (80-95); MPV 9.2 fL (8.0-11.0); Monocytes % 7.9; Neutrophils % 67.8; Platelet Count 234 10^3/uL (130-400); RBC 4.54 10^6/uL (3.93-5.22); RDW 13.5 % (11.7-14.6); RDW-SD 44.4 fL; WBC 6.99 10^3/uL (4.4-10.8)
[2023-05-05 07:31] LABS: Anion Gap 11.3 mmol/L (3-11); BUN 6 mg/dL (7-18); CO2 28.7 mmol/L (21.0-32.0); CREATININE 0.9 mg/dL (0.55-1.02); Calcium 9.9 mg/dL (8.5-10.1); Chloride 103 mmol/L (98-107); Estimated GFR 72.28 (mL/min/1.73m2); Glucose 108 mg/dL (74-106); Magnesium 1.5 mg/dL (1.8-2.4); Potassium 3.6 mmol/L (3.5-5.1); Sodium 143 mmol/L (136-145)
[2023-05-05] MEDS: amLODIPine 5 MG TAB PO (08:16)
[2023-05-05] MEDS: Losartan 50 MG TAB 100 MG PO (08:16)
[2023-05-05] MEDS: FLUoxetine 20 MG CAP 60 MG PO (08:17)
[2023-05-05] MEDS: Metoclopramide 10 MG/2 ML VIAL IVP ×2 (08:17→15:22)
[2023-05-05] MEDS: Pantoprazole 40 MG TABCR PO (08:18)
[2023-05-05] MEDS: Potassium Chloride 20 MEQ TABCR 40 MEQ PO (08:18)
[2023-05-05] MEDS: Spironolactone 25 MG TAB PO (08:19)
[2023-05-05 11:42] LABS: Syphilis Serology (RPR) Negative (Negative)
--- NOTE | 2023-05-05 11:44 | PT.INTREAT ---
Date of service: 05/05/23 Time of Service: 11:04 PT Notes Visit Reasons: Hypokalemia, Weakness, Frequent Falls, Head Injury Inpatient Physical Therapy Treatment Note [facility] Date: 05/05/23 PRECAUTIONS: Fall, standard, activity as tolerated, extremely dizzy SUBJECTIVE: Patient supine in bed, unsure if she will be able to participate in therapy due to nausea and dizziness, but willing to try. OBJECTIVE: PAIN: none reported BED MOBILITY/TRANSFERS Rolling L/R: standby Supine-sit: standby Sit-supine: min assist Sit-stand: CGA Stand-sit: mod assist for safety Bed-Chair: min assist Chair-bed: min assist THERACT: Transfer training including bed to chair, chair to bed with verbal and tactile cues for limb placement NEURO RICH: Static and dynamic seated balance training including feed forward techniques such as reaching outside base of support THEREX: Heel slides 2x10, short arc quads 2x10, bridges 2x5 ASSESSMENT: Patient very dizzy, very nauseous throughout therapy. Tolerates sitting up better today than in the past few days. PLAN: Continue global strengthening per plan of care within patient tolerance. TREATMENT CODE/TIME: 70506 Neuro 12 minutes, 70285 Ther Act 15 minutes beginning at 11:04, [id number] ther ex 14 minutes beginning at 15:19
--- NOTE | 2023-05-05 11:46 | PDOC.CMPRO ---
Date of service: 05/05/23 Time of Service: 11:46 Care Management Progress Note Progress Note Text Progress Note Text: S/O: Shannon was lying in bed when CM met with her. She stated that she is not feeling well today, but did attempt to work with PT briefly. CM faxed her referral to [facility] today, which is currently under review. She has a neurology consult scheduled for this afternoon. CM will continue to follow. A: Shannon is a 62 year old female admitted to [facility] on 05/02/23 for hypokalemia, weakness, frequent falls. P: Shannon will likely transition to a SNF for short term rehab; referral is sent to [facility] at her request. Her transportation will depend on her disposition. She will follow up with her PCP and discharge plan of care. CM will continue to follow.
[2023-05-05] MEDS: LORazepam 2 MG/ML VIAL 1 MG IVP ×2 (11:57→19:47)
[2023-05-05] MEDS: MAGNESIUM SULFATE 2 GM/50 ML BAG IVPB (11:58)
[2023-05-05 12:28] LABS: HIV-1/2 Ag & Ab Screen Negative (Negative)
[2023-05-05] MEDS: Acetaminophen 325 MG TAB PO (15:21)
[2023-05-05] MEDS: Enoxaparin 40 MG/0.4 ML SYR SC (15:21)
[2023-05-05 15:28] VITALS: BP 144/96; PULSE 85; RESP 18; TEMP 37.3; O2SAT 96
--- NOTE | 2023-05-05 17:05 | W.NEUROCONSU ---
Date of service: 05/05/23 Time of Service: 16:10 Assessment and Plan Assessment and plan (1) Headache: Status: Acute (2) Nausea & vomiting: Status: Acute (3) Weakness: Status: Acute (4) Fall: Status: Acute (5) Concussion: Status: Acute (6) Memory problem: Status: Acute Assessment and plan: Ms. Brock presents with ~2month decline including daily headaches, dizziness, weakness, memory changes, urinary incontinence, insomnia, anxiety, ?vision changes. Though some of these symptoms may have been occurring longer, particularly the daily headaches and urinary incontinence. It's unclear if all of these symptoms are related to a single etiology; or if she has multiple issues occurring at the same time. Her neurological exam is significant for cognitive and memory difficulties and generalized weakness with more focal L leg weakness. No obvious findings of myelopathy or peripheral neuropathy, though exam is limited by her mental status. I did not try to get her up to walk (she declined regardless), but PT has also been unable to get her up. Differential remains broad including NPH (ventricles appear enlarged enough to me to warrant further work-up), concussion(s) (known concussion at this time, but unknown if she had previous), peripheral vertigo independently or secondary to concussion, other dizziness such as OH, dementia - rapidly progressive or otherwise, structural brain lesion not previously seen, encephalitis such as autoimmune or paraneoplastic, CJD or other infectious etiology, other. Work-up: -Given further decline and now with focal weakness, I think it would be reasonable to repeat brain MRI w/wo. -Lab testing: PINKY, RF, pareneoplastic panel -LP. Would preferably do high-volume tap to see if improvement in gait/cognition, but LP team here not amenable to performing. Would however check cell count, glucose, protine, gram stain/cx, VDRL, HSV1/2, paraneoplastic panel, RT-QuIC. If results negative, would recommend outpatient referral to [facility] or [facility] for high-volume tap vs lumbar drain for evaluation of NPH. Treatment: She otherwise appears to have a concussion and daily headaches, though these preceded the current concussion; all complicated by medication overuse. For acute concussion, I recommend NAC 4000mg x 1, then 2000mg BID x 3 days, then 1500mg BID x 3 days. ADRs discussed. She was sleeping for me today and somewhat drowsy, so discussed starting Depakote 250mg BID with her for migraine prevention s/p concussion. ADRs discussed. If truly not sleeping at night, could consider switching to amitriptyline or doxepin HS for migraine ppx and to help sleep. Continue PT/OT. History of Present Illness History of Present Illness Chief Complaint: AMS, falls Narrative: Handedness: right. HPI: Ms. Brock is a 62 year-old woman with remote breast cancer s/p mastectomy, hypertension, GERD, anxiety. Ms. Brock was admitted on 05/02/23 after presenting s/p unwitnessed fall with unknown LOC with R parietal lac - with impaired mental status, emesis, and generalized weakness found to have low potassium. 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 She has had 4 prior ER visits in the last 2 months as summarized here by Dr. Wies: 03/07/23 presented with very high blood pressure and chest pain, negative troponins, EKG, POC echo, and CTA of chest.? Treated for UTI.? Lyme negative. 04/08/23:? Presented with one day of nausea and vomiting and RLQ abdominal pain and headaches.? One month of fatigue noted.? Labs and CT A/P done.? Bilateral hydronephrosis and bladder wall density noted.? Colitis in rectosigmoid colon also noted, but no diarrhea.? Normal non-enhanced brain CT. 04/09/23 presented with vomiting blood, given pantoprazole and plan outpatient endoscopy. 04/21/23 presented with falls, hit head.? Complained of bilateral leg weakness and multiple falls at home, headache.? Negative CT head and cervical spine.? She also had some back pain and CT C/A/P also done with was unrevealing. In regards to the the hydronephrosis, this was known and followed at [facility]. She underwent cystocsopy on 04/21/23 for the bladder mass and it appears per report no mass seen once inside so no biopsy done. I was able to review her PCP records from [facility]. Some notes as below: -chlorthalidone 25mg daily started in Sep 2022 along with K supplement; in addition to losartan 100mg daily -referred to pelvic floor PT in Sep 2022 for urinary incontinence x a few months -Concerta 18mg QOD reduced to methylphenidate 10mg daily in December 2022 to see if this reduces her BP -at 03/21/23 visit, given new Rx amitriptyline 10mg HS for increasing insomnia, OLIVER, widespread pain - did she take this??? unknown Shannon was alone in her room today. Sleeping but easily awakened. She had a difficult time recalling any of her recent medical history and unable to tell me how long she has been feeling unwell. She notes daily headaches for at last 1 year if not longer. Notes headaches are bitemporal, but then later noted occipital headaches. She uses APAP 1000mg 1-2x daily prn which she notes helps her headaches. She has nausea and vomiting which she initially said was not related to headache, but then said was related to her headaches. She reports insomnia, but is unclear how much sleep she gets, though notes in the past she would typically get 6-8hr. She is unable to tell me when she started having balance problems. She denies numbness in her feet. She states that she has neck and low back pain at times, but unable to give me a significant history of either. She has been referred to [facility] Neurology and has appointment in Sep 2023. She stopped driving last week at recommendations of her PCP. Current Work-up: -CTH (05/02/23): generalized atrophy with enlarged ventricles that appears more than expected in my opinion. I reviewed these images personally and this is my personal interpretation. -Labs (05/02/23): W 5.69, ESR 21, Na 140, K 2.8 -> 3.8, Cr 1.0, gluc 99, Ca 9.6, Mg 1.8, LFTs ok, trop x1 neg, lipase 25, TSH 2.12, B12 557, UA neg, UDS neg, RPR neg, HIV neg Previous/other recent testing: -MRI brain w/o (04/23/23): No acute findings. Mild-moderate generalized atrophy. Ventricles appear slighlyt enlarged to me. No overly significant vascular findings. I reviewed these images personally and this is my personal interpretation. -Lyme/tick panel neg (03/12/23 and 04/08/23) -CT C/A/P w/o (04/21/23): No acute findings. Mild thickening of the wall of the sigmoid colon which may represent colitis. -CT A/P w/ (04/08/23): 1. ...prominent bilateral hydronephrosis above the ureteropelvic junctions bilaterally.? Mid-lower ureters are not dilated.? However, there is asymmetric enhancing mural density in left side of the urinary bladder which is either related to cystitis or neoplasm.? Recommend urology consultation for this finding. 2. There is a colitis pattern in the rectosigmoid noted. 3. Small amount of free fluid in the pelvis. -CTA chest (03/12/23): No vascular findings. PFSH All Active Problems (Updated 05/05/23 @ 20:51 by Cailin Aguilar MD) Memory problem (Acute) per patient Discharge planning issues (Acute) DVT prophylaxis (Acute) Acute hypokalemia (Acute) Laceration of scalp (Acute) Bladder mass (Acute) Hydronephrosis (Acute) Headache (Acute) Nausea & vomiting (Acute) Gastritis (Acute) Fall (Acute) Weakness (Acute) Concussion (Acute) Medical History Breast CA left HTN (hypertension) Memory problem per patient Surgical History H/O mastectomy Bilat History of shoulder surgery S/P hernia repair Family History (Updated 05/02/23 @ 21:31 by Phong Wise) Father Hypokalemia Mother Schizophrenia Cancer Liver Brother Heart disease Social History (Updated 05/02/23 @ 21:29 by Phong Wise) Smoking/Tobacco Use Status: Former Tobacco Use Smoking risk assessment performed?: Yes Alcohol Intake: former Drug use: Socially Substance use type: marijuana Details: MARIJUANA TONIGHT Housing: house Do you feel safe at home: Yes Do you feel safe in your relationship?: Yes Additional Social history: Was living and working at [employer] in [place], [place], recently closed , but went to live with ex Issa crenshaw 04/08 ED visit. 3 daughters, two in [place] Visit Medication and Allergies Active Medications Generic Name Dose Route Start Last Admin Trade Name Lmq PRN Reason Stop Dose Admin Acetaminophen 0 mg 05/02/23 20:10 05/05/23 15:21 Acetaminophen 325 Mg Tab PO 650 mg Q4H PRN PRN Administration Amlodipine Besylate 5 mg 05/05/23 08:30 05/05/23 08:16 Amlodipine 5 Mg Tab PO 5 mg DAILY NABILA Administration Dimethicone/Zinc Oxide 0 gm 05/02/23 20:09 Berkley Protect Cream 142 Gm Tube TP PRN PRN Enoxaparin Sodium 40 mg 05/06/23 08:30 Enoxaparin 40 Mg/0.4 Ml Syr SC DAILY NABILA Fluoxetine HCl 60 mg 05/03/23 08:30 05/05/23 08:17 Fluoxetine 20 Mg Cap PO 60 mg DAILY NABILA Administration Sodium Chloride 1,000 mls @ 125 mls/hr 05/03/23 16:30 05/04/23 07:20 Saline 1000ml Bag IV Infused INFUSION NABILA Infusion Sodium Chloride 500 mls @ 0 mls/hr 05/05/23 14:29 Saline 500ml Bag IV PRN PRN As Directed IV Miscellaneous Supplies 1 each 05/05/23 14:30 Iv Access IV DIRECTED NABILA Lorazepam 1 mg 05/03/23 16:26 05/05/23 11:57 Lorazepam 2 Mg/Ml Vial IVP 1 mg Q4H PRN PRN Administration Losartan Potassium 100 mg 05/03/23 08:30 05/05/23 08:16 Losartan 50 Mg Tab PO 100 mg QAM NABILA Administration Metoclopramide HCl 10 mg 05/02/23 22:03 05/05/23 15:22 Metoclopramide 10 Mg/2 Ml Vial IVP 10 mg Q6H PRN PRN Administration Ondansetron HCl 4 mg 05/03/23 16:25 05/05/23 11:57 Ondansetron 4 Mg/2 Ml Vial IVP 4 mg Q4H PRN PRN Administration Pantoprazole Sodium 40 mg 05/06/23 07:30 Pantoprazole 40 Mg Tabcr PO DAILY@0730 NABILA Potassium Chloride 40 meq 05/04/23 08:30 05/05/23 08:18 Potassium Chloride 20 Meq Tabcr PO 40 meq DAILY NABILA Administration Scopolamine HBr 1 mg 05/04/23 14:00 05/04/23 13:42 Scopolamine 1 Mg/3 Days Patch TD 1 mg Q72H NABILA Administration Sodium Chloride 0 ml 05/05/23 14:29 Normal Saline Flush 10 Ml Syr IVP PRN PRN Spironolactone 25 mg 05/03/23 08:30 05/05/23 08:19 Spironolactone 25 Mg Tab PO 25 mg DAILY NABILA Administration Allergies fosaprepitant Allergy (Unverified 05/02/23 15:35) iodine Allergy (Unverified 05/02/23 15:35) Exam Narrative Exam Narrative: Physical Exam: Gen: Patient of apparent stated age, NAD Head and face: no facial or cranial abnormalities Neck: Supple, no meningismus, no occipital tenderness CV: + S1, S2, RRR, no murmur Resp: CTA B/L Abd: soft, nontender, nondistended Ext: No edema. No clubbing or cyanosis. No bony deformity. Neuro Exam: Language: fluency, naming, repetition, and comprehension intact; Mental Status: see MMSE below; had difficulty relaying recent events Speech: no dysarthria Cranial nerves: Funduscopy: not performed CN II: visual beltrán intact CN III, IV, : extraocular movements intact, no nystagmus, pupils symmetric and reactive to light CN V: face sensation intact to PP CN VII: no facial asymmetry noted CN VIII: hearing intact bilaterally CN IX, X: palate rises symmetrically CN XI: trapezius/SCM 5/5 bilaterally CN XII: protrudes tongue symmetrically Sensory: intact to PP in all extremities; other modalities difficulty due to mental status Motor: bulk and tone intact. Fine motor movements intact bilaterally. No pronator drift. Mild bilateral UE postural tremor without significant action tremor. No asterixis. Strength 4+/5 throughout including the deltoids, biceps, triceps, wrist extensors, hip flexors, knee flexors, knee extensors, ankle flexors, and ankle extensors, slightly weaker in the LLE. Reflexes: hyporeflexic throughout; toes down going bilaterally; Coordination: FTN and HTS intact bilaterally Gait: unable to test without more assistance; she also declined to get up MMSE 1.Orientation a.Place (Country, State, City, Building, Floor) 2/5 (she said she was in [place] at [employer] - when I asked if she was sure she then was able to identify [facility]) b.Time (Year, Season, Month, Date, day of the week) 10/31 (- and then gave up, , may, couldn't guess, Friday - which was the only correct) 2.Immediate Recall (3 objects) 12/27 3.Attention (Serial 7s or spell world backwards) 10/31 (kept giving up, couldn't remember where she left off; I started at 70 and her first answer was 93...no, 83....) 4.Delayed Recall (3 objects) 0 (able to recall only 1/3 with 3 examples) 5.Language a.Naming (watch and pencil) 11/28 b.Repetition 10/27 c.Comprehension (3-step command) 12/27 d.Reading (Close your eyes) DNT e.Writing (sentence) DNT 6.Visuospatial/Executive (copy drawing) DNT TOTAL: 10/22 Results Last Vital Signs Temp 99.1 F 05/05/23 15:28 Pulse 85 05/05/23 15:28 Resp 18 05/05/23 15:28 BP 144/96 H 05/05/23 15:28 Pulse Ox 96 05/05/23 15:28 Labs 05/05/23 06:30 05/05/23 06:30 Labs: Laboratory Results - last 24 hr 05/03/23 05/03/23 05/05/23 07:58 07:58 06:30 WBC RBC Hgb Hct MCV MCH MCHC RDW Plt Count MPV Immature Gran % Neutrophils % Lymphocytes % Monocytes % Eosinophils % Basophils % Nucleated RBC % Absolute Neutrophils Absolute Lymphocytes Absolute Monocytes Absolute Eosinophils Absolute Basophils Sodium 143 Potassium 3.6 Chloride 103 Carbon Dioxide 28.7 Anion Gap 11.3 H BUN 6 L Creatinine 0.9 Est GFR (CKD-EPI 2020) 72.28 Glucose 108 H Calcium 9.9 Magnesium 1.5 L Syphilis Serology Negative HIV 1&2 Ag/Ab, 4th Gen Negative 05/05/23 06:30 WBC 6.99 RBC 4.54 Hgb 13.6 Hct 40.3 MCV 89 MCH 30.0 MCHC 33.7 RDW 13.5 Plt Count 234 MPV 9.2 Immature Gran % 0.3 Neutrophils % 67.8 Lymphocytes % 22.5 Monocytes % 7.9 Eosinophils % 0.9 Basophils % 0.6 Nucleated RBC % 0.0 Absolute Neutrophils 4.75 Absolute Lymphocytes 1.57 Absolute Monocytes 0.55 Absolute Eosinophils 0.06 Absolute Basophils 0.04 Sodium Potassium Chloride Carbon Dioxide Anion Gap BUN Creatinine Est GFR (CKD-EPI 2020) Glucose Calcium Magnesium Syphilis Serology HIV 1&2 Ag/Ab, 4th Gen
--- NOTE | 2023-05-05 17:38 | PGE_ITS ---
Date of Service Date of service: 05/05/23 Time of Service: 17:38 Assessment and Plan Assessment and plan (1) Acute hypokalemia: Status: Acute Assessment and plan: 3.6 today - monitor (2) Concussion: Status: Acute Assessment and plan: See below (3) Memory problem: Status: Acute Assessment and plan: Concussion Pending additional labs including B12, RPR, HIV, UDS, ESR. Neurology saw her and ordered a LP, anesthesia consulted, MRI head w/wo, lab test and for acute concussion, recommended NAC 4000mg x 1, then 2000mg BID x 3 days, then 1500mg BID x 3 days, discussed starting Depakote 250mg BID with her for migraine prevention s/p concussion, will hold for now..? ADRs discussed.? If truly not sleeping at night, could consider switching to amitriptyline or doxepin HS for migraine ppx and to help sleep. Ok to continue APAP prn. NAC was ordered (4) Headache: Status: Acute Assessment and plan: See above, this may be a part of a neurological disorder. Per history this started after her 04/08 fall suggesting this could simply be post-traumatic, but headache was a complaint at her 03/12 visit as well. See neurology consult: differential includes NPH, concussion, peripheral vertigo, dementia, encepalitis, CJD or other infections. (5) Bladder mass: Status: Acute Assessment and plan: Associated with hydronephrosis, but the hydroneprosis is 2-3 years old per urology. She just had cystoscopy with biopsy 04/21, and I don't see results. (6) HTN (hypertension): Assessment and plan: BP - continues to be hypertensive 150-160/90-100 Started Amlodipine 5 mg oral daily; monitor (7) Nausea & vomiting: Status: Acute Assessment and plan: Seems associated with her neurologic symptoms. See above. Treat with metoclopramide prn, ondansetron, and lorazepam No vomiting noted today (8) DVT prophylaxis: Status: Acute Assessment and plan: LMWH given decreased mobility and recent trauma (9) Discharge planning issues: Status: Acute Assessment and plan: Pending placement given falls and cognitive decline. PT assessed safety/mobility today, she wsa able to stand, but not independently and lists to the right. Discussed with Dr Leong Subjective Subjective Patient reports: tolerating liquids well, voiding w/o difficulty and bowel mov ement; denies diarrhea, nausea, vomiting or shortness of breath Interval history since last seen: Patient is very restless and does not want to participate with PT, does not want to keep her IV in, is incontinent of urine and is confrontational with staff. Exam Narrative Exam Narrative: GEN: Alert and oriented, no acute distress, does not know who I am despite many visits HEENT: Head with closed laceration right parietal scalp. Conjunctiva clear, no icterus. PEERL, EOMI. no nystagmus. no rhinorrhea. MMM, OP benign. Neck is supple with normal ROM, no masses or lymphadenopathy, trachea midline LUNGS: CTAB with normal effort CV: RRR with no murmurs, gallops, or rubs. ABD: +BS, soft, non-distended EXT: no cyanosis, clubbing, or edema MSK: No joint redness or swelling NEURO: CN 2-12 grossly intact. Normal movementof 4 extremities with sym metrical strength in LE while in bed, however she is unable to stand independently Objective Last Vital Signs Temp 37.3 C 05/05/23 15:28 Pulse 85 05/05/23 15:28 Resp 18 05/05/23 15:28 BP 144/96 H 05/05/23 15:28 Pulse Ox 96 05/05/23 15:28 Laboratory Results - last 24 hr 05/03/23 05/03/23 05/05/23 07:58 07:58 06:30 WBC RBC Hgb Hct MCV MCH MCHC RDW Plt Count MPV Immature Gran % Neutrophils % Lymphocytes % Monocytes % Eosinophils % Basophils % Nucleated RBC % Absolute Neutrophils Absolute Lymphocytes Absolute Monocytes Absolute Eosinophils Absolute Basophils Sodium 143 Potassium 3.6 Chloride 103 Carbon Dioxide 28.7 Anion Gap 11.3 H BUN 6 L Creatinine 0.9 Est GFR (CKD-EPI 2020) 72.28 Glucose 108 H Calcium 9.9 Magnesium 1.5 L Syphilis Serology Negative HIV 1&2 Ag/Ab, 4th Gen Negative 05/05/23 06:30 WBC 6.99 RBC 4.54 Hgb 13.6 Hct 40.3 MCV 89 MCH 30.0 MCHC 33.7 RDW 13.5 Plt Count 234 MPV 9.2 Immature Gran % 0.3 Neutrophils % 67.8 Lymphocytes % 22.5 Monocytes % 7.9 Eosinophils % 0.9 Basophils % 0.6 Nucleated RBC % 0.0 Absolute Neutrophils 4.75 Absolute Lymphocytes 1.57 Absolute Monocytes 0.55 Absolute Eosinophils 0.06 Absolute Basophils 0.04 Sodium Potassium Chloride Carbon Dioxide Anion Gap BUN Creatinine Est GFR (CKD-EPI 2020) Glucose Calcium Magnesium Syphilis Serology HIV 1&2 Ag/Ab, 4th Gen Time Spent with Patient Time Spent with Patient: 25-34 minutes Time was spent: preparing to see the patient(eg.review tests), obtaining and/or reviewing separately otained hiistory, ordering medications,tests, procedures, referring, communicating with other health care information associate, indepentently interpreting results, counseling the patient and care coordination
[2023-05-05] MEDS: Acetylcysteine 600 MG CAP 3600 MG PO (18:33)
[2023-05-05 20:56] VITALS: BP 162/98; PULSE 85; RESP 16; TEMP 37.6; O2SAT 96
[2023-05-05] MEDS: Divalproex 250 MG TABEC PO (21:23)
--- NOTE | 2023-05-06 | DI.MRI_ITS ---
Exam(s) MR BRAIN WO/W EXAM: MR BRAIN WO/W CLINICAL HISTORY: Altered mental status TECHNIQUE: Multiplanar multisequence MRI of the brain was performed. Both noninfused and contrast i nfused sequences were performed. IV Contrast injected was 18 cc Dotarem. COMPARISON: MR MR BRAIN WO from 04/23/[address] HEAD WO from 05/02/2023 FINDINGS: Sequences are degraded by motion artifact CEREBRAL PARENCHYMA: No evidence of intracranial hemorrhage, mass effect nor shift of midline structu re. No extraaxial fluid collections. Ventricles are not enlarged nor shifted. There is no significant focal signal abnormality in the cerebellar hemispheres nor within the rowan, m idbrain, and thalami. There is some periventricular signal abnormality consistent with chronic small vessel disease and unc hanged from prior MRI scan of 06/15/2023. DWI: No areas of restricted diffusion to suggest acute ischemic event. SWI: No microhemorrhages evident. There are no ring enhancing lesions in the brain. There is no abnormal meningeal enhancement. PITUITARY GLAND: No mass nor parasellar abnormality. No obvious abnormality in the cavernous sinuses. FLOW VOIDS: The expected flow void are noted. No evidence of obvious aneurysm nor obvious vascular ma lformation. PARANASAL SINUSES: The visualized paranasal sinuses appear unremarkable. ORBITS: No obvious abnormal findings. IMPRESSION: 1. No significant acute intracranial findings on this MRI scan of the brain. 2. No abnormal enhancing intracranial findings. There are no ring enhancing lesions in the brain and there is no abnormal meningeal enhancement. 3. Periventricular signal abnormality consistent with chronic small vessel disease is unchanged from MRI scan of 04/23/2023. DATA REPOSITORY:
[2023-05-06 07:14] VITALS: BP 146/90; PULSE 75; RESP 16; TEMP 36.8; O2SAT 97
[2023-05-06] MEDS: Pantoprazole 40 MG TABCR PO (09:00)
[2023-05-06] MEDS: Divalproex 250 MG TABEC PO ×2 (09:01→19:40)
[2023-05-06] MEDS: Acetylcysteine 600 MG CAP 1800 MG PO ×2 (09:01→19:41)
[2023-05-06] MEDS: Losartan 50 MG TAB 100 MG PO (09:01)
[2023-05-06] MEDS: Potassium Chloride 20 MEQ TABCR 40 MEQ PO (09:01)
[2023-05-06] MEDS: Spironolactone 25 MG TAB PO (09:02)
[2023-05-06] MEDS: amLODIPine 5 MG TAB PO (09:02)
[2023-05-06] MEDS: FLUoxetine 20 MG CAP 60 MG PO (09:02)
[2023-05-06 09:03] LABS: Abs Immature Grans 0.02 10^3/uL (0.0-0.06); Absolute Basophil Count 0.03 10^3/uL (0.0-0.2); Absolute Eosinophil Count 0.06 10^3/uL (0.0-0.7); Absolute Lymphocyte Count 1.17 10^3/uL (1.2-3.4); Absolute Monocyte Count 0.47 10^3/uL (0.1-0.8); Absolute Neutrophil Count 3.91 10^3/uL (1.2-6.7); Basophils % 0.5; Eosinophils % 1.1; HCT 37.9 % (36.0-46.0); HGB 13.1 g/dL (11.2-15.7); Immature Grans % 0.4; Lymphocytes % 20.7; MCH 30.3 pg (27.0-33.0); MCHC 34.6 % (32.0-36.0); MCV 88 fL (80-95); MPV 8.9 fL (8.0-11.0); Monocytes % 8.3; Platelet Count 223 10^3/uL (130-400); RBC 4.32 10^6/uL (3.93-5.22); RDW 13.2 % (11.7-14.6); RDW-SD 42.5 fL; WBC 5.66 10^3/uL (4.4-10.8)
[2023-05-06] MEDS: LORazepam 2 MG/ML VIAL 1 MG IVP ×2 (09:07→17:50)
[2023-05-06 09:25] LABS: ALT 18 U/L (14-59); AST 12 U/L (15-37); Albumin 3.2 g/dL (3.4-5.0); Alkaline Phosphatase 47 U/L (46-116); Anion Gap 11.3 mmol/L (3-11); BUN 6 mg/dL (7-18); Bilirubin, Total 0.5 mg/dL (0.2-1.0); CO2 24.7 mmol/L (21.0-32.0); Calcium 8.9 mg/dL (8.5-10.1); Chloride 104 mmol/L (98-107); Glucose 131 mg/dL (74-106); Magnesium 1.3 mg/dL (1.8-2.4); Potassium 3.2 mmol/L (3.5-5.1); Sodium 140 mmol/L (136-145); Total Protein 6.9 g/dL (6.4-8.2)
[2023-05-06] MEDS: Gadoterate meglumine 20 ML VIAL IVP (10:10)
--- NOTE | 2023-05-06 11:36 | PT.INTREAT ---
Date of service: 05/06/23 Time of Service: 11:12 PT Notes Visit Reasons: Hypokalemia, Weakness, Frequent Falls, Head Injury Inpatient Physical Therapy Treatment Note [facility] Date: 05/06/23 PRECAUTIONS: Fall, standard, activity as tolerated SUBJECTIVE: Patient reports feeling better today, still dizzy but not as nauseous. Reports feeling a throbbing dizziness in the left posterolateral aspect of her head, she indicates an area behind and slightly below her left ear. Less headache today. Sitting up in bed wearing reading glasses. Agreeable to therapy. Afternoon patient seems confused - asks this therapist to turn her tv off because it's beeping, when it was the IV pole beeping. Repeatedly states that she is being told she needs to wait 5 hours before she can urinate, but she really needs to go. Patient has a Cortez catheter in place. This therapist explained, repeatedly, that the bulb that holds the catheter in place can cause the bladder to feel full, and that she doesn't need to pee because there is a catheter is which is draining as it should. Patient is, nonetheless, agreeable to therapy. OBJECTIVE: PAIN: Less today PAIN: c/o headache in the afternoon from not drinking enough. BED MOBILITY/TRANSFERS Rolling L/R: Morning: independent Afternoon: min assist with verbal cues Supine-sit: Morning: standby Afternoon: Unable, and does not want assistance. Sit-supine: Morning: min assist to get left leg into bed Afternoon: mod assist Sit-stand: Morning: CGA Afternoon: unable Stand-sit: Morning: CGA Afternoon: unable NEURO RICH: Patient participated in seated and standing balance activities, including sitting EOB with bilateral UE support, which patient was able to maintain for 20-30 seconds at a time, and standing with bilateral UE support on a FWW, min assist with gait belt to remain upright. Patient was leaning left hard, she stated she was aware. She was unable to correct her alignment despite several attempts at doing so. THER ACT: afternoon patient participates in bed mobility training, repositioning. Attempts to stand but reports marked increase in dizziness and nausea as she attempts to sit up. ASSESSMENT: Patient tolerates therapy well, reports some nausea at end of treatment. PLAN: Continue global strengthening per plan of care. TREATMENT CODE/TIME: 08746 Neuro 16 minutes beginning at 11:12, [id number] Ther Act 14 minutes beginning at 16:28
--- NOTE | 2023-05-06 12:00 | PGE_ITS ---
Date of Service Date of service: 05/06/23 Time of Service: 15:00 Assessment and Plan Assessment and plan (1) Acute hypokalemia: Status: Acute Assessment and plan: 3.2 today - repleted (2) Concussion: Status: Acute Assessment and plan: See below (3) Memory problem: Status: Acute Assessment and plan: Concussion Pending additional labs including B12, RPR, HIV, UDS, ESR. LP pending, anesthesia consulted, MRI head w/wo unchanged, Continue NAC 2000mg BID x 3 days, then 1500mg BID x 3 days, Does not know me, although I have been in to see her multiple times, Dr Leong in to see her as well She does not want treatment for anything one min and is trying to remove IVs, cath, then asking for more tx, very confused, demanding and confrontational (4) Urine incontinence: Status: Acute Assessment and plan: Indwelling urinary catheter placed, output > 3000 ml these past two days, clear, pale yellow - ua sent, positive for blood, otherwise negative - urine sodium and osm sent, Serum sodium is normal (5) Headache: Status: Acute Assessment and plan: See above, this may be a part of a neurological disorder. Per history this started after her 04/08 fall suggesting this could simply be post-traumatic, but headache was a complaint at her 03/12 visit as well. See neurology consult: differential includes NPH, concussion, peripheral vertigo, dementia, encepalitis, CJD or other infections. (6) Bladder mass: Status: Acute Assessment and plan: Associated with hydronephrosis, but the hydroneprosis is 2-3 years old per urology. She just had cystoscopy with biopsy 04/21, and I don't see results. (7) HTN (hypertension): Assessment and plan: BP - continues to be hypertensive 150-160/90-100 Continue Amlodipine 5 mg oral daily; monitor (8) Nausea & vomiting: Status: Acute Assessment and plan: Seems associated with her neurologic symptoms. See above. Treat with metoclopramide prn, ondansetron, and lorazepam No vomiting noted today (9) DVT prophylaxis: Status: Acute Assessment and plan: LMWH given decreased mobility and recent trauma (10) Discharge planning issues: Status: Acute Assessment and plan: Pending placement given falls, inability to stand independently and cognitive decline. PT assessed safety/mobility today, she was able to stand, but not independently and lists to the right. Discussed with Dr Leong Subjective Subjective Patient reports: tolerating a regular diet, voiding w/o difficulty (indwelling catheter), bowel movement and afebrile; denies diarrhea, vomiting or shortness of breath Interval history since last seen: Patient in bed semifowlers, in the dark, shades down. Does not allow light to be turned on. Eating rapidly with a spoon from a bowl. States she doesn't know who I am, we have met several times. She stated she wanted to leave, she can leave, however recommended she stay for further work up as she can't currently walk. She is calling nursing every 15 or min to come to her room for multiple complaints. She was asking to go to the bathroom to urinate, but had been incontinent of urine all day - an indwelling urinary catheter was placed for skin and upcoming LP this afternoon. She was in agreement with this being placed and allowed nursing to place it. Clear light urine - spec sent to lab. Exam Narrative Exam Narrative: GEN: Alert and oriented, no acute distress, again, does not know who I am despite many visits HEENT: Head with closed laceration right parietal scalp. Conjunctiva clear, no icterus. PEERL, EOMI. no nystagmus. no rhinorrhea. MMM, OP benign. Neck is supple with normal ROM, no masses or lymphadenopathy, trachea midline LUNGS: CTAB with normal effort CV: RRR with no murmurs, gallops, or rubs. ABD: +BS, soft, non-distended EXT: no cyanosis, clubbing, or edema MSK: No joint redness or swelling NEURO: CN 2-12 grossly intact. Normal movement of 4 extremities with symmetrical strength in BLE, LUE weaker on the left - performed today while in bed she is unable to stand independently Objective Last Vital Signs Temp 36 C L 05/07/23 03:40 Pulse 72 05/07/23 03:40 Resp 15 05/07/23 03:40 BP 128/90 05/07/23 03:40 Pulse Ox 97 05/07/23 03:40 Laboratory Results - last 24 hr 05/06/23 05/06/23 05/06/23 09:01 09:01 14:58 WBC 5.66 RBC 4.32 Hgb 13.1 Hct 37.9 MCV 88 MCH 30.3 MCHC 34.6 RDW 13.2 Plt Count 223 MPV 8.9 Immature Gran % 0.4 Neutrophils % 69.0 Lymphocytes % 20.7 Monocytes % 8.3 Eosinophils % 1.1 Basophils % 0.5 Nucleated RBC % 0.0 Absolute Neutrophils 3.91 Absolute Lymphocytes 1.17 L Absolute Monocytes 0.47 Absolute Eosinophils 0.06 Absolute Basophils 0.03 Sodium 140 Potassium 3.2 L Chloride 104 Carbon Dioxide 24.7 Anion Gap 11.3 H BUN 6 L Creatinine 1.0 Est GFR (CKD-EPI 2020) 63.70 Glucose 131 H Calcium 8.9 Magnesium 1.3 L Total Bilirubin 0.5 AST 12 L ALT 18 Alkaline Phosphatase 47 Total Protein 6.9 Albumin 3.2 L Urine Color Urine Clarity Urine pH Ur Specific [place] Urine Protein Urine Ketones Urine Blood Urine Nitrite Urine Bilirubin Urine Urobilinogen Ur Leukocyte Esterase Urine RBC Urine WBC Ur Epithelial Cells Urine Crystals Urine Bacteria Urine Casts Urine Mucus Ur Culture Indicated? Urine Glucose Urine Opiates Screen Negative Urine Methadone Screen Negative Ur Barbiturates Screen Negative Ur Tricyclics Screen Negative Ur Amphetamines Screen Negative U Benzodiazepines Scrn Negative Urine Cocaine Screen Negative Ur THC Screen Negative 05/06/23 14:58 WBC RBC Hgb Hct MCV MCH MCHC RDW Plt Count MPV Immature Gran % Neutrophils % Lymphocytes % Monocytes % Eosinophils % Basophils % Nucleated RBC % Absolute Neutrophils Absolute Lymphocytes Absolute Monocytes Absolute Eosinophils Absolute Basophils Sodium Potassium Chloride Carbon Dioxide Anion Gap BUN Creatinine Est GFR (CKD-EPI 2020) Glucose Calcium Magnesium Total Bilirubin AST ALT Alkaline Phosphatase Total Protein Albumin Urine Color Yellow Urine Clarity Clear Urine pH 5.5 Ur Specific [place] 1.010 Urine Protein Negative Urine Ketones Negative Urine Blood Moderate H Urine Nitrite Negative Urine Bilirubin Negative Urine Urobilinogen 0.2 Ur Leukocyte Esterase Negative Urine RBC 5-10 H Urine WBC Negative Ur Epithelial Cells Rare Urine Crystals Negative Urine Bacteria Negative Urine Casts Negative Urine Mucus Negative Ur Culture Indicated? No Urine Glucose Negative Urine Opiates Screen Urine Methadone Screen Ur Barbiturates Screen Ur Tricyclics Screen Ur Amphetamines Screen U Benzodiazepines Scrn Urine Cocaine Screen Ur THC Screen Time Spent with Patient Time Spent with Patient: 25-34 minutes Time was spent: preparing to see the patient(eg.review tests), obtaining and/or reviewing separately otained hiistory, ordering medications,tests, procedures, referring, communicating with other health healthcare insurance sales agent, indepentently interpreting results, counseling the patient and care coordination
[2023-05-06] MEDS: MAGNESIUM SULFATE 4 GM/100 ML BAG IVPB (12:24)
[2023-05-06] MEDS: POTASSIUM CHLORIDE 20 MEQ/100 ML BAG 50 MEQ IVPB ×2 (12:26→14:23)
--- NOTE | 2023-05-06 13:01 | PGE_ITS ---
Date of Service Date of service: 05/06/23 Time of Service: 12:20 Assessment and Plan Assessment and plan (1) Headache: Status: Acute (2) Nausea & vomiting: Status: Acute (3) Weakness: Status: Acute (4) Fall: Status: Acute (5) Concussion: Status: Acute (6) Memory problem: Status: Acute Assessment and plan: Ms. Brock presents with ~2month decline including daily headaches, dizziness, weakness, memory changes, urinary incontinence, insomnia, anxiety, ?vision changes. Though some of these symptoms may have been occurring longer, particularly the daily headaches and urinary incontinence. It's unclear if all of these symptoms are related to a single etiology; or if she has multiple issues occurring at the same time. Her neurological exam is significant for cognitive and memory difficulties and generalized weakness with more focal L leg weakness. No obvious findings of myelopathy or peripheral neuropathy, though exam is limited by her mental sta tus. I did not try to get her up to walk (she declined regardless), but PT has also been unable to get her up due to her symptoms. Differential remains broad including NPH (ventricles appear enlarged enough to me to warrant further work-up), concussion(s) (known concussion at this time, but unknown if she had previous), peripheral vertigo independently or secondary to concussion, other dizziness such as [place], dementia - rapidly progressive or otherwise, encephalitis/encephalopathy such as autoimmune or paraneoplastic, CJD or other infectious etiology, other. Work-up: -Lab testing: PINKY, RF, pareneoplastic panel -LP. Unable to do high-volume tap here. Will check opening pressure, cell count, glucose, protien, gram stain/cx, VDRL, HSV1/2, paraneoplastic panel, RT-Q uIC. If results negative, would recommend referral to [facility] [place] [facility] [place] vs lumbar drain for evaluation of NPH. -Is nausea/emesis related to migraine/concussion - or do to other? Not clear. Defer to PCP if there is other testing needed in regards to recurrent emesis. Treatment: She otherwise appears to have a concussion and daily headaches, though these preceded the current concussion; all complicated by medication overuse. -For acute concussion, I recommend NAC 4000mg x 1, then 2000mg BID x 3 days, then 1500mg BID x 3 days. ADRs discussed. She was sleeping for me today and somewhat drowsy, so discussed starting Depakote 250mg BID with her for migraine prevention s/p concussion. ADRs discussed. If truly not sleeping at night, could consider switching to amitriptyline or doxepin HS for migraine ppx and to help sleep -Ok to continue APAP prn. Continue PT/OT. She should f/up in neurology clinic post-discharge. Subjective Subjective Interval history since last seen: Shannno notes ongoing stable headache today. Mild but constant. Did have emesis this am. But just finished lunch and appears comfortable now. No obvious ADRs from med changes. -MRI brain w/wo (05/06/23): No acute or new findings compared to previous on 04/23/23. Stable atrophy with enlarged ventricles - perhaps slightly larger than expected per my view. I reviewed these images personally and this is my personal interpretation. Plan is for LP later today. PT able to get her to stand today with minimal assistance. She was feeling less dizzy. Though had hard lean to L and unable to correct. Exam Narrative Exam Narrative: Physical Exam: Constitutional: Patient of apparent stated age, well nourished, well developed, no acute distress Neuro: MS/Language/Speech: Alert, oriented to person - still thought she was in [place] today; she doesn't recall meeting me yesterday; clear language (fluency and comprehension), no dysarthria Motor: Normal bulk and tone. FMM intact, no pronator drift. 4+/5 strength in bilateral upper and lower extremities, again slightly weaker in LLE. Coordination: Finger to nose performed without dysmetria Objective Last Vital Signs Temp 98.2 F 05/06/23 07:14 Pulse 75 05/06/23 07:14 Resp 16 05/06/23 07:14 BP 146/90 H 05/06/23 07:14 Pulse Ox 97 05/06/23 07:14 Laboratory Results - last 24 hr 05/06/23 05/06/23 09:01 09:01 WBC 5.66 RBC 4.32 Hgb 13.1 Hct 37.9 MCV 88 MCH 30.3 MCHC 34.6 RDW 13.2 Plt Count 223 MPV 8.9 Immature Gran % 0.4 Neutrophils % 69.0 Lymphocytes % 20.7 Monocytes % 8.3 Eosinophils % 1.1 Basophils % 0.5 Nucleated RBC % 0.0 Absolute Neutrophils 3.91 Absolute Lymphocytes 1.17 L Absolute Monocytes 0.47 Absolute Eosinophils 0.06 Absolute Basophils 0.03 Sodium 140 Potassium 3.2 L Chloride 104 Carbon Dioxide 24.7 Anion Gap 11.3 H BUN 6 L Creatinine 1.0 Est GFR (CKD-EPI 2020) 63.70 Glucose 131 H Calcium 8.9 Magnesium 1.3 L Total Bilirubin 0.5 AST 12 L ALT 18 Alkaline Phosphatase 47 Total Protein 6.9 Albumin 3.2 L Time Spent with Patient Time Spent with Patient: 35-49 minutes Time was spent: preparing to see the patient(eg.review tests), referring, communicating with other health customer care representative, indepentently interpreting results, counseling the patient and care coordination
--- NOTE | 2023-05-06 13:20 | CMPROGNOTE_ITS ---
Date of service: 05/06/23 Time of Service: 13:21 Care Management Progress Note Progress Note Text Progress Note Text: S/O: CM spoke with [facility] who reported she would submit prior authorization for Shannon's admission to their facility. CM will continue to follow. A: Shannon is a 62 year old female admitted to [facility] on 05/02/23 for hypokalemia, weakness, frequent falls. P: Shannon will likely transition to a SNF for short term rehab; referral is sent to [facility] at her request. 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 and follow up with her PCP and discharge plan of care. CM will continue to follow.
--- NOTE | 2023-05-06 13:20 | PDOC.CMPRO ---
Date of service: 05/06/23 Time of Service: 13:21 Care Management Progress Note Progress Note Text Progress Note Text: S/O: CM spoke with [facility] who reported she would submit prior authorization for Shannon's admission to their facility. CM will continue to follow. A: Shannon is a 62 year old female admitted to [facility] on 05/02/23 for hypokalemia, weakness, frequent falls. P: Shannon will likely transition to a SNF for short term rehab; referral is sent to [facility] at her request. 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 and follow up with her PCP and discharge plan of care. CM will continue to follow.
[2023-05-06 15:18] VITALS: BP 159/108; PULSE 80; RESP 18; TEMP 36.6; O2SAT 97
[2023-05-06 16:18] LABS: Bilirubin Negative (Negative); Blood Moderate (Negative); Clarity Clear (Clear); Glucose Negative (Negative); Ketones Negative (Negative); Leukocyte Esterase Negative (Negative); Nitrite Negative (Negative); Urobilinogen 0.2 mg/dL (Up to 0.2); pH 5.5 (5-8)
[2023-05-06 16:28] LABS: Bacteria Negative HPF (Negative); C & S Indicated? No; Casts Negative LPF (Negative); Crystals Negative HPF (Negative); Epithelial Cells Rare HPF (Negative); Mucus Negative (Negative); WBC Negative HPF (0-5)
[2023-05-06 16:47] LABS: *AMPHETAMINES SCREEN URINE Negative (Negative); *BARBITURATES SCREEN URINE Negative (Negative); *BENZODIAZEPINES SCREEN URINE Negative (Negative); Cannabinoids THC Negative (Negative); Cocaine Screen,Urine Negative (Negative); METHADONE URINE SCREEN Negative (Negative); OPIATES URINE SCREEN Negative (Negative)
[2023-05-06 16:56] LABS: Tricyclic Antidepressants Negative (Negative)
[2023-05-06] MEDS: Acetaminophen 325 MG TAB PO (17:50)
[2023-05-06] MEDS: LORazepam 2 MG/ML VIAL 1 MG IM (18:50)
[2023-05-06] MEDS: Haloperidol 5 MG/ML VIAL 4 MG IM/IV (18:50)
[2023-05-06] MEDS: diphenhydrAMINE 50 MG/ML VIAL 25 MG IM (18:54)
[2023-05-06] MEDS: cloNIDine 0.1 MG TAB PO (19:41)
[2023-05-06 20:01] VITALS: BP 170/120; PULSE 88; RESP 16; TEMP 37; O2SAT 98
[2023-05-06 20:35] VITALS: BP 170/114; PULSE 81
[2023-05-06 21:20] VITALS: BP 142/97; PULSE 84
[2023-05-06 23:18] VITALS: BP 121/92; PULSE 83; RESP 16; TEMP 36.8; O2SAT 97
[2023-05-07 03:40] VITALS: BP 128/90; PULSE 72; RESP 15; TEMP 36; O2SAT 97
[2023-05-07 07:26] LABS: Abs Immature Grans 0.01 10^3/uL (0.0-0.06); Absolute Basophil Count 0.03 10^3/uL (0.0-0.2); Absolute Eosinophil Count 0.12 10^3/uL (0.0-0.7); Absolute Lymphocyte Count 1.41 10^3/uL (1.2-3.4); Absolute Monocyte Count 0.53 10^3/uL (0.1-0.8); Absolute Neutrophil Count 3.61 10^3/uL (1.2-6.7); Basophils % 0.5; Eosinophils % 2.1; HCT 38.6 % (36.0-46.0); HGB 13.5 g/dL (11.2-15.7); Immature Grans % 0.2; Lymphocytes % 24.7; MCH 30.8 pg (27.0-33.0); MCV 88 fL (80-95); MPV 9.6 fL (8.0-11.0); Monocytes % 9.3; Neutrophils % 63.2; Platelet Count 231 10^3/uL (130-400); RBC 4.39 10^6/uL (3.93-5.22); RDW 13.4 % (11.7-14.6); RDW-SD 43.4 fL; WBC 5.71 10^3/uL (4.4-10.8)
[2023-05-07 07:47] LABS: ALT 14 U/L (14-59); AST 14 U/L (15-37); Albumin 3.2 g/dL (3.4-5.0); Alkaline Phosphatase 47 U/L (46-116); Anion Gap 10.3 mmol/L (3-11); BUN 12 mg/dL (7-18); Bilirubin, Total 0.5 mg/dL (0.2-1.0); CO2 25.7 mmol/L (21.0-32.0); Calcium 9.3 mg/dL (8.5-10.1); Chloride 104 mmol/L (98-107); Glucose 93 mg/dL (74-106); Magnesium 1.8 mg/dL (1.8-2.4); Potassium 3.5 mmol/L (3.5-5.1); Sodium 140 mmol/L (136-145); Total Protein 6.9 g/dL (6.4-8.2)
[2023-05-07] MEDS: Spironolactone 25 MG TAB PO (08:11)
[2023-05-07] MEDS: Divalproex 250 MG TABEC PO (08:11)
[2023-05-07] MEDS: Acetaminophen 325 MG TAB PO ×2 (08:11→12:07)
[2023-05-07] MEDS: Pantoprazole 40 MG TABCR PO (08:12)
[2023-05-07] MEDS: Losartan 50 MG TAB 100 MG PO (08:12)
[2023-05-07] MEDS: Acetylcysteine 600 MG CAP 1800 MG PO (08:12)
[2023-05-07] MEDS: FLUoxetine 20 MG CAP 60 MG PO (08:12)
[2023-05-07] MEDS: amLODIPine 5 MG TAB PO (08:13)
[2023-05-07 08:56] VITALS: BP 117/80; PULSE 84; TEMP 36.3; O2SAT 95
[2023-05-07 12:25] VITALS: BP 126/88; PULSE 79; RESP 16; TEMP 37.6; O2SAT 95
--- NOTE | 2023-05-07 12:32 | CMPROGNOTE_ITS ---
Date of service: 05/07/23 Time of Service: 12:32 Care Management Progress Note Progress Note Text Progress Note Text: S/O: Per Neurology, Shannon requires testing for CJD which is not available in this facility. Neuro advocated for transfer to [facility], where Shannon has a scheduled appointment later this year. She was accepted in transfer and transported via [facility]. A: Shannon is a 62 year old female admitted to [facility] on 05/02/23 for hypokalemia, weakness, frequent falls. P: Shannon was accepted in transfer by [facility] for continued neurological workup. She was transported via [facility]. She will follow up with her PCP, Neuro, and her discharge plan of care.
--- NOTE | 2023-05-07 12:51 | DSE_ITS ---
Date of service: 05/07/23 Time of Service: 12:51 DS: Diagnosis Discharge Diagnosis (1) Acute hypokalemia: Status: Acute (2) Concussion: Status: Acute (3) Memory problem: Status: Acute (4) Urine incontinence: Status: Acute (5) Headache: Status: Acute (6) Bladder mass: Status: Acute (7) HTN (hypertension): (8) Nausea & vomiting: Status: Acute Discharge Plan Disposition Patient Disposition: Transfer-Acute Inpatient Care Specific Acute Inpt Facility: [facility] Condition: Stable Discharge Details Reason For Visit: Hypokalemia, Weakness, Frequent Falls, Head Injury Admit Date/Time: 05/02/23 18:38 Admit Provider: Phong Wise Attending Provider: Phong Wise Primary Care Provider: Lyubov Delgado Hospital Course Hospital Course: Ms. Brock is a 62 year old female with history of hypertension, remote breast cancer, and recently noted bladder mass associated with hydronephrosis who presented to the ED for the fourth time in the past month, this visit with headache and vomiting after falling and hitting her head on the radiator.? She has had memory loss recently and can't recall if she lost consciousness or exactly how she fell, but she has had some difficulty with balance over the past year that is worse in the last few weeks.?Other c/o including daily headaches, dizziness, weakness, memory changes, urinary incontinence, insomnia, anxiety, ?vision changes.? Though some of these symptoms may have been occurring longer, particularly the daily headaches and urinary incontinence.? Her neurological exam was found to be significant for cognitive and memory difficulties and generalized weakness with more focal left leg weakness.? No obvious findings of myelopathy or peripheral neuropathy, though exam is limited by her mental status.? Imaging included MRI brain which showed no significant acute intracranial findings, no abnormal enhancing intracranial findings and periventricular signal abnormality consistent with chronic small vessel disease unchanged from MRI done on 04/23/23. She was seen by neurology here and differential remains broad including NPH (ventricles appear enlarged enough to warrant further work-up), concussion(s) (known concussion at this time, but unknown if she had previous), peripheral vertigo independently or secondary to concussion, other dizziness such as OH, dementia - rapidly progressive or otherwise, encephalitis/encephalopathy such as autoimmune or paraneoplastic, CJD or other infectious etiology, other.? Lab testing pending includes PINKY, RF, pareneoplastic panel, recommended LP but unable to do high-volume tap here, Dr Green did reach out to [facility] neuology, DR Malloy to discuss transfer for further evaluation and was accepted. She will be transported by ground EMS. discharge discussed with Dr Leong. Home Meds and New Rx's Prescriptions: New spironolactone 25 mg Tablet 25 mg PO DAILY Qty: 0 0RF amlodipine 5 mg Tablet 5 mg PO DAILY Qty: 0 0RF acetylcysteine 600 mg Capsule 1,800 mg PO BID Qty: 0 0RF doxepin 50 mg Capsule 50 mg PO HS Qty: 0 0RF scopolamine base 1 mg over 3 days Patch 3 Day 1 mg transdermal Q72H Qty: 0 0RF Continued meloxicam 15 mg Tablet 15 mg PO DAILY fluoxetine 20 mg Capsule 60 mg PO DAILY ondansetron 4 mg tablet,disintegrating 4 mg PO Q8H PRN (Reason: nausea and vomiting) Qty: 30 0RF pantoprazole [Protonix] 40 mg tablet,delayed release (DR/EC) 40 mg PO DAILY Qty: 30 0RF potassium chloride 20 mEq tablet,ER particles/crystals 20 meq PO DAILY losartan 100 mg Tablet 100 mg PO DAILY No Action benzonatate 100 mg capsule 100 mg PO TID PRN (Reason: cough) Qty: 14 0RF Patient Comments: not taking valacyclovir 500 mg Tablet 500 mg PO DAILY Discharge Instructions Activity:: Activity as Tolerated Equipment/Supplies:: No Equipment Needed Diet:: Other Discharge Orders Discharge Orders: Discharge Order (Routine); Ordered 05/07/23 Ordered By: Michelle Khalil DS: Summary Time Spent with Patient providing and/or coordinating discharge services: Greater than 30 minutes Status at Discharge Functional status at discharge: bed bound Overall status at discharge: patient is not back to baseline Mental Status: other Speech and Movement: speech and movement normal Mood: congruent mood and other Affect: normal affect Exam Const General: no acute distress Nutritional Appearance: average body habitus Orientation: alert, awake and confused Limitations: altered mental status [facility] Head: normal to inspection, normocephalic and atraumatic Face and sinus: normal facial exam Mouth: oral mucosae normal Chest Chest: normal inspection of the chest Cardio Rate: regular rate Rhythm: regular rhythm GI Inspection: normal to inspection Skin General skin exam: no rashes or lesions noted Neuro General: patient alert, patient awake and patient confused Cranial Nerves: EOM intact bilaterally Cognition: abnormal cognition Motor: muscle tone normal throughout and strength 5/5 throughout Extrem General: normal to inspection and full ROM Psych Mental Status: other Speech and Movement: speech and movement normal Mood: congruent mood and other Affect: normal affect DS: Data Vitals/I&O Vitals and I&O: Vital Signs Temperature 37.6 C 05/07/23 12:25 Temperature Source Tympanic 05/07/23 12:25 Pulse 79 05/07/23 12:25 Pulse Rhythm Regular 05/07/23 08:00 Respiratory Rate 16 05/07/23 12:25 Respiratory Effort Normal, Non-Labored 05/07/23 08:00 Respiratory Depth Normal 05/07/23 08:00 Respiratory Pattern Normal 05/07/23 08:00 Blood Pressure 126/88 05/07/23 12:25 Pulse Oximetry 95 05/07/23 12:25 Oxygen Delivery Method Room Air 05/07/23 12:25 Oxygen Flow Rate 0 05/07/23 12:25 Pain Level 2 05/07/23 12:25 Comment Nurse Eleni aware 05/07/23 12:25 Intake & Output 05/06/23 05/07/23 05/07/23 23:59 11:59 23:59 Intake Total 1177.5 / 1177.5 240 / 240 Output Total 2000 / 3000 750 / 800 50 / 800 Balance -822.5 / -1822.5 -510 / -560 -50 / -560 Weight 38.5 kg Intake: IV 97.5 / 97.5 Oral 1080 / 1080 240 / 240 Output: Urine 2000 / 3000 750 / 800 50 / 800 Other: Urine Color Pale Straw Yellow Yellow Urine Appearance Cloudy Clear Sediment Voiding Methods Incontinent Data Completed and Pending Labs on day of discharge: Labs from last 24 hours 05/07/23 05/07/23 05/07/23 Unknown 11:17 06:10 WBC 5.71 RBC 4.39 Hgb 13.5 Hct 38.6 MCV 88 MCH 30.8 MCHC 35.0 RDW 13.4 Plt Count 231 MPV 9.6 Immature Gran % 0.2 Neutrophils % 63.2 Lymphocytes % 24.7 Monocytes % 9.3 Eosinophils % 2.1 Basophils % 0.5 Nucleated RBC % 0.0 Absolute Neutrophils 3.61 Absolute Lymphocytes 1.41 Absolute Monocytes 0.53 Absolute Eosinophils 0.12 Absolute Basophils 0.03 Sodium Potassium Chloride Carbon Dioxide Anion Gap BUN Creatinine Est GFR (CKD-EPI 2020) Glucose Calcium Magnesium Total Bilirubin AST ALT Alkaline Phosphatase Total Protein Albumin Aldosterone Urine Color Urine Clarity Urine pH Ur Specific [place] Urine Protein Urine Ketones Urine Blood Urine Nitrite Urine Bilirubin Urine Urobilinogen Ur Leukocyte Esterase Urine RBC Urine WBC Ur Epithelial Cells Urine Crystals Urine Bacteria Urine Casts Urine Mucus Ur Culture Indicated? Urine Osmolality Pending Urine Glucose Urine Opiates Screen Urine Methadone Screen Ur Barbiturates Screen Ur Tricyclics Screen Ur Amphetamines Screen U Benzodiazepines Scrn Urine Cocaine Screen Ur THC Screen Add-On Test Request Pending 05/07/23 05/06/23 05/06/23 06:10 14:58 14:58 WBC RBC Hgb Hct MCV MCH MCHC RDW Plt Count MPV Immature Gran % Neutrophils % Lymphocytes % Monocytes % Eosinophils % Basophils % Nucleated RBC % Absolute Neutrophils Absolute Lymphocytes Absolute Monocytes Absolute Eosinophils Absolute Basophils Sodium 140 Potassium 3.5 Chloride 104 Carbon Dioxide 25.7 Anion Gap 10.3 BUN 12 Creatinine 1.0 Est GFR (CKD-EPI 2020) 63.70 Glucose 93 Calcium 9.3 Magnesium 1.8 Total Bilirubin 0.5 AST 14 L ALT 14 Alkaline Phosphatase 47 Total Protein 6.9 Albumin 3.2 L Aldosterone Urine Color Yellow Urine Clarity Clear Urine pH 5.5 Ur Specific [place] 1.010 Urine Protein Negative Urine Ketones Negative Urine Blood Moderate H Urine Nitrite Negative Urine Bilirubin Negative Urine Urobilinogen 0.2 Ur Leukocyte Esterase Negative Urine RBC 5-10 H Urine WBC Negative Ur Epithelial Cells Rare Urine Crystals Negative Urine Bacteria Negative Urine Casts Negative Urine Mucus Negative Ur Culture Indicated? No Urine Osmolality Urine Glucose Negative Urine Opiates Screen Negative Urine Methadone Screen Negative Ur Barbiturates Screen Negative Ur Tricyclics Screen Negative Ur Amphetamines Screen Negative U Benzodiazepines Scrn Negative Urine Cocaine Screen Negative Ur THC Screen Negative Add-On Test Request 05/03/23 07:58 WBC RBC Hgb Hct MCV MCH MCHC RDW Plt Count MPV Immature Gran % Neutrophils % Lymphocytes % Monocytes % Eosinophils % Basophils % Nucleated RBC % Absolute Neutrophils Absolute Lymphocytes Absolute Monocytes Absolute Eosinophils Absolute Basophils Sodium Potassium Chloride Carbon Dioxide Anion Gap BUN Creatinine Est GFR (CKD-EPI 2020) Glucose Calcium Magnesium Total Bilirubin AST ALT Alkaline Phosphatase Total Protein Albumin Aldosterone 8.1 Urine Color Urine Clarity Urine pH Ur Specific [place] Urine Protein Urine Ketones Urine Blood Urine Nitrite Urine Bilirubin Urine Urobilinogen Ur Leukocyte Esterase Urine RBC Urine WBC Ur Epithelial Cells Urine Crystals Urine Bacteria Urine Casts Urine Mucus Ur Culture Indicated? Urine Osmolality Urine Glucose Urine Opiates Screen Urine Methadone Screen Ur Barbiturates Screen Ur Tricyclics Screen Ur Amphetamines Screen U Benzodiazepines Scrn Urine Cocaine Screen Ur THC Screen Add-On Test Request PFSH All Active Problems (Updated 05/07/23 @ 07:32 by Tiesha Jeong NP) Urine incontinence (Acute) Memory problem (Acute) per patient Discharge planning issues (Acute) DVT prophylaxis (Acute) Acute hypokalemia (Acute) Laceration of scalp (Acute) Bladder mass (Acute) Hydronephrosis (Acute) Headache (Acute) Nausea & vomiting (Acute) Gastritis (Acute) Fall (Acute) Weakness (Acute) Concussion (Acute) Medical History Breast CA left HTN (hypertension) Memory problem per patient Surgical History H/O mastectomy Bilat History of shoulder surgery S/P hernia repair Family History (Updated 05/02/23 @ 21:31 by Phong Wise) Father Hypokalemia Mother Schizophrenia Cancer Liver Brother Heart disease Social History (Updated 05/02/23 @ 21:29 by Phong Wise) Smoking/Tobacco Use Status: Former Tobacco Use Smoking risk assessment performed?: Yes Alcohol Intake: former Drug use: Socially Substance use type: marijuana Details: MARIJUANA TON[employer] Housing: house Do you feel safe at home: Yes Do you feel safe in your relationship?: Yes Additional Social history: Was living and working at [employer] in [place], [place], recently closed , but went to live with ex Issa crenshaw 04/08 ED visit. 3 daughters, two in [place] Time Spent with Patient Time Spent with Patient: 45-69 minutes Time was spent: preparing to see the patient(eg.review tests), referring, communicating with other health care professional and care coordination
--- NOTE | 2023-05-07 12:52 | W.PM.PROGNOT ---
Date of Service Date of service: 05/07/23 Time of Service: 12:52 Assessment and Plan Assessment and plan (1) Headache: Status: Acute (2) Nausea & vomiting: Status: Acute (3) Weakness: Status: Acute (4) Fall: Status: Acute (5) Concussion: Status: Acute (6) Memory problem: Status: Acute Assessment and plan: Ms. Brock presents with ~2month decline including daily headaches, dizziness, weakness, memory changes, urinary incontinence, insomnia, anxiety, ?vision changes. Though some of these symptoms may have been occurring longer, particularly the daily headaches and urinary incontinence. It's unclear if all of these symptoms are related to a single etiology; or if she has multiple issues occurring at the same time. Her neurological exam is significant for cognitive and memory difficulties and generalized weakness particularly of the LE with waxing/waning focal weakness. No obvious findings of myelopathy or peripheral neuropathy, though exam is limited by her mental status. PT has been able to get her to stand, but she is still unable to walk. Differential remains broad including NPH (ventricles appear enlarged enough to me to warrant further work-up), concussion(s) (known concussion at this time, but unknown if she had previous), peripheral vertigo independently or secondary to concussion, other dizziness such as OH, dementia - rapidly progressive or otherwise, encephalitis/encephalopathy such as autoimmune or paraneoplastic, CJD (low likelihood but part of the ddx) or other infectious etiology, other. Work-up: -Lab testing: PINKY, RF, pareneoplastic panel - pending -LP. Unable to do high-volume tap here or LP at all per infection control. Will check opening pressure, cell count, glucose, protien, gram stain/cx, VDRL, HSV1/2, paraneoplastic panel, RT-QuIC. Accepted for further work-up at [facility]. Treatment: She otherwise appears to have a concussion and daily headaches, though these preceded the current concussion; all complicated by medication overuse. -For acute concussion, I had recommended NAC 4000mg x 1, then 2000mg BID x 3 days, then 1500mg BID x 3 days - which she started on 05/05/23. -We also started Depakote 250mg BID for migraine prevention s/p concussion. Switch to doxepin vs amitripytline to help regulate her sleep schedule instead? These could theoretically worsen memory given anticholinergic effects, but her abnormal sleep schedule may be contributing to poor mental status as well. -Ok to continue APAP prn. Continue PT/OT. She should f/up in neurology clinic post-discharge - will arrange locally here. Subjective Subjective Interval history since last seen: After extensive evaluation by infection control and work by [employer] team, hospital has said we do not have the necessary equipment to perform LP here given concern for CJD. Thus, have reached out to [facility] for transfer and neurology there has accepted her for further evaluation and work-up. She otherwise remains quite confused. Delusional at times. Overnight apparently found in bed and to have dumped her water on her head. Apparently not sleeping at night. Does sleep during the day. 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 She notes she would work any shift and has never slept regularly. She continues to have headaches. Reporting nausea now, but no emesis since yesterday am. Exam Narrative Exam Narrative: Physical Exam: Constitutional: Patient of apparent stated age, well nourished, well developed, no acute distress Neuro: MS/Language/Speech: Alert, oriented to person - still very confused; clear language (fluency and comprehension), no dysarthria Motor: Normal bulk and tone. FMM intact, no pronator drift. 4++/5 strength in bilateral upper extremities; 4-/5 bilateral hip flexors/quads, slightly weaker on the right today. 4+/5 bilateral ankle dorsiflexion. Coordination: Finger to nose performed without dysmetria Objective Last Vital Signs Temp 99.6 F 05/07/23 12:25 Pulse 79 05/07/23 12:25 Resp 16 05/07/23 12:25 BP 126/88 05/07/23 12:25 Pulse Ox 95 05/07/23 12:25 Laboratory Results - last 24 hr 05/03/23 05/06/23 05/06/23 07:58 14:58 14:58 WBC RBC Hgb Hct MCV MCH MCHC RDW Plt Count MPV Immature Gran % Neutrophils % Lymphocytes % Monocytes % Eosinophils % Basophils % Nucleated RBC % Absolute Neutrophils Absolute Lymphocytes Absolute Monocytes Absolute Eosinophils Absolute Basophils Sodium Potassium Chloride Carbon Dioxide Anion Gap BUN Creatinine Est GFR (CKD-EPI 2020) Glucose Calcium Magnesium Total Bilirubin AST ALT Alkaline Phosphatase Total Protein Albumin Aldosterone 8.1 Urine Color Yellow Urine Clarity Clear Urine pH 5.5 Ur Specific [place] 1.010 Urine Protein Negative Urine Ketones Negative Urine Blood Moderate H Urine Nitrite Negative Urine Bilirubin Negative Urine Urobilinogen 0.2 Ur Leukocyte Esterase Negative Urine RBC 5-10 H Urine WBC Negative Ur Epithelial Cells Rare Urine Crystals Negative Urine Bacteria Negative Urine Casts Negative Urine Mucus Negative Ur Culture Indicated? No Urine Glucose Negative Urine Opiates Screen Negative Urine Methadone Screen Negative Ur Barbiturates Screen Negative Ur Tricyclics Screen Negative Ur Amphetamines Screen Negative U Benzodiazepines Scrn Negative Urine Cocaine Screen Negative Ur THC Screen Negative 05/07/23 05/07/23 06:10 06:10 WBC 5.71 RBC 4.39 Hgb 13.5 Hct 38.6 MCV 88 MCH 30.8 MCHC 35.0 RDW 13.4 Plt Count 231 MPV 9.6 Immature Gran % 0.2 Neutrophils % 63.2 Lymphocytes % 24.7 Monocytes % 9.3 Eosinophils % 2.1 Basophils % 0.5 Nucleated RBC % 0.0 Absolute Neutrophils 3.61 Absolute Lymphocytes 1.41 Absolute Monocytes 0.53 Absolute Eosinophils 0.12 Absolute Basophils 0.03 Sodium 140 Potassium 3.5 Chloride 104 Carbon Dioxide 25.7 Anion Gap 10.3 BUN 12 Creatinine 1.0 Est GFR (CKD-EPI 2020) 63.70 Glucose 93 Calcium 9.3 Magnesium 1.8 Total Bilirubin 0.5 AST 14 L ALT 14 Alkaline Phosphatase 47 Total Protein 6.9 Albumin 3.2 L Aldosterone Urine Color Urine Clarity Urine pH Ur Specific [place] Urine Protein Urine Ketones Urine Blood Urine Nitrite Urine Bilirubin Urine Urobilinogen Ur Leukocyte Esterase Urine RBC Urine WBC Ur Epithelial Cells Urine Crystals Urine Bacteria Urine Casts Urine Mucus Ur Culture Indicated? Urine Glucose Urine Opiates Screen Urine Methadone Screen Ur Barbiturates Screen Ur Tricyclics Screen Ur Amphetamines Screen U Benzodiazepines Scrn Urine Cocaine Screen Ur THC Screen Time Spent with Patient Time Spent with Patient: 35-49 minutes Time was spent: preparing to see the patient(eg.review tests), referring, communicating with other health client care consultant, counseling the patient and care coordination
[2023-05-07 21:55] LABS: Osmolality, Urine 415 mOsm/kg (150-1150)
[2023-05-09 13:57] LABS: Renin Activity, Plasma 1.3 ng/mL/h
== END 2023-05-07 13:53 | disposition short-term general hospital (02) | DRG 89 ==
LOC: ER 18:42 → MS 19:50
PROVIDERS: Nurse Practitioner Family; Student in an Organized Health Care Education/Training Program; Admitting Provider Family Medicine; Emergency Provider Registered Nurse Emergency; PCP Nurse Practitioner Family; Visit Provider Family Medicine
DX: S06.0XAA Concussion with loss of consciousness status unknown, initial encounter (principal); N13.30 Unspecified hydronephrosis; E87.6 Hypokalemia; S01.01XA Laceration without foreign body of scalp, initial encounter; W18.39XA Other fall on same level, initial encounter; W22.09XA Striking against other stationary object, initial encounter; R53.1 Weakness; R29.6 Repeated falls; R32 Unspecified urinary incontinence; R11.2 Nausea with vomiting, unspecified; I10 Essential (primary) hypertension; R51.9 Headache, unspecified; R41.3 Other amnesia; N32.89 Other specified disorders of bladder; Z85.3 Personal history of malignant neoplasm of breast; F41.9 Anxiety disorder, unspecified; G47.00 Insomnia, unspecified; K29.70 Gastritis, unspecified, without bleeding; F12.90 Cannabis use, unspecified, uncomplicated
CPT/HCPCS: 36415; 70553; 80048; 80053; 80307; 83690; 83935; 85652; 87389; 93005; 97110; 97112; 97162; 97530; J1650; 70450; 71045; 81003; 81015; 82088; 82607; 83519; 83520; 83735; 84244; 84484; 85025; 85610; 85730; 86256; 86592; 93010; 99232; 99239; J1200; J1630; J2060; J2405; J2765; J3475; J3480